=== PATIENT | male | born 1955 | race Caucasian/White ===

== ENCOUNTER 2017-09-19 11:04 | Inpatient (IN) | payer MEDICAID, MEDICARE ==
[2017-09-19 11:04] VITALS: BMI 20.9
--- NOTE | 2017-09-19 11:25 | C.PDOC ---
History Of Present Illness 61 year old male with PMHx of CVA presents to the ED with complaints of "they [ his family] can't take care of me at home." Patient reports he lives at home with his family, , and has visiting nurse. However, patient feels is no longer able to help him due to her being sick. Patient states "she can't help me go to the bathroom so I just go on myself." Patient has no new symptoms and denies fever, chest pain, or other complaints at this time. Time Seen by Provider: 09/19/17 11:21 Chief Complaint (Nursing): Medical Clearance History Per: Patient History/Exam Limitations: no limitations Onset/Duration Of Symptoms: Unknown Pain Scale Rating Of: 0 Reports Recently: Seen In ED Recent travel outside of the [place]: No Additional History Per: EMS, Prior Records Past Medical History Reviewed: Historical Data, Nursing Documentation, Vital Signs Vital Signs: Last Vital Signs Temp 98.5 F 09/19/17 11:15 Pulse 107 H 09/19/17 11:15 Resp 18 09/19/17 11:15 BP 192/115 H 09/19/17 11:15 Pulse Ox 99 09/19/17 13:08 - Medical History PMH: Depression, Diabetes, HTN, Hypercholesterolemia, Seizures Surgical History: Tonsillectomy - [facility] Procedures INJECT/INFUSE ELECTROLYT (05/04/14) INJECT/INFUSE NEC (09/20/14) PSYCHIAT DRUG THERAP NEC (09/06/13) Family History: States: Unknown Family Hx, Diabetes - Social History Hx Tobacco Use: No Hx Alcohol Use: No Hx Substance Use: No - Immunization History Hx Tetanus Toxoid Vaccination: No Hx Influenza Vaccination: Yes Hx Pneumococcal Vaccination: No Review Of Systems Constitutional: Negative for: Fever, Chills Cardiovascular: Negative for: Chest Pain, Palpitations Respiratory: Negative for: Cough, Shortness of Breath Gastrointestinal: Negative for: Nausea, Vomiting, Abdominal Pain Physical Exam - Physical Exam Appears: Non-toxic, No Acute Distress, Unkempt Skin: Warm, Dry, No Rash, Other (dry bodily fluids and feces; Stage I ulcer to buttocks) Head: Atraumatic, Normacephalic, No Tenderness Eye(s): bilateral: Normal Inspection, PERRL, EOMI Oral Mucosa: Moist Neck: Supple Chest: Symmetrical, No Deformity Cardiovascular: Rhythm Regular, No Murmur, Other (Patient is tachycardic ) Respiratory: No Rales, No Rhonchi, No Wheezing, Other (clear to auscultation bilaterally ) Gastrointestinal/Abdominal: Soft, No Tenderness, No Distention, No Guarding, No Rebound Extremity: No Pedal Edema, Capillary Refill (< 2 seconds ), No Swelling Neurological/Psych: Oriented x3, Other (chronic hemiparesis to left uppper and lower extremity ) ED Course And Treatment - Laboratory Results Result Diagrams: 09/19/17 12:14 09/19/17 12:14 ECG: Interpreted By Me, Viewed By Me ECG Rhythm: Sinus Rhythm Rate From EC O2 Sat by Pulse Oximetry: 99 (RA) Pulse Ox Interpretation: Normal - Radiology CXR: Interpreted by Me CXR Interpretation: Yes: No Acute Disease Progress Note: EKG, CXR, blood work, and labs were ordered. Reevaluation Time: 13:26 Reassessment Condition: Unchanged - Physician Consult Information Time Consulting Physician Contacted: 13:26 Physician Contacted: Ilda Garcia Outcome Of Conversation: AWARE OF ER FINDINGS, WILL ADMIT Disposition Counseled Patient/Family Regarding: Studies Performed, Diagnosis - Disposition Disposition: HOSPITALIZED Disposition Time: 13:29 Condition: STABLE Forms: [facility] (Mexican) - POA Present On Arrival: Poor Glycemic Control - Clinical Impression Clinical Impression: Uncontrolled diabetes mellitus, FTT (failure to thrive) in adult - Scribe Statement The provider has reviewed the documentation as recorded by the Scribe Roxanne Cortes All medical record entries made by the Scribe were at my direction and personally dictated by me. I have reviewed the chart and agree that the record accurately reflects my personal performance of the history, physical exam, medical decision making, and the department course for this patient. I have also personally directed, reviewed, and agree with the discharge instructions and disposition. Decision To Admit - Pt Status Changed To: Hospital Disposition Of: Observation - . Bed Request Type: Regular Admitting Physician: Ilda Garcia Patient Diagnosis: Uncontrolled diabetes mellitus, FTT (failure to thrive) in adult
[2017-09-19 12:24] LABS: BASO % 0.7 % (0.0-2.0); EOS # 0.1 K/uL (0.0-0.7); EOS % 2.6 % (0.0-4.0); LYMPH # 1.2 K/uL (1.0-4.3); LYMPH % 31.4 % (20.0-40.0); MEAN CORPUSCULAR HEMOGLOBIN 29.2 pg (27.0-31.0); MEAN CORPUSCULAR HGB CONC 34.4 g/dL (33.0-37.0); MEAN PLATELET VOLUME 7.9 fL (7.2-11.7); MONO # 0.3 K/uL (0.0-0.8); MONO % 8.1 % (0.0-10.0); NRBC % 0.1 % (0.0-2.0); RED CELL DISTRIBUTION WIDTH 14.4 % (11.5-14.5); WHITE BLOOD COUNT 3.9 K/uL (4.8-10.8)
--- NOTE | 2017-09-19 12:33 | RAD ---
PROCEDURE: CHEST RADIOGRAPH, 1 VIEW HISTORY: Medical clearance COMPARISON: None available. FINDINGS: LUNGS: No focal infiltrate or effusion. Small nodular density at the right lung base may represent confluence of shadows with ribs vessels. PLEURA: No pneumothorax or pleural fluid seen. CARDIOVASCULAR: Normal. OSSEOUS STRUCTURES: Degenerative changes in the spine with paravertebral osteophytes. VISUALIZED UPPER ABDOMEN: Normal. OTHER FINDINGS: None. IMPRESSION: No active disease.
[2017-09-19 12:37] LABS: BLOOD UREA NITROGEN 21 mg/dL (9-20); CARBON DIOXIDE 33 mmol/L (22-30); CHLORIDE 102 mmol/L (98-107); GFR AFRICAN-AMERICAN > 60; GLUCOSE,RANDOM 276 mg/dL (75-110); POTASSIUM 3.9 mmol/L (3.6-5.2); SODIUM 142 mmol/L (132-148)
[2017-09-19 13:16] LABS: RBC URINE 1 /hpf (0-3); URINE BILIRUBIN NEGATIVE (NEGATIVE); URINE BLOOD 1+ (NEGATIVE); URINE COLOR Yellow (YELLOW); URINE GLUCOSE (UA) 3+ mg/dL (Normal); URINE KETONE TRACE mg/dL (NEGATIVE); URINE LEUKOCYTE ESTERASE NEG Leu/uL (Negative); URINE PROTEIN 1+ mg/dL (NEGATIVE)
[2017-09-19] MEDS ORDERED: Labetalol 25mg/5ml Syringe IVP STA (13:31)
[2017-09-19] MEDS ORDERED: Oxycodone/Acetaminophen 5/325 mg Tab PO PRN (13:40)
[2017-09-19] MEDS ORDERED: Bisacodyl 5mg EC Tab PO PRN (13:40)
[2017-09-19] MEDS ORDERED: Labetalol 25mg/5ml Syringe ONE (13:54)
[2017-09-19] MEDS ORDERED: Dorzolamide 2% Opht Sol 10ml OU SCH (14:00)
--- NOTE | 2017-09-19 14:03 | CP.PCM.PN ---
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 States he cannot take his meds at appropriate times due to issues with hands/ vision/memory and often urinates on himself because he cannot get to the bathroom without assistance. typically his was able to take care of him, however she has become ill and is no longer able to provide care and the visiting nurse is not able to provide enough time to get all needs addressed. The patient currently denies fevers/chills, GALINDO, CP, SOB, abdominal pain, N/V/D, dysuria/freq/urg or lower extremity pain. 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, HLD Meds: Please refer to MAR Allergies: denies, patient is full code upon discussion Social: lives at home, if goes to [facility] does NOT want [facility] as per patient, unable to accomplish ADL/IADL, needs help ambulating at baseline Objective - Vital Signs/Intake and Output Vital Signs (last 24 hours): Temp Pulse Resp BP Pulse Ox 98.9 F 64 18 161/92 H 99 09/19/17 13:35 09/19/17 13:35 09/19/17 13:35 09/19/17 13:35 09/19/17 13:35 - Medications Medications: Current Medications Acetaminophen (Tylenol 325mg Tab) 650 mg PO Q6 PRN PRN Reason: Fever >100.4 F Aspirin (Aspirin Chewable) 81 mg PO DAILY [facility] Bisacodyl (Dulcolax) 10 mg PO DAILY PRN PRN Reason: Constipation Carvedilol (Coreg) 6.25 mg PO BID [facility] Divalproex Sodium (Depakote Dr) 500 mg PO DAILY [facility] Enoxaparin Sodium (Lovenox) 40 mg SC DAILY [facility] Famotidine (Pepcid) 20 mg PO BID [facility] Home Med (Atorvastatin [Lipitor]) 10 mg PO DIN [facility] Home Med (Brinzolamide [Azopt]) 5 ml OD BID [facility] Home Med (Levemir Flexpen) 30 units SQ HS [facility] Home Med (Travoprost [Travatan Z]) 2.5 ml OU HS [facility] Ibuprofen (Motrin Tab) 400 mg PO Q6 PRN PRN Reason: Pain, Mild (1-3) Insulin Aspart (Novolog) 10 unit SC AC [facility] Losartan Potassium (Cozaar) 100 mg PO DAILY [facility] Ondansetron HCl (Zofran Inj) 4 mg IVP Q6 PRN PRN Reason: Nausea/Vomiting Oxcarbazepine (Trileptal) 150 mg PO BID [facility] Oxycodone/Acetaminophen (Percocet 5/325 Mg Tab) 1 tab PO Q4 PRN PRN Reason: Pain, severe (8-10) Stop: 09/22/17 13:41 Sertraline HCl (Zoloft) 50 mg PO DAILY [facility] Sitagliptin Phosphate (Januvia) 100 mg PO DAILY [facility] - Labs Labs: 09/19/17 12:14 09/19/17 12:14 - Constitutional Appears: Non-toxic - Head Exam Head Exam: ATRAUMATIC - Eye Exam Eye Exam: absent: PERRL (patient has large cataract in right eye, enlarged pupil that is non reactive to light and glossed over, and does not tract similar to eother eye) Pupil Exam: Unequal - ENT Exam ENT Exam: Mucous Membranes Moist - Neck Exam Neck Exam: Full ROM. absent: Lymphadenopathy - Respiratory Exam Respiratory Exam: Clear to Ausculation Bilateral, NORMAL BREATHING PATTERN. absent: Rales, Rhonchi, Wheezes - Cardiovascular Exam Cardiovascular Exam: REGULAR RHYTHM - GI/Abdominal Exam GI & Abdominal Exam: Soft, Normal Bowel Sounds - Extremities Exam Extremities Exam: Full ROM. absent: Calf Tenderness - Back Exam Back Exam: NORMAL INSPECTION. absent: CVA tenderness (L), CVA tenderness (R) - Neurological Exam Neurological Exam: Alert, Awake, Oriented x3 - Psychiatric Exam Psychiatric exam: Normal Affect - Skin Skin Exam: Warm Assessment and Plan - Assessment and Plan (Free Text) Assessment: 61yo M admitted for failure to thrive Failure to Thrive -patient is unable to accomplish all ADL's on own and does not have adequate help at home -patient is partially blind -patient cannot ambulate by self -patient is eating well -will order RPR, B12/Folate, HIV, Hepatitis as they are not in the records; f/u results -patient is full code as per conversation HTN;chronic Carvedilol Losartan PO hydralazine PRN if BP is elevated above 185/95 DM; chronic -hold metformin -RISS low -c/w long acting insulin and januvia from home HLD;chronic -c/w lipitor Previous CVA w/ Defecits Lipitor control HTN Aspirin Proph Pepcid SCD Lovenox Fall Precautions Social work/PT Eval and Treat Brain MRI done last month; patient is at baseline and according to family he is not acting/talking differently and has no complaints at this time Dispo: [facility] will likely need placement into [facility]; patient does not wish to go to [facility] Case discussed with Dr. Garcia
[2017-09-19] MEDS: (Novolog) Insulin Aspart, Recombinant 100 u/ml 10 ml vial SC SCH (17:10)
[2017-09-19] MEDS: Dorzolamide 2% Opht Sol 10ml OU SCH (18:31)
[2017-09-19] MEDS ORDERED: Insulin Detemir 100 units/ml Vial (Levemir) SC SCH (22:00)
[2017-09-19] MEDS: Latanoprost 2.5 ml Opht Soln OU SCH (22:23)
[2017-09-20 06:41] LABS: BASO % 0.5 % (0.0-2.0); EOS # 0.1 K/uL (0.0-0.7); EOS % 1.6 % (0.0-4.0); HEMATOCRIT 34.2 % (35.0-51.0); LYMPH # 1.2 K/uL (1.0-4.3); LYMPH % 26.5 % (20.0-40.0); MEAN CELL VOLUME 84.9 fL (80.0-94.0); MEAN CORPUSCULAR HEMOGLOBIN 28.8 pg (27.0-31.0); MEAN CORPUSCULAR HGB CONC 33.9 g/dL (33.0-37.0); MEAN PLATELET VOLUME 8.2 fL (7.2-11.7); MONO # 0.4 K/uL (0.0-0.8); MONO % 8.9 % (0.0-10.0); NRBC % 0.1 % (0.0-2.0); RED CELL DISTRIBUTION WIDTH 14.3 % (11.5-14.5); WHITE BLOOD COUNT 4.4 K/uL (4.8-10.8)
[2017-09-20 06:56] LABS: ALKALINE PHOSPHATASE 69 U/L (38-126); ALT/SGPT 56 U/L (21-72); AST/SGOT 28 U/L (17-59); BILIRUBIN,TOTAL 0.4 mg/dL (0.2-1.3); BLOOD UREA NITROGEN 19 mg/dL (9-20); CALCIUM 8.9 mg/dl (8.6-10.4); CARBON DIOXIDE 29 mmol/L (22-30); CHLORIDE 103 mmol/L (98-107); GFR AFRICAN-AMERICAN > 60; GLUCOSE,RANDOM 204 mg/dL (75-110); SODIUM 140 mmol/L (132-148); TOTAL PROTEIN 7.6 g/dL (6.3-8.3)
[2017-09-20 07:55] LABS: FOLATE 13.7 ng/mL
--- NOTE | 2017-09-20 07:55 | CP.PCM.PN ---
Subjective - Date & Time of Evaluation Date of Evaluation: 09/20/17 Time of Evaluation: 09:41 - Subjective Subjective: PGY2 Medicine Note for Dr. Garcia; all management as per Dr. Garcia Pt seen and examined at bedside this AM; patient states he has "not had a BM in over a month" and seen in MAR that Dr. Garcia entered orders for laxative but patient still requesting something "stronger" to go to the bathroom; will give mag citrate; patient has no other complaints; denies fevers/chills, GALINDO, CP, SOB , abdominal pain, N/V/D, dysuria/freq/urg, or lower extremity pain/swelling. Patient is newly Hep C Postive; GI consult placed. INR orderdd. HepC viral load ordered and genotyping for tx. Objective - Vital Signs/Intake and Output Vital Signs (last 24 hours): Temp Pulse Resp BP Pulse Ox 98.4 F 91 H 20 159/89 H 98 09/19/17 23:54 09/19/17 23:54 09/19/17 23:54 09/19/17 23:54 09/19/17 23:54 Intake and Output: 09/20/17 09/20/17 06:59 18:59 Intake Total 550 Balance 550 - Medications Medications: Current Medications Acetaminophen (Tylenol 325mg Tab) 650 mg PO Q6 PRN PRN Reason: Fever >100.4 F Aspirin (Aspirin Chewable) 81 mg PO DAILY REPLACED BY [facility] Bisacodyl (Dulcolax) 10 mg PO DAILY PRN PRN Reason: Constipation Carvedilol (Coreg) 12.5 mg PO BID REPLACED BY [facility] Last Admin: 09/19/17 17:51 Dose: 12.5 mg Divalproex Sodium (Depakote Dr) 500 mg PO DAILY REPLACED BY [facility] Dorzolamide HCl (Trusopt) 0 ml OU TID REPLACED BY [facility] Last Admin: 09/19/17 18:31 Dose: 1 drop Enoxaparin Sodium (Lovenox) 40 mg SC DAILY REPLACED BY [facility] Famotidine (Pepcid) 20 mg PO BID REPLACED BY [facility] Last Admin: 09/19/17 17:50 Dose: 20 mg Hydralazine HCl (Apresoline) 25 mg PO Q6H PRN PRN Reason: HTN Last Admin: 09/19/17 17:47 Dose: 25 mg Ibuprofen (Motrin Tab) 400 mg PO Q6 PRN PRN Reason: Pain, Mild (1-3) Insulin Aspart (Novolog) 10 unit SC AC REPLACED [facility] Last Admin: 09/19/17 17:10 Dose: 10 unit Insulin Detemir (Levemir) 30 unit SC HS REPLACED BY [facility] Last Admin: 09/19/17 22:15 Dose: 30 unit Latanoprost (Xalatan Opht) 0 ml OU HS REPLACED BY [facility] Last Admin: 09/19/17 22:23 Dose: 2.5 ml Losartan Potassium (Cozaar) 100 mg PO DAILY REPLACED BY [facility] Last Admin: 09/19/17 14:12 Dose: 100 mg Ondansetron HCl (Zofran Inj) 4 mg IVP Q6 PRN PRN Reason: Nausea/Vomiting Oxcarbazepine (Trileptal) 150 mg PO BID REPLACED BY [facility] Last Admin: 09/19/17 18:31 Dose: 150 mg Oxycodone/Acetaminophen (Percocet 5/325 Mg Tab) 1 tab PO Q4 PRN PRN Reason: Pain, severe (8-10) Stop: 09/22/17 13:41 Pneumococcal Polyvalent Vaccine (Pneumovax 23 Vaccine) 0.5 ml IM .ONCE ONE Stop: 09/21/17 10:01 Rosuvastatin Calcium (Crestor) 5 mg PO DIN REPLACED BY [facility] Sertraline HCl (Zoloft) 50 mg PO DAILY REPLACED BY [facility] Sitagliptin Phosphate (Januvia) 100 mg PO DAILY REPLACED BY [facility] Last Admin: 09/19/17 16:03 Dose: 100 mg - Labs Labs: 09/20/17 06:24 09/20/17 06:24 - Constitutional Appears: Non-toxic - Head Exam Head Exam: ATRAUMATIC - ENT Exam ENT Exam: Mucous Membranes Moist - Neck Exam Neck Exam: Full ROM - Respiratory Exam Respiratory Exam: Clear to Ausculation Bilateral, NORMAL BREATHING PATTERN. absent: Rales, Rhonchi, Wheezes - Cardiovascular Exam Cardiovascular Exam: REGULAR RHYTHM, +S1, +S2 - GI/Abdominal Exam GI & Abdominal Exam: Soft, Normal Bowel Sounds. absent: Tenderness, Mass, Organomegaly, Pulsatile Mass, Rebound - Rectal Exam Rectal Exam: absent: Deferred - Extremities Exam Extremities Exam: Full ROM. absent: Calf Tenderness - Back Exam Back Exam: absent: CVA tenderness (L), CVA tenderness (R) - Neurological Exam Neurological Exam: Alert, Awake, Oriented x3 - Psychiatric Exam Psychiatric exam: Normal Affect - Skin Skin Exam: Warm Assessment and Plan - Assessment and Plan (Free Text) Assessment: 61yo M admitted for failure to thrive Failure to Thrive -patient is unable to accomplish all ADL's on own and does not have adequate help at home -patient is partially blind -patient cannot ambulate by self -patient is eating well -will order RPR, B12/Folate, HIV, Hepatitis as they are not in the records; f/u results -patient is full code as per conversation New Hep C -Hep C positive; will order HCV Viral Load; Genotype; abdominal US -Consult GI; Dr. Cole; appreciate recs -estimated MELD score 6 (no INR today; ordered will f/u) which has a 1.9% chance of 3-month mortality HTN;chronic Carvedilol Losartan PO hydralazine PRN if BP is elevated above 185/95 Anemia;chronic and stable -f/u ferritin TIBC/%sat DM; chronic -hold metformin -RISS low -c/w long acting insulin and januvia from home HLD;chronic -c/w lipitor Previous CVA w/ Defecits Lipitor control HTN Aspirin Proph Pepcid SCD Lovenox Fall Precautions Social work/PT Eval and Treat Brain MRI done last month; patient is at baseline and according to family he is not acting/talking differently and has no complaints at this time Dispo: patient will likely need placement into alf; patient does not wish to go to [facility] f/u with case management for placement; patient will likely need 3 midnights for placement Case discussed with Dr. Garcia
[2017-09-20] MEDS: (Novolog) Insulin Aspart, Recombinant 100 u/ml 10 ml vial SC SCH ×5 (08:30→21:36)
[2017-09-20] MEDS ORDERED: Magnesium Citrate Oral SOL (300 ml) PO ONE ×2 (08:55→10:30)
[2017-09-20] MEDS: Divalproex 500 mg DR Tab PO SCH (11:00)
[2017-09-20] MEDS: Enoxaparin 40 mg Syringe SC SCH (11:00)
[2017-09-20] MEDS: Dorzolamide 2% Opht Sol 10ml OU SCH ×3 (11:00→18:33)
[2017-09-20] MEDS: Multiple Vitamins Tab PO SCH (11:00)
[2017-09-20] MEDS ORDERED: Dextrose 50% SYRINGE Inj (50 ml) IV PRN (14:06)
[2017-09-20] MEDS ORDERED: Glucagon Recombinant 1 mg Inj IM PRN (14:06)
--- NOTE | 2017-09-20 15:47 | US ---
HISTORY: COMPARISON: None available. TECHNIQUE: Sonographic evaluation of the abdomen. FINDINGS: Examination limited by habitus and bowel gas. LIVER: The left hepatic lobe is not well-visualized. Measures 18.4 cm in sagittal dimension. Echogenic liver may be seen in setting of hepatic parenchymal disease or fatty infiltration. No focal hepatic mass identified. The main portal vein appears patent with normal directional flow. No intrahepatic bile duct dilatation. GALLBLADDER: Gallstones. Gallbladder wall thickening measuring up to approximately 4 mm in. Negative sonographic Edmondson's sign as assessed by the commissions manager. COMMON BILE DUCT: Measures 6 mm. PANCREAS: Not well visualized. RIGHT KIDNEY: Measures 10.5 x 5.0 x 5.1 cm. No obstructing calculus or hydronephrosis identified. LEFT KIDNEY: Measures 11.1 x 5.7 x 4.7 cm. No obstructing calculus or hydronephrosis identified. SPLEEN: Measures approximately 11.5 cm. AORTA: Not well-visualized. IVC: Not well-visualized. OTHER FINDINGS: None. IMPRESSION: Examination limited by habitus and bowel gas. Echogenic liver may be seen in setting of hepatic parenchymal disease or fatty infiltration. Gallbladder wall thickening. Cholelithiasis. Negative sonographic Edmondson's sign as assessed by the commissions manager. Correlate clinically.
[2017-09-20] MEDS: Latanoprost 2.5 ml Opht Soln OU SCH (21:36)
[2017-09-20] MEDS: Insulin Detemir 100 units/ml Vial (Levemir) SC SCH (21:37)
--- NOTE | 2017-09-20 21:54 | CARD ---
APPROVED REPORT EKG Measurement Heart [id number] <Conclusion> Normal sinus rhythm Normal ECG
[2017-09-21 06:58] LABS: BASO % 0.5 % (0.0-2.0); EOS # 0.1 K/uL (0.0-0.7); EOS % 1.7 % (0.0-4.0); HEMATOCRIT 32.9 % (35.0-51.0); LYMPH # 1.4 K/uL (1.0-4.3); LYMPH % 28.5 % (20.0-40.0); MEAN CELL VOLUME 84.8 fL (80.0-94.0); MEAN CORPUSCULAR HEMOGLOBIN 29.3 pg (27.0-31.0); MEAN CORPUSCULAR HGB CONC 34.6 g/dL (33.0-37.0); MEAN PLATELET VOLUME 8.3 fL (7.2-11.7); MONO # 0.5 K/uL (0.0-0.8); MONO % 9.6 % (0.0-10.0); NRBC % 0.1 % (0.0-2.0); RED CELL DISTRIBUTION WIDTH 14.4 % (11.5-14.5); WHITE BLOOD COUNT 4.8 K/uL (4.8-10.8)
[2017-09-21 07:02] LABS: IRON 52 ug/dL (49-181)
[2017-09-21 07:05] LABS: ALB/GLOB RATIO 1.5 (1.0-2.1); ALKALINE PHOSPHATASE 62 U/L (38-126); ALT/SGPT 52 U/L (21-72); AST/SGOT 22 U/L (17-59); BILIRUBIN,TOTAL 0.3 mg/dL (0.2-1.3); BLOOD UREA NITROGEN 26 mg/dL (9-20); CALCIUM 8.9 mg/dl (8.6-10.4); CARBON DIOXIDE 32 mmol/L (22-30); CHLORIDE 102 mmol/L (98-107); GFR AFRICAN-AMERICAN > 60; GLUCOSE,RANDOM 205 mg/dL (75-110); POTASSIUM 4.1 mmol/L (3.6-5.2); SODIUM 143 mmol/L (132-148); TOTAL PROTEIN 6.2 g/dL (6.3-8.3)
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
[2017-09-21] MEDS: (Novolog) Insulin Aspart, Recombinant 100 u/ml 10 ml vial SC SCH ×7 (08:30→22:12)
--- NOTE | 2017-09-21 09:42 | CP.PCM.PN ---
Subjective - Date & Time of Evaluation Date of Evaluation: 09/21/17 Time of Evaluation: 09:00 - Subjective Subjective: Medicine Progress Note Patient seen and examined. Patient states that he feels well today with no acute complaints. Patient is alert and oriented and follows commands appropriately. Patient states that he is thirsty and is requesting cold apple juice. He states that he slept well overnight. Denies fever, chest pain, leg pain, shortness of breath. Objective - Vital Signs/Intake and Output Vital Signs (last 24 hours): Temp Pulse Resp BP Pulse Ox 98.1 F 77 20 122/73 96 09/21/17 08:55 09/21/17 08:55 09/21/17 08:55 09/21/17 08:55 09/21/17 08:55 Intake and Output: 09/21/17 09/21/17 06:59 18:59 Intake Total 400 Output Total 2 Balance 398 - Medications Medications: Current Medications Acetaminophen (Tylenol 325mg Tab) 650 mg PO Q6 PRN PRN Reason: Fever >100.4 F Last Admin: 09/20/17 11:29 Dose: 650 mg Amlodipine Besylate (Norvasc) 10 mg PO DAILY [facility] Aspirin (Aspirin Chewable) 81 mg PO DAILY [facility] Last Admin: 09/20/17 11:00 Dose: 81 mg Bisacodyl (Dulcolax) 10 mg PO DAILY PRN PRN Reason: Constipation Carvedilol (Coreg) 25 mg PO BID [facility] Last Admin: 09/20/17 17:57 Dose: 25 mg Dextrose (Dextrose 50% Inj) 0 ml IV STAT PRN; Protocol PRN Reason: Hypoglycemia Protocol Dextrose (Glutose 15) 0 gm PO ONCE PRN; Protocol PRN Reason: Hypoglycemia Protocol Divalproex Sodium (Depakote Dr) 500 mg PO DAILY [facility] Last Admin: 09/20/17 11:00 Dose: 500 mg Dorzolamide HCl (Trusopt) 0 ml OU TID [facility] Last Admin: 09/20/17 18:33 Dose: 1 drop Enoxaparin Sodium (Lovenox) 40 mg SC DAILY [facility] Last Admin: 09/20/17 11:00 Dose: 40 mg Famotidine (Pepcid) 20 mg PO BID [facility] Last Admin: 09/20/17 17:57 Dose: 20 mg Glucagon (Glucagen Diagnostic Kit) 0 mg IM STAT PRN; Protocol PRN Reason: Hypoglycemia Protocol Hydralazine HCl (Apresoline) 50 mg PO Q6H PRN PRN Reason: HTN Dextrose (Dextrose 5% In Water 1000 Ml) 1,000 mls @ 0 mls/hr IV .Q0M PRN; Protocol; Per Protocol PRN Reason: Hypoglycemia Protocol Ibuprofen (Motrin Tab) 400 mg PO Q6 PRN PRN Reason: Pain, Mild (1-3) Insulin Aspart (Novolog) 11 unit SC AC [facility] Last Admin: 09/21/17 08:30 Dose: 11 unit Insulin Aspart (Novolog) 0 unit SC ACHS [facility] PRN Reason: Protocol Last Admin: 09/21/17 08:30 Dose: 1 unit Insulin Detemir (Levemir) 40 unit SC HS [facility] Last Admin: 09/20/17 21:37 Dose: 40 unit Latanoprost (Xalatan Opht) 0 ml OU HS [facility] Last Admin: 09/20/17 21:36 Dose: 2.5 ml Losartan Potassium (Cozaar) 100 mg PO DAILY [facility] Last Admin: 09/20/17 11:00 Dose: 100 mg Metformin HCl (Glucophage Xr) 1,000 mg PO DAILY [facility] Last Admin: 09/20/17 11:00 Dose: 1,000 mg Multivitamins (Hexavitamin) 1 tab PO DAILY [facility] Last Admin: 09/20/17 11:00 Dose: 1 tab Ondansetron HCl (Zofran Inj) 4 mg IVP Q6 PRN PRN Reason: Nausea/Vomiting Oxcarbazepine (Trileptal) 150 mg PO BID [facility] Last Admin: 09/20/17 17:56 Dose: 150 mg Oxycodone/Acetaminophen (Percocet 5/325 Mg Tab) 1 tab PO Q4 PRN PRN Reason: Pain, severe (8-10) Stop: 09/22/17 13:41 Pneumococcal Polyvalent Vaccine (Pneumovax 23 Vaccine) 0.5 ml IM .ONCE ONE Stop: 09/21/17 10:01 Rosuvastatin Calcium (Crestor) 5 mg PO HS [facility] Last Admin: 09/20/17 21:49 Dose: 5 mg Sertraline HCl (Zoloft) 50 mg PO DAILY [facility] Last Admin: 09/20/17 11:00 Dose: 50 mg Sitagliptin Phosphate (Januvia) 100 mg PO DAILY [facility] Last Admin: 09/20/17 11:00 Dose: 100 mg - Labs Labs: 09/21/17 06:40 09/21/17 06:40 PT 11.7 SECONDS (9.7-12.2) 09/20/17 11:19 INR 1.0 09/20/17 11:19 APTT 29 SECONDS (21-34) 09/20/17 11:19 - Constitutional Appears: Non-toxic, No Acute Distress - Head Exam Head Exam: ATRAUMATIC, NORMOCEPHALIC - Eye Exam Pupil Exam: Unequal Additional comments: Right pupil larger than left - ENT Exam ENT Exam: Mucous Membranes Moist, Normal Exam - Respiratory Exam Respiratory Exam: Clear to Ausculation Bilateral, NORMAL BREATHING PATTERN. absent: Rhonchi, Wheezes, Respiratory Distress - Cardiovascular Exam Cardiovascular Exam: REGULAR RHYTHM, +S1, +S2 - GI/Abdominal Exam GI & Abdominal Exam: Soft, Normal Bowel Sounds. absent: Tenderness - Extremities Exam Extremities Exam: Normal Inspection. absent: Pedal Edema - Neurological Exam Neurological Exam: Alert, Awake, Oriented x3 - Psychiatric Exam Psychiatric exam: Normal Mood - Skin Skin Exam: Dry, Normal Color, Warm Assessment and Plan - Assessment and Plan (Free Text) Assessment: Failure to Thrive Patient is unable to accomplish all ADL's on own and does not have adequate help at home. 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 Patient is eating well with healthy appetite. Consult case management for placement. PT/OT eval Brain MRI done last month, patient is at baseline and according to family he is not acting/talking differently and has no complaints at this time. Hepatitis C Hep C positive- will order HCV Viral Load; Genotype Abdominal US- echogenic liver seen in the setting of hepatic disease, gallbladder wall thickening, cholelithiasis. Consult GI Dr. Cole- appreciate recs Estimated MELD score 6 which has a 1.9% chance of 3-month mortality HTN; chronic ASA 81mg PO daily Carvedilol 25mg PO BID Norvasc 10mg PO daily Losartan 100mg PO daily PO hydralazine PRN if BP is elevated above 185/95 Anemia; chronic Hgb stable Iron 52 TIBC 302 % sat 17 Ferritin 115 DM Metformin 1000mg PO BID ISS low Levemir 40u SC HS Novolog 11u SC AC HLD Crestor 5mg PO HS Hx CVA w/Defecits Chronic Left sided weakness Crestor 5mg PO HS ASA 81mg PO daily Blood pressure management Hx Seizure Disorder Trileptal 150mg PO BID Monitor/aspiration precautions Prophylactic measures Code Status- Full Code Pepcid 20mg PO BID SCD Lovenox 40mg SC daily Fall Precautions Social work Dispo: patient will likely need placement into residential; patient does not wish to go to [facility] f/u with case management for placement; patient will likely need 3 midnights for placement. Case discussed with Dr. Garcia
[2017-09-21] MEDS: Divalproex 500 mg DR Tab PO SCH (09:59)
[2017-09-21] MEDS: Multiple Vitamins Tab PO SCH (09:59)
[2017-09-21] MEDS ORDERED: Pneumococcal 23-Valent Vaccine IM ONE (10:00)
[2017-09-21] MEDS: Dorzolamide 2% Opht Sol 10ml OU SCH ×3 (10:01→18:23)
[2017-09-21] MEDS: Enoxaparin 40 mg Syringe SC SCH (10:01)
--- NOTE | 2017-09-21 12:08 | PN ---
DATE: LOCATION: [facility], [facility]. SUBJECTIVE: This is a 61 years old male seen and examined in rounds without significant clinical changes with reported left-sided weakness, but somewhat able to move the left leg and slightly the left hand. 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 The entire chart is reviewed including but not limited to the most recent lab and radiology study results, current and the previous medication list, current and the previous medical events. Case discussed with the staff at length. Today's labs showed hemoglobin of 11.4, hematocrit 32.9 with mildly elevated CO2 content 32, BUN elevated at 26, but normal creatinine with blood glucose level 197 and low total protein of 6.2. Hepatitis profile was reported to be negative as well as HIV antibodies. The patient had abdominal ultrasound with possible fatty infiltrate of the liver with evidence of cholelithiasis. PHYSICAL EXAMINATION: GENERAL: A 61 years old male, appeared to be somewhat more awake. He stated that he feels gradually better than before. Somewhat following commands. VITAL SIGNS: The patient is afebrile with pulse of 72, respiratory rate 20 to 22 with blood pressure of 130/76. HEENT: Showed pale dry oral mucous membrane. Nonicteric sclerae. LUNGS: Few scattered crepitation. Decreased air entry at bases. HEART: Positive S1 and S2. ABDOMEN: Soft. Bowel sounds are present. No mass or organomegaly. No rebound tenderness or guarding. EXTREMITIES: With slight left-sided weakness with no clubbing or cyanosis, but left hand edematous changes. NEUROLOGIC: No new reported neurological deficits, sensory or motor. IMPRESSION: 1. Recently reported failure to thrive, improving slightly, but not adequately so far. 2. Reported history of hepatitis C viral infection. 3. Known history of but not limited to diabetes mellitus, hypertension with hyperlipidemia. 4. History of cerebrovascular accident as well as seizure disorder. 5. Anemia. No evidence of active bleeding. That could be secondary to chronic disease. SUGGESTION: 1. Agree with your plan. 2. Calorie counting. 3. Swallow evaluation if the patient's oral intake is less than before. Further recommendation to follow. Marcela Spencer MD
[2017-09-21] MEDS: Latanoprost 2.5 ml Opht Soln OU SCH (21:20)
[2017-09-21] MEDS: Insulin Detemir 100 units/ml Vial (Levemir) SC SCH (21:20)
--- NOTE | 2017-09-22 07:48 | CP.PCM.PN ---
Subjective - Date & Time of Evaluation Date of Evaluation: 09/22/17 Time of Evaluation: 11:26 - Subjective Subjective: Medicine Progress Note Patient seen and examined. Patient states that he feels well today with no acute complaints. Patient worked with physical therapy yesterday. He currently denies fever, chest pain, shortness of breath, palpitations, cough, and headache. Objective - Vital Signs/Intake and Output Vital Signs (last 24 hours): Temp Pulse Resp BP Pulse Ox 97.9 F 76 20 116/77 96 09/21/17 23:50 09/21/17 23:50 09/21/17 23:50 09/21/17 23:50 09/21/17 23:50 Intake and Output: 09/22/17 09/22/17 06:59 18:59 Intake Total 420 Output Total 250 Balance 170 - Medications Medications: Current Medications Acetaminophen (Tylenol 325mg Tab) 650 mg PO Q6 PRN PRN Reason: Fever >100.4 F Last Admin: 09/20/17 11:29 Dose: 650 mg Amlodipine Besylate (Norvasc) 10 mg PO DAILY [facility] Last Admin: 09/21/17 10:00 Dose: 10 mg Aspirin (Aspirin Chewable) 81 mg PO DAILY [facility] Last Admin: 09/21/17 09:59 Dose: 81 mg Bisacodyl (Dulcolax) 10 mg PO DAILY PRN PRN Reason: Constipation Carvedilol (Coreg) 25 mg PO BID [facility] Last Admin: 09/21/17 17:19 Dose: 25 mg Dextrose (Dextrose 50% Inj) 0 ml IV STAT PRN; Protocol PRN Reason: Hypoglycemia Protocol Dextrose (Glutose 15) 0 gm PO ONCE PRN; Protocol PRN Reason: Hypoglycemia Protocol Divalproex Sodium (Depakote Dr) 500 mg PO DAILY [facility] Last Admin: 09/21/17 09:59 Dose: 500 mg Dorzolamide HCl (Trusopt) 0 ml OU TID [facility] Last Admin: 09/21/17 18:23 Dose: 1 drop Enoxaparin Sodium (Lovenox) 40 mg SC DAILY [facility] Last Admin: 09/21/17 10:01 Dose: 40 mg Famotidine (Pepcid) 20 mg PO BID [facility] Last Admin: 09/21/17 17:20 Dose: 20 mg Glucagon (Glucagen Diagnostic Kit) 0 mg IM STAT PRN; Protocol PRN Reason: Hypoglycemia Protocol Hydralazine HCl (Apresoline) 50 mg PO Q6H PRN PRN Reason: HTN Dextrose (Dextrose 5% In Water 1000 Ml) 1,000 mls @ 0 mls/hr IV .Q0M PRN; Protocol; Per Protocol PRN Reason: Hypoglycemia Protocol Ibuprofen (Motrin Tab) 400 mg PO Q6 PRN PRN Reason: Pain, Mild (1-3) Insulin Aspart (Novolog) 11 unit SC AC [facility] Last Admin: 09/21/17 17:24 Dose: 11 unit Insulin Aspart (Novolog) 0 unit SC ACHS [facility] PRN Reason: Protocol Last Admin: 09/21/17 22:12 Dose: Not Given Insulin Detemir (Levemir) 40 unit SC HS [facility] Last Admin: 09/21/17 21:20 Dose: 40 unit Latanoprost (Xalatan Opht) 0 ml OU HS [facility] Last Admin: 09/21/17 21:20 Dose: 2.5 ml Losartan Potassium (Cozaar) 100 mg PO DAILY [facility] Last Admin: 09/21/17 09:59 Dose: 100 mg Metformin HCl (Glucophage Xr) 1,000 mg PO DAILY [facility] Last Admin: 09/21/17 09:58 Dose: 1,000 mg Multivitamins (Hexavitamin) 1 tab PO DAILY [facility] Last Admin: 09/21/17 09:59 Dose: 1 tab Ondansetron HCl (Zofran Inj) 4 mg IVP Q6 PRN PRN Reason: Nausea/Vomiting Oxcarbazepine (Trileptal) 150 mg PO BID [facility] Last Admin: 09/21/17 17:20 Dose: 150 mg Oxycodone/Acetaminophen (Percocet 5/325 Mg Tab) 1 tab PO Q4 PRN PRN Reason: Pain, severe (8-10) Stop: 09/22/17 13:41 Last Admin: 09/21/17 10:14 Dose: 1 tab Rosuvastatin Calcium (Crestor) 5 mg PO HS [facility] Last Admin: 09/21/17 21:20 Dose: 5 mg Sertraline HCl (Zoloft) 50 mg PO DAILY [facility] Last Admin: 09/21/17 09:59 Dose: 50 mg Sitagliptin Phosphate (Januvia) 100 mg PO DAILY [facility] Last Admin: 09/21/17 09:59 Dose: 100 mg - Labs Labs: 09/21/17 06:40 09/21/17 06:40 PT 11.7 SECONDS (9.7-12.2) 09/20/17 11:19 INR 1.0 09/20/17 11:19 APTT 29 SECONDS (21-34) 09/20/17 11:19 - Constitutional Appears: Non-toxic, No Acute Distress - Head Exam Head Exam: ATRAUMATIC, NORMOCEPHALIC - Eye Exam Pupil Exam: Unequal Additional comments: Right pupil larger than left - ENT Exam ENT Exam: Mucous Membranes Moist, Normal Exam - Respiratory Exam Respiratory Exam: Clear to Ausculation Bilateral, NORMAL BREATHING PATTERN. absent: Rhonchi, Wheezes, Respiratory Distress - Cardiovascular Exam Cardiovascular Exam: REGULAR RHYTHM, +S1, +S2 - GI/Abdominal Exam GI & Abdominal Exam: Soft, Normal Bowel Sounds. absent: Tenderness - Extremities Exam Extremities Exam: Normal Inspection. absent: Pedal Edema - Neurological Exam Neurological Exam: Alert, Awake, Oriented x3 - Psychiatric Exam Psychiatric exam: Normal Mood - Skin Skin Exam: Dry, Normal Color, Warm Assessment and Plan - Assessment and Plan (Free Text) Assessment: Failure to Thrive Patient is unable to accomplish all ADL's on own and does not have adequate help at home. 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 Patient is eating well with healthy appetite. Consult case management for placement. PT/OT eval Brain MRI done last month, patient is at baseline and according to family he is not acting/talking differently and has no complaints at this time. Hepatitis C Hep C positive- will order HCV Viral Load; Genotype Abdominal US- echogenic liver seen in the setting of hepatic disease, gallbladder wall thickening, cholelithiasis. Consult GI Dr. Cole- appreciate recs Estimated MELD score 6 which has a 1.9% chance of 3-month mortality HTN; chronic ASA 81mg PO daily Carvedilol 25mg PO BID Norvasc 10mg PO daily Losartan 100mg PO daily PO hydralazine PRN if BP is elevated above 185/95 Anemia; chronic Hgb stable Iron 52 TIBC 302 % sat 17 Ferritin 115 DM Metformin 1000mg PO BID ISS low Levemir 40u SC HS Novolog 11u SC AC HLD Crestor 5mg PO HS Hx CVA w/Defecits Chronic Left sided weakness Crestor 5mg PO HS ASA 81mg PO daily Blood pressure management Hx Seizure Disorder Trileptal 150mg PO BID Monitor/aspiration precautions Prophylactic measures Code Status- Full Code Pepcid 20mg PO BID SCD Lovenox 40mg SC daily Fall Precautions Social work Dispo: patient will likely need placement into retirement placement; patient does not wish to go to [facility] f/ with case management for placement; patient will likely need 3 midnights for placement. Case discussed with Dr. Garcia
[2017-09-22] MEDS: (Novolog) Insulin Aspart, Recombinant 100 u/ml 10 ml vial SC SCH ×7 (08:16→23:29)
[2017-09-22 08:44] LABS: BASO % 0.6 % (0.0-2.0); EOS # 0.2 K/uL (0.0-0.7); EOS % 2.9 % (0.0-4.0); HEMATOCRIT 31.2 % (35.0-51.0); LYMPH # 1.7 K/uL (1.0-4.3); LYMPH % 29.7 % (20.0-40.0); MEAN CELL VOLUME 85.6 fL (80.0-94.0); MEAN CORPUSCULAR HEMOGLOBIN 29.9 pg (27.0-31.0); MEAN CORPUSCULAR HGB CONC 34.9 g/dL (33.0-37.0); MEAN PLATELET VOLUME 8.8 fL (7.2-11.7); MONO # 0.6 K/uL (0.0-0.8); MONO % 9.8 % (0.0-10.0); NRBC % 0.2 % (0.0-2.0); RED CELL DISTRIBUTION WIDTH 14.1 % (11.5-14.5); WHITE BLOOD COUNT 5.8 K/uL (4.8-10.8)
[2017-09-22 09:25] LABS: ALKALINE PHOSPHATASE 57 U/L (38-126); ALT/SGPT 47 U/L (21-72); AST/SGOT 20 U/L (17-59); BILIRUBIN,TOTAL 0.3 mg/dL (0.2-1.3); BLOOD UREA NITROGEN 32 mg/dL (9-20); CALCIUM 8.4 mg/dl (8.6-10.4); CARBON DIOXIDE 32 mmol/L (22-30); CHLORIDE 102 mmol/L (98-107); GFR AFRICAN-AMERICAN > 60; GLUCOSE,RANDOM 150 mg/dL (75-110); SODIUM 139 mmol/L (132-148); TOTAL PROTEIN 6.9 g/dL (6.3-8.3)
[2017-09-22] MEDS: Divalproex 500 mg DR Tab PO SCH (10:44)
[2017-09-22] MEDS: Multiple Vitamins Tab PO SCH (10:44)
[2017-09-22] MEDS: Enoxaparin 40 mg Syringe SC SCH (10:45)
[2017-09-22] MEDS: Dorzolamide 2% Opht Sol 10ml OU SCH ×3 (10:46→17:36)
--- NOTE | 2017-09-22 13:23 | PN ---
DATE: LOCATION: [facility], [facility]. SUBJECTIVE: This is a 61 years old male, seen and examined early in rounds, indicating he is improved clinically without any reported complaint, had been on physical therapy without reported active bleeding, nausea or vomiting with slight increase of oral intake, but still not adequate. The entire chart is reviewed including but not limited to the most recent lab and radiology study results, current and the previous medication list, current and the previous medical events and today's labs showed increased BUN at 32, but normal creatinine with blood glucose level of 148, low calcium 8.4 with low hemoglobin 10.9, low hematocrit 31.2, but normal platelet count. PHYSICAL EXAMINATION: GENERAL: A 61 years old male. VITAL SIGNS: Afebrile with pulse of 70, respiratory rate 20 to 22, blood pressure 120/74. HEENT: Showed pale dry oral mucous membrane. Nonicteric sclerae. LUNGS: Few scattered crepitation. Decreased air entry at bases. HEART: Positive S1 and S2. ABDOMEN: Soft. Bowel sounds are present with mild generalized tenderness. No mass or organomegaly. No rebound tenderness or guarding. EXTREMITIES: With slight left-sided weakness. No clubbing or cyanosis. NEUROLOGIC: No other reported new neurological deficits, sensory or motor. IMPRESSION: 1. Failure to thrive, gradually improving. 2. Malnutrition. 3. Hypoalbuminemia. 4. Reported history of hepatitis C viral infection. 5. Known history of but not limited to hypertension, hyperlipidemia, diabetes mellitus. 6. History of seizure disorder with cerebrovascular accident. 7. Anemia, most likely secondary to chronic disease. However, the possibility of gastrointestinal blood loss, upper versus lower, should be kept in mind. SUGGESTION: 1. Continue current management. 2. Swallow evaluation. 3. Cancer markers. 4. Further recommendation to follow and the patient may need endoscopic evaluation of the GI tract when he is more stable clinically. Marcela Spencer MD
[2017-09-22 19:46] LABS: CARCINOEMBRYONIC ANTIGEN 3.9 ng/mL (0-3.0)
[2017-09-22 19:50] LABS: CA 19-9 7.4 U/mL (0-37)
[2017-09-22] MEDS: Insulin Detemir 100 units/ml Vial (Levemir) SC SCH (21:34)
[2017-09-22] MEDS: Latanoprost 2.5 ml Opht Soln OU SCH (23:31)
[2017-09-23] MEDS: (Novolog) Insulin Aspart, Recombinant 100 u/ml 10 ml vial SC SCH ×7 (07:34→21:15)
[2017-09-23 07:56] LABS: BASO % 0.6 % (0.0-2.0); EOS # 0.2 K/uL (0.0-0.7); EOS % 2.9 % (0.0-4.0); HEMATOCRIT 32.2 % (35.0-51.0); LYMPH # 1.6 K/uL (1.0-4.3); MEAN CELL VOLUME 85.6 fL (80.0-94.0); MEAN CORPUSCULAR HEMOGLOBIN 29.4 pg (27.0-31.0); MEAN CORPUSCULAR HGB CONC 34.3 g/dL (33.0-37.0); MEAN PLATELET VOLUME 8.7 fL (7.2-11.7); MONO # 0.5 K/uL (0.0-0.8); MONO % 8.5 % (0.0-10.0); NRBC % 0.2 % (0.0-2.0); RED CELL DISTRIBUTION WIDTH 14.5 % (11.5-14.5); WHITE BLOOD COUNT 6.2 K/uL (4.8-10.8)
[2017-09-23 08:28] LABS: ALB/GLOB RATIO 1.5 (1.0-2.1); ALKALINE PHOSPHATASE 56 U/L (38-126); ALT/SGPT 33 U/L (21-72); AST/SGOT 23 U/L (17-59); BILIRUBIN,TOTAL 0.3 mg/dL (0.2-1.3); BLOOD UREA NITROGEN 30 mg/dL (9-20); CALCIUM 8.7 mg/dl (8.6-10.4); CARBON DIOXIDE 27 mmol/L (22-30); CHLORIDE 101 mmol/L (98-107); GFR AFRICAN-AMERICAN > 60; GLUCOSE,RANDOM 135 mg/dL (75-110); POTASSIUM 4.5 mmol/L (3.6-5.2); SODIUM 137 mmol/L (132-148); TOTAL PROTEIN 5.9 g/dL (6.3-8.3)
--- NOTE | 2017-09-23 09:06 | CP.PCM.PN ---
Subjective - Date & Time of Evaluation Date of Evaluation: 09/23/17 Time of Evaluation: 09:05 - Subjective Subjective: Progress Note for Dr. Garcia's Service Patient seen and examined. He states that he is feeling well today, denies any acute complaints. He is continuing to work with physical therapy yesterday. He is asking about discharge and states that he feels well enough to leave the hospital. He denies fever, chills, chest pain, shortness of breath, palpitations , cough, changes in bowel/bladder habits. Objective - Vital Signs/Intake and Output Vital Signs (last 24 hours): Temp Pulse Resp BP Pulse Ox 98 F 73 16 106/67 100 09/22/17 23:51 09/22/17 23:51 09/22/17 23:51 09/22/17 23:51 09/22/17 23:51 Intake and Output: 09/23/17 09/23/17 06:59 18:59 Intake Total 400 Balance 400 - Medications Medications: Current Medications Acetaminophen (Tylenol 325mg Tab) 650 mg PO Q6 PRN PRN Reason: Fever >100.4 F Last Admin: 09/22/17 10:53 Dose: 650 mg Amlodipine Besylate (Norvasc) 10 mg PO DAILY [facility] Last Admin: 09/22/17 10:44 Dose: 10 mg Aspirin (Aspirin Chewable) 81 mg PO DAILY [facility] Last Admin: 09/22/17 10:44 Dose: 81 mg Bisacodyl (Dulcolax) 10 mg PO DAILY PRN PRN Reason: Constipation Carvedilol (Coreg) 25 mg PO BID [facility] Last Admin: 09/22/17 17:36 Dose: 25 mg Dextrose (Dextrose 50% Inj) 0 ml IV STAT PRN; Protocol PRN Reason: Hypoglycemia Protocol Dextrose (Glutose 15) 0 gm PO ONCE PRN; Protocol PRN Reason: Hypoglycemia Protocol Divalproex Sodium (Depakote Dr) 500 mg PO DAILY [facility] Last Admin: 09/22/17 10:44 Dose: 500 mg Dorzolamide HCl (Trusopt) 0 ml OU TID [facility] Last Admin: 09/22/17 17:36 Dose: 1 drop Enoxaparin Sodium (Lovenox) 40 mg SC DAILY [facility] Last Admin: 09/22/17 10:45 Dose: 40 mg Famotidine (Pepcid) 20 mg PO BID [facility] Last Admin: 09/22/17 17:30 Dose: 20 mg Glucagon (Glucagen Diagnostic Kit) 0 mg IM STAT PRN; Protocol PRN Reason: Hypoglycemia Protocol Hydralazine HCl (Apresoline) 50 mg PO Q6H PRN PRN Reason: HTN Dextrose (Dextrose 5% In Water 1000 Ml) 1,000 mls @ 0 mls/hr IV .Q0M PRN; Protocol; Per Protocol PRN Reason: Hypoglycemia Protocol Ibuprofen (Motrin Tab) 400 mg PO Q6 PRN PRN Reason: Pain, Mild (1-3) Insulin Aspart (Novolog) 11 unit SC AC [facility] Last Admin: 09/23/17 07:42 Dose: 11 unit Insulin Aspart (Novolog) 0 unit SC ACHS [facility] PRN Reason: Protocol Last Admin: 09/23/17 07:34 Dose: Not Given Insulin Detemir (Levemir) 40 unit SC HS [facility] Last Admin: 09/22/17 21:34 Dose: 40 unit Latanoprost (Xalatan Opht) 0 ml OU HS [facility] Last Admin: 09/22/17 23:31 Dose: 2.5 ml Losartan Potassium (Cozaar) 100 mg PO DAILY [facility] Last Admin: 09/22/17 10:44 Dose: 100 mg Metformin HCl (Glucophage Xr) 1,000 mg PO DAILY [facility] Last Admin: 09/22/17 10:44 Dose: 1,000 mg Multivitamins (Hexavitamin) 1 tab PO DAILY [facility] Last Admin: 09/22/17 10:44 Dose: 1 tab Ondansetron HCl (Zofran Inj) 4 mg IVP Q6 PRN PRN Reason: Nausea/Vomiting Oxcarbazepine (Trileptal) 150 mg PO BID [facility] Last Admin: 09/22/17 17:36 Dose: 150 mg Rosuvastatin Calcium (Crestor) 5 mg PO HS [facility] Last Admin: 09/22/17 21:34 Dose: 5 mg Sertraline HCl (Zoloft) 50 mg PO DAILY [facility] Last Admin: 09/22/17 10:44 Dose: 50 mg Sitagliptin Phosphate (Januvia) 100 mg PO DAILY [facility] Last Admin: 09/22/17 10:45 Dose: 100 mg - Labs Labs: 09/23/17 07:33 09/23/17 07:33 PT 11.7 SECONDS (9.7-12.2) 09/20/17 11:19 INR 1.0 09/20/17 11:19 APTT 29 SECONDS (21-34) 09/20/17 11:19 - Constitutional Appears: Non-toxic - Head Exam Head Exam: ATRAUMATIC, NORMAL INSPECTION - Eye Exam Pupil Exam: Unequal (R>L) - ENT Exam ENT Exam: Mucous Membranes Dry - Respiratory Exam Respiratory Exam: Clear to Ausculation Bilateral, NORMAL BREATHING PATTERN. absent: Accessory Muscle Use, Rhonchi, Wheezes, Respiratory Distress - Cardiovascular Exam Cardiovascular Exam: REGULAR RHYTHM, +S1, +S2 - GI/Abdominal Exam GI & Abdominal Exam: Soft, Normal Bowel Sounds. absent: Distended, Guarding, Tenderness - Extremities Exam Extremities Exam: absent: Calf Tenderness, Pedal Edema - Neurological Exam Neurological Exam: Alert, Awake, Oriented x3 - Skin Skin Exam: Dry, Intact, Normal Color Assessment and Plan - Assessment and Plan (Free Text) Plan: Failure to Thrive Patient is unable to accomplish all ADL's on own and does not have adequate help at home. 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 Patient is eating well with healthy appetite. Consult case management for placement. PT/OT eval Brain MRI done last month, patient is at baseline and according to family he is not acting/talking differently and has no complaints at this time. Hepatitis C Hep C positive- will need outpatient follow up for treatment Abdominal US- echogenic liver seen in the setting of hepatic disease, gallbladder wall thickening, cholelithiasis. Consult GI Dr. Cole- appreciate recs Estimated MELD score 6 which has a 1.9% chance of 3-month mortality Elevated CEA 3.9 on 09/22 Pt denied ever having a colonoscopy. He denies any changes in bladder habits, stool caliber and hematochezia He will need follow up with GI for evaluation/screening outpatient HTN; chronic ASA 81mg PO daily Carvedilol 25mg PO BID Norvasc 10mg PO daily Losartan 100mg PO daily PO hydralazine PRN if BP is elevated above 185/95 Anemia; chronic Hgb stable Iron 52 TIBC 302 % sat 17 Ferritin 115 DM Metformin 1000mg PO BID ISS low Levemir 40u SC HS Novolog 11u SC AC HLD Crestor 5mg PO HS Hx CVA w/Defecits Chronic Left sided weakness Crestor 5mg PO HS ASA 81mg PO daily Blood pressure management Hx Seizure Disorder Trileptal 150mg PO BID Monitor/aspiration precautions Prophylactic measures Code Status- Full Code Pepcid 20mg PO BID SCD Lovenox 40mg SC daily Fall Precautions Social work Dispo: patient will likely need placement into [facility] [employer] placement; patient does not wish to go to [facility] f/u with case management for placement Case discussed with Dr. Garcia
[2017-09-23] MEDS: Dorzolamide 2% Opht Sol 10ml OU SCH ×3 (10:29→17:13)
[2017-09-23] MEDS: Divalproex 500 mg DR Tab PO SCH (10:30)
[2017-09-23] MEDS: Multiple Vitamins Tab PO SCH (10:30)
[2017-09-23] MEDS: Enoxaparin 40 mg Syringe SC SCH (10:32)
--- NOTE | 2017-09-23 10:59 | PN ---
DATE: LOCATION: [facility], bed B. SUBJECTIVE: This is a 61 years old male, seen and examined early in rounds without significant clinical changes, tolerating oral intake well according to the statement, indicating that he is improving clinically with somewhat increase of his oral intake, is still under the physical therapy treatment. No reported chest pain, palpitation, significant shortness of breath or vomiting today. The entire chart is reviewed including but not limited to the most recent lab and radiology study results, current and the previous medication list, current and the previous medical events. Case discussed with the staff at length. Today's labs showed low hemoglobin of 11.1, hematocrit 32.2 with BUN of 30, but normal creatinine with blood glucose level of 128 and low total protein 5.9. His CEA level of 3.9, elevated for which the patient may need colonoscopy. It has to be mentioned that the patient mentioned that he wants to go home and further workup could be done as outpatient. PHYSICAL EXAMINATION: GENERAL: A 61 years old male. Awake, alert. VITAL SIGNS: Afebrile with pulse of 70, respiratory rate 18 to 20, blood pressure 110/60. HEENT: Showed pale dry oral mucous membrane. Nonicteric sclerae. LUNGS: Few scattered crepitation. Decreased air entry at bases. HEART: Positive S1 and S2. ABDOMEN: Soft. Bowel sounds are present. No mass or organomegaly. No rebound tenderness or guarding, but midepigastric and midabdominal tenderness. RECTAL: Examination the patient refused. EXTREMITIES: Without lower extremity edematous changes. No clubbing or cyanosis. NEUROLOGIC: No new reported neurological deficits, sensory or motor. No focal deficits. Peripheral pulses are present bilaterally. IMPRESSION: 1. Malnutrition, improving clinically with more oral intake. 2. Recent history of hypoalbuminemia. 3. Reported history of hepatitis C viral infection. The patient is to have treatment as outpatient. 4. Known history of but not limited to diabetes mellitus, hyperlipidemias, hypertension. 5. 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 6. Anemia. The possibility of gastrointestinal blood loss was raised as the patient has guaiac positive stool, versus occult gastrointestinal malignancy due to increased CEA level. SUGGESTION: 1. Agree with your plan. 2. The patient is to have endoscopic evaluation of the gastrointestinal tract due to above including colonoscopy due to increased CEA level and his anemia. 3. Advanced oral intake. 4. Further recommendation to follow. Marcela Spencer MD
[2017-09-23 17:03] VITALS: RESP 20
[2017-09-23 19:25] LABS: HEPATITIS C VIRAL RNA QUAL Not detected
[2017-09-23] MEDS: Latanoprost 2.5 ml Opht Soln OU SCH (21:13)
[2017-09-23] MEDS: Insulin Detemir 100 units/ml Vial (Levemir) SC SCH (21:14)
[2017-09-24 06:54] LABS: BASO % 0.6 % (0.0-2.0); EOS # 0.1 K/uL (0.0-0.7); EOS % 2.7 % (0.0-4.0); HEMATOCRIT 31.3 % (35.0-51.0); LYMPH # 1.3 K/uL (1.0-4.3); LYMPH % 25.6 % (20.0-40.0); MEAN CELL VOLUME 84.1 fL (80.0-94.0); MEAN CORPUSCULAR HEMOGLOBIN 29.9 pg (27.0-31.0); MEAN CORPUSCULAR HGB CONC 35.5 g/dL (33.0-37.0); MEAN PLATELET VOLUME 8.4 fL (7.2-11.7); MONO # 0.4 K/uL (0.0-0.8); MONO % 8.4 % (0.0-10.0); NRBC % 0.1 % (0.0-2.0); RED CELL DISTRIBUTION WIDTH 14.2 % (11.5-14.5); WHITE BLOOD COUNT 5.1 K/uL (4.8-10.8)
[2017-09-24 07:14] LABS: ALKALINE PHOSPHATASE 56 U/L (38-126); ALT/SGPT 48 U/L (21-72); AST/SGOT 29 U/L (17-59); BILIRUBIN,TOTAL 0.3 mg/dL (0.2-1.3); BLOOD UREA NITROGEN 29 mg/dL (9-20); CALCIUM 8.8 mg/dl (8.6-10.4); CARBON DIOXIDE 28 mmol/L (22-30); CHLORIDE 101 mmol/L (98-107); GFR AFRICAN-AMERICAN > 60; GLUCOSE,RANDOM 218 mg/dL (75-110); POTASSIUM 4.5 mmol/L (3.6-5.2); SODIUM 136 mmol/L (132-148); TOTAL PROTEIN 6.9 g/dL (6.3-8.3)
[2017-09-24] MEDS: (Novolog) Insulin Aspart, Recombinant 100 u/ml 10 ml vial SC SCH ×5 (08:09→11:32)
--- NOTE | 2017-09-24 08:48 | PN ---
DATE: LOCATION: [address] [place] [place] [address] B. SUBJECTIVE: This 61 years old male seen and examined in rounds without significant clinical changes or reported active bleeding with somewhat more oral intake. The entire chart is reviewed including but not limited to the most recent lab and radiology study results, current and the previous medication list, current and the previous medical events. Today's labs showed hemoglobin of 11.1, hematocrit 31.3 with normal white blood cells and increased blood glucose level 218 with increased BUN to 29, but normal creatinine. PHYSICAL EXAMINATION: GENERAL: A 61 years old male. Afebrile, awake, alert. VITAL SIGNS: Blood pressure of 120/76, respiratory rate 20 to 22, heart rate of 82. HEENT: Showed pale dry oral mucous membrane. Nonicteric sclerae. LUNGS: Few scattered crepitation. Decreased air entry at bases. HEART: Positive S1 and S2. ABDOMEN: Soft. Bowel sounds are present with slight generalized tenderness. No mass or organomegaly. No rebound tenderness or guarding. EXTREMITIES: Without significant clubbing, cyanosis or edema. IMPRESSION: 1. Malnutrition, gradually improving. 2. Dehydration. 3. Reported history of hepatitis C viral infection, to be treated as outpatient. 4. Known history of hyperlipidemia, diabetes mellitus with hypertension. 5. Reported history of cerebrovascular accident with seizure disorder and slight left-sided weakness. 6. Anemia. The possibility of gastrointestinal blood loss versus anemia secondary to chronic disease was raised as well as occult gastrointestinal malignancy to increased CEA. SUGGESTION: 1. Continue current management. 2. The patient will need endoscopic evaluation of the GI tract again when he is more stable clinically. Further recommendation to follow. Marcela Spencer MD
[2017-09-24] MEDS: Multiple Vitamins Tab PO SCH (09:59)
[2017-09-24] MEDS: Divalproex 500 mg DR Tab PO SCH (09:59)
[2017-09-24] MEDS: Dorzolamide 2% Opht Sol 10ml OU SCH ×2 (10:02→13:37)
[2017-09-24] MEDS: Enoxaparin 40 mg Syringe SC SCH (10:02)
[2017-09-24 16:43] VITALS: BP 130/79; PULSE 82; TEMP 98.6; O2SAT 96
--- NOTE | 2017-09-28 06:52 | DS ---
HISTORY OF PRESENT ILLNESS: The patient admitted to the hospital with chief complaint of frequent fall, weakness, fatigue, and failure to thrive. Came to the ER. Placed on bedrest, supportive care. When ready for Rehab, the patient was transferred to assisted. DIAGNOSES: Deconditioning, old cerebrovascular accident. Ilda Garcia MD
== END 2017-09-24 16:30 | DRG 641 ==
LOC: C.ER 11:04 → OBSVTOIN 13:33 → C.9E 13:33 → C.3T 16:32
PROVIDERS: ADMIT Internal Medicine Pulmonary Disease; ATTEND Internal Medicine Pulmonary Disease
DX: R62.7 Adult failure to thrive (principal); E46 Unspecified protein-calorie malnutrition; E11.65 Type 2 diabetes mellitus with hyperglycemia; B19.20 Unspecified viral hepatitis C without hepatic coma; D63.8 Anemia in other chronic diseases classified elsewhere; E78.5 Hyperlipidemia, unspecified; E86.0 Dehydration; G40.909 Epilepsy, unspecified, not intractable, without status epilepticus; I10 Essential (primary) hypertension; Z79.4 Long term (current) use of insulin; H54.61 Unqualified visual loss, right eye, normal vision left eye; Z86.73 Personal history of transient ischemic attack (TIA), and cerebral infarction without residual deficits

== ENCOUNTER 2017-11-21 18:27 | Inpatient (IN) | payer MEDICAID, MEDICARE ==
[2017-11-21 19:03] VITALS: BMI 26.6
[2017-11-21] MEDS ORDERED: Sodium Chloride 0.9% 500 ML IV ONE (19:31)
[2017-11-21] MEDS ORDERED: Sodium Chloride 0.9% 1,000 ML IV ONE (19:31)
--- NOTE | 2017-11-21 19:34 | C.PDOC ---
History Of Present Illness 61 year old male presents to the ER with a complaint of diarrhea for the past 2 days. Patient has a Hx of CVA in June 2017. Denies any pain, nausea, or vomiting. Time Seen by Provider: 11/21/17 19:30 Chief Complaint (Nursing): GI Problem History Per: Patient History/Exam Limitations: no limitations Onset/Duration Of Symptoms: Days Current Symptoms Are (Timing): Still Present Associated Symptoms: Diarrhea. denies: Fever, Chills, Nausea, Vomiting Exacerbating Factors: None Alleviating Factors: None Recent travel outside of the [place]: No Past Medical History Reviewed: Historical Data, Nursing Documentation, Vital Signs Vital Signs: Last Vital Signs Temp 99.7 F H 11/21/17 19:03 Pulse 77 11/21/17 19:03 Resp 20 11/21/17 19:03 BP 152/90 H 11/21/17 19:03 Pulse Ox 96 11/21/17 19:36 - Medical History PMH: Arthritis (BACK), Depression, Diabetes, HTN, Hypercholesterolemia, Seizures Surgical History: Tonsillectomy - Fluency Procedures INJECT/INFUSE ELECTROLYT (05/04/14) INJECT/INFUSE NEC (09/20/14) PSYCHIAT DRUG THERAP NEC (09/06/13) Family History: States: Unknown Family Hx, Diabetes - Social History Hx Tobacco Use: No Hx Alcohol Use: No Hx Substance Use: No - Immunization History Hx Tetanus Toxoid Vaccination: No Hx Influenza Vaccination: Yes Hx Pneumococcal Vaccination: No Review Of Systems Constitutional: Negative for: Fever, Chills Cardiovascular: Negative for: Chest Pain Respiratory: Negative for: Cough, Shortness of Breath Gastrointestinal: Positive for: Diarrhea. Negative for: Nausea, Vomiting, Abdominal Pain Neurological: Positive for: Weakness (Left sided from old CVA) Physical Exam - Physical Exam Appears: Non-toxic, No Acute Distress, Other (Alert, Talking) Skin: Normal Color, Warm, Dry Head: Atraumatic, Normacephalic Eye(s): bilateral: Normal Inspection Oral Mucosa: Moist Neck: Normal, Supple Chest: Symmetrical, No Tenderness Cardiovascular: Rhythm Regular Respiratory: Normal Breath Sounds, No Rales, No Rhonchi, No Wheezing Gastrointestinal/Abdominal: Soft, No Tenderness Neurological/Psych: Other (Left sided weakness from old CVA) ED Course And Treatment - Laboratory Results Result Diagrams: 11/21/17 19:39 11/21/17 19:39 O2 Sat by Pulse Oximetry: 96 (Room air) Pulse Ox Interpretation: Normal Progress Note: Blood work and urinalysis ordered. IV fluids administered. Disposition Discussed With : Ilda Garcia Doctor Will See Patient In The: Hospital Counseled Patient/Family Regarding: Diagnosis - Disposition Disposition: HOSPITALIZED Disposition Time: 21:42 Condition: STABLE Forms: [facility] (Dutch) - POA Present On Arrival: None - Clinical Impression Clinical Impression: Enteritis, Diarrhea, Diabetes mellitus, CVA, old, hemiparesis - Scribe Statement The provider has reviewed the documentation as recorded by the Scribe Mitchell Terrell All medical record entries made by the Scribe were at my direction and personally dictated by me. I have reviewed the chart and agree that the record accurately reflects my personal performance of the history, physical exam, medical decision making, and the department course for this patient. I have also personally directed, reviewed, and agree with the discharge instructions and disposition.
[2017-11-21] MEDS ORDERED: Sodium Chloride 0.9% 1,000 ML ONE (19:43)
[2017-11-21 19:47] LABS: BASO % 0.8 % (0.0-2.0); EOS # 0.3 K/uL (0.0-0.7); EOS % 5.2 % (0.0-4.0); HEMOGLOBIN 11.7 g/dL (12.0-18.0); LYMPH # 1.7 K/uL (1.0-4.3); LYMPH % 34.6 % (20.0-40.0); MEAN CORPUSCULAR HEMOGLOBIN 30.4 pg (27.0-31.0); MEAN CORPUSCULAR HGB CONC 34.8 g/dL (33.0-37.0); MEAN PLATELET VOLUME 7.7 fL (7.2-11.7); MONO # 0.3 K/uL (0.0-0.8); NEUT # 2.6 K/uL (1.8-7.0); NEUT % 52.4 % (50.0-75.0); NRBC % 0.1 % (0.0-2.0); RBC 3.83 Mil/uL (4.40-5.90); RED CELL DISTRIBUTION WIDTH 14.6 % (11.5-14.5)
[2017-11-21 19:48] LABS: MEAN CELL VOLUME 87.5 fL (80.0-94.0)
[2017-11-21 19:59] LABS: ALB/GLOB RATIO 1.3 (1.0-2.1); ALBUMIN 4.1 g/dL (3.5-5.0); ALT/SGPT 27 U/L (21-72); AST/SGOT 19 U/L (17-59); BLOOD UREA NITROGEN 17 mg/dL (9-20); CALCIUM 9.6 mg/dl (8.6-10.4); GFR AFRICAN-AMERICAN > 60; GFR NON-AFRICAN AMERICAN > 60; LIPASE 61 U/L (23-300)
[2017-11-21 21:39] LABS: SQUAMOUS EPITHIAL 2 /hpf (0-5); URINE BACTERIA RARE (<OCC); URINE BILIRUBIN NEGATIVE (NEGATIVE); URINE BLOOD NEGATIVE (NEGATIVE); URINE CLARITY Turbid (Clear); URINE COLOR Yellow (YELLOW); URINE GLUCOSE (UA) NORMAL (Normal); URINE LEUKOCYTE ESTERASE NEG Leu/uL (Negative); URINE NITRATE NEGATIVE (NEGATIVE); URINE PROTEIN 1+ mg/dL (NEGATIVE)
[2017-11-21] MEDS ORDERED: INSULIN GLARGINE HUM REC ANLOG 30 UNIT SC SCH (22:00)
[2017-11-21] MEDS ORDERED: LEVEMIR 30 UNIT SQ SCH (22:00)
[2017-11-21] MEDS: Sodium Chloride 0.45% 1,000 ML IV SCH (22:23)
[2017-11-21] MEDS: (Novolin R) Insulin Human Regular 100 units/ml vial SC SCH (23:36)
[2017-11-21] MEDS: Latanoprost 2.5 ml Opht Soln OU SCH (23:38)
[2017-11-22] MEDS: (Novolin R) Insulin Human Regular 100 units/ml vial SC SCH ×4 (07:55→22:28)
[2017-11-22] MEDS ORDERED: PrednisoLONE 1% Opht Susp(5 ml) OU SCH (10:00)
[2017-11-22] MEDS ORDERED: BISACODYL 5 MG PO SCH (10:00)
[2017-11-22] MEDS: Divalproex 500 mg DR Tab PO SCH ×2 (10:40→18:23)
[2017-11-22] MEDS: Multiple Vitamins Tab PO SCH (10:40)
[2017-11-22] MEDS: Enoxaparin 40 mg Syringe SC SCH (10:40)
[2017-11-22] MEDS: Sodium Chloride 0.45% 1,000 ML IV SCH ×2 (11:16→23:19)
--- NOTE | 2017-11-22 11:38 | CP.PCM.PN ---
Subjective - Date & Time of Evaluation Date of Evaluation: 11/22/17 Time of Evaluation: 10:45 - Subjective Subjective: PGY 2 Medicine Note- Dr. Garcia's service Patient seen and examined in no apparent acute distress. Patient states that he was having watery, non-bloody diarrhea over the course of two days. He states that his last bowel movement was the evening prior. He states that he consumed chicken nuggets from [employer], cold shrimp and potato chips. He lives with his and daughter. He states that his daughter consumed a similar diet without adverse side effects. Patient denies subjective fevers or chills, nausea, vomiting, abdominal pain, chest pain, hematochezia or headaches at this time. As per prior hospital records: PMHx: HTN, HLD, DM2, CVA 2017, meningioma PSHx: Craniotomy (2009) Family Hx: COPD Social Hx: denies alcohol use, tobacco use or illicit drug use Medications: Patient not aware PMD: Dr. Garcia Objective - Vital Signs/Intake and Output Vital Signs (last 24 hours): Temp Pulse Resp BP Pulse Ox 97.8 F 68 20 154/92 H 98 11/22/17 07:52 11/22/17 07:52 11/22/17 07:52 11/22/17 07:52 11/22/17 07:52 - Medications Medications: Current Medications Amlodipine Besylate (Norvasc) 10 mg PO DAILY [facility] Last Admin: 11/22/17 10:40 Dose: 10 mg Aspirin (Aspirin Chewable) 81 mg PO DAILY [facility] Last Admin: 11/22/17 10:40 Dose: 81 mg Divalproex Sodium (Depakote Dr) 500 mg PO BID [facility] Last Admin: 11/22/17 10:40 Dose: 500 mg Docusate Sodium (Colace) 100 mg PO HS [facility] Last Admin: 11/21/17 23:35 Dose: Not Given Dorzolamide HCl (Trusopt) 0 ml OU TID [facility] Enoxaparin Sodium (Lovenox) 40 mg SC DAILY [facility] Last Admin: 11/22/17 10:40 Dose: 40 mg Home Med (Bisacodyl [Correctol]) 5 mg PO DAILY [facility] Home Med (Levemir Flexpen) 30 units SQ HS [facility] Sodium Chloride (Sodium Chloride 0.45%) 1,000 mls @ 80 mls/hr IV .[id number] [facility] Last Admin: 11/22/17 11:16 Dose: 80 mls/hr Insulin Glargine (Lantus) 30 unit SC HS [facility] Insulin Human Regular (Novolin R) 0 unit SC ACHS [facility] PRN Reason: Protocol Last Admin: 11/22/17 07:55 Dose: Not Given Latanoprost (Xalatan Opht) 0 ml OU HS [facility] Last Admin: 11/21/17 23:38 Dose: Not Given Losartan Potassium (Cozaar) 100 mg PO DAILY [facility] Last Admin: 11/22/17 10:40 Dose: 100 mg Metformin HCl (Glucophage Xr) 1,000 mg PO DAILY [facility] Last Admin: 11/22/17 10:40 Dose: 1,000 mg Multivitamins (Hexavitamin) 1 tab PO DAILY [facility] Last Admin: 11/22/17 10:40 Dose: 1 tab Oxcarbazepine (Trileptal) 150 mg PO DAILY [facility] Last Admin: 11/22/17 10:40 Dose: 150 mg Pantoprazole Sodium (Protonix Inj) 40 mg IVP DAILY [facility] Last Admin: 11/22/17 10:40 Dose: 40 mg Prednisolone Acetate (Pred Forte 1% Opht Susp) 0 ml OU DAILY [facility] Rosuvastatin Calcium (Crestor) 20 mg PO HS [facility] Sertraline HCl (Zoloft) 50 mg PO DAILY [facility] Last Admin: 11/22/17 10:40 Dose: 50 mg Sitagliptin Phosphate (Januvia) 100 mg PO DAILY [facility] Last Admin: 11/22/17 10:40 Dose: 100 mg - Labs Labs: 11/21/17 19:39 11/21/17 19:39 - Constitutional Appears: Non-toxic, No Acute Distress - Head Exam Head Exam: ATRAUMATIC, NORMAL INSPECTION, NORMOCEPHALIC - Eye Exam Eye Exam: EOMI, Normal appearance, PERRL Pupil Exam: NORMAL ACCOMODATION - ENT Exam ENT Exam: Mucous Membranes Moist - Neck Exam Neck Exam: Full ROM - Respiratory Exam Respiratory Exam: NORMAL BREATHING PATTERN - Cardiovascular Exam Cardiovascular Exam: +S1, +S2 - GI/Abdominal Exam GI & Abdominal Exam: Soft, Normal Bowel Sounds - Rectal Exam Additional comments: did not perform at this time as patient did not have a private bed available where exam could be performed. - Extremities Exam Extremities Exam: Full ROM - Back Exam Back Exam: Full ROM - Neurological Exam Neurological Exam: Alert, Awake, Oriented x3 - Psychiatric Exam Psychiatric exam: Normal Affect, Normal Mood - Skin Skin Exam: Dry, Normal Color, Warm Assessment and Plan - Assessment and Plan (Free Text) Assessment: Diarrhea Liquid Diet F/U stool studies Patient with recent admission for similar course CT imaging results with PO contrast: Limited evaluation of solid organs; sludge or calculi in gallbladder History of CAD Crestor 20 mg PO HS, ASA HTN Norvasc, ASA, Cozaar 100 mg PO daily Hyperlipidemia Crestor 20 mg PO HS Hx of CVA Chronic Left sided weakness Crestor 20mg PO HS ASA 81mg PO daily Blood pressure management Diabetes ISS Metformin 1000mg PO daily Lantus 30 units SC HS Januvia 100 mg PO daily Accuchecks Prophylactic Measure Lovenox PPI 40 mg IV daily Discussed with attending. All management and planning per Dr. Garcia
[2017-11-22] MEDS: Dorzolamide 2% Opht Sol 10ml OU SCH ×3 (12:00→18:24)
[2017-11-22] MEDS ORDERED: (Novolin R) Insulin Human Regular 100 units/ml vial ONE (12:34)
[2017-11-22] MEDS: Acetaminophen 650mg/20.3ml solution UD PO PRN (20:49)
[2017-11-22] MEDS ORDERED: LEVEMIR 30 UNIT SQ SCH (22:00)
[2017-11-22] MEDS: Latanoprost 2.5 ml Opht Soln OU SCH (22:23)
[2017-11-22] MEDS: (Lantus) Insulin Glargine, Recombinant SC SCH (22:34)
[2017-11-23 00:34] VITALS: RESP 20
[2017-11-23] MEDS: Sodium Chloride 0.45% 1,000 ML IV SCH ×3 (05:06→21:32)
[2017-11-23] MEDS: (Novolin R) Insulin Human Regular 100 units/ml vial SC SCH ×4 (07:37→21:20)
[2017-11-23 07:49] LABS: BASO % 0.8 % (0.0-2.0); EOS # 0.2 K/uL (0.0-0.7); EOS % 5.2 % (0.0-4.0); HEMOGLOBIN 10.9 g/dL (12.0-18.0); LYMPH # 1.8 K/uL (1.0-4.3); LYMPH % 45.1 % (20.0-40.0); MEAN CELL VOLUME 86.5 fL (80.0-94.0); MEAN CORPUSCULAR HGB CONC 35.8 g/dL (33.0-37.0); MEAN PLATELET VOLUME 8.1 fL (7.2-11.7); MONO # 0.4 K/uL (0.0-0.8); NEUT # 1.6 K/uL (1.8-7.0); NEUT % 39.9 % (50.0-75.0); NRBC % 0.1 % (0.0-2.0); RBC 3.5 Mil/uL (4.40-5.90); RED CELL DISTRIBUTION WIDTH 14.6 % (11.5-14.5)
[2017-11-23 08:26] LABS: ALB/GLOB RATIO 1.3 (1.0-2.1); ALBUMIN 3.4 g/dL (3.5-5.0); ALT/SGPT 21 U/L (21-72); AST/SGOT 14 U/L (17-59); BLOOD UREA NITROGEN 5 mg/dL (9-20); CALCIUM 9.1 mg/dl (8.6-10.4); GFR AFRICAN-AMERICAN > 60; GFR NON-AFRICAN AMERICAN > 60; MAGNESIUM 1.3 mg/dL (1.6-2.3)
[2017-11-23] MEDS: Magnesium Sulfate 1 gm in D5W 1 GM/100 ML BAG IVPB SCH ×3 (09:32→11:22)
[2017-11-23] MEDS ORDERED: Bisacodyl 5mg EC Tab PO SCH (10:00)
[2017-11-23] MEDS: Divalproex 500 mg DR Tab PO SCH ×2 (10:45→18:09)
[2017-11-23] MEDS: Multiple Vitamins Tab PO SCH (10:45)
[2017-11-23] MEDS: PrednisoLONE 1% Opht Susp(5 ml) OU SCH (10:50)
[2017-11-23] MEDS: Dorzolamide 2% Opht Sol 10ml OU SCH ×3 (10:50→18:09)
[2017-11-23] MEDS: Enoxaparin 40 mg Syringe SC SCH (10:55)
--- NOTE | 2017-11-23 14:42 | CP.PCM.PN ---
Subjective - Date & Time of Evaluation Date of Evaluation: 11/23/17 Time of Evaluation: 07:00 - Subjective Subjective: PGY 2 Medicine Note- Dr. Garcia's service Patient seen and examined in no apparent acute distress. Patient states that he was having watery, non-bloody diarrhea over the course of two days. Last BM was this morning which was sent to the lab to sample. Patient denied all other complaints such as subjective fevers or chills, nausea, vomiting, abdominal pain , chest pain, hematochezia or headaches. Patient with with Intellectual disability and is unable to care for himself at home. Patient will need placement post discharge. Objective - Vital Signs/Intake and Output Vital Signs (last 24 hours): Temp Pulse Resp BP Pulse Ox 97.6 F 74 20 140/89 99 11/23/17 08:00 11/23/17 08:00 11/23/17 08:00 11/23/17 08:00 11/23/17 09:19 Intake and Output: 11/23/17 11/23/17 06:59 18:59 Intake Total 1780 Output Total 1600 Balance 180 - Medications Medications: Current Medications Acetaminophen (Tylenol 650mg/20.3ml Solution Ud) 650 mg PO Q4 PRN PRN Reason: Pain, moderate (4-7) Last Admin: 11/22/17 20:49 Dose: 650 mg Amlodipine Besylate (Norvasc) 10 mg PO DAILY [facility] Last Admin: 11/23/17 10:45 Dose: 10 mg Aspirin (Aspirin Chewable) 81 mg PO DAILY [facility] Last Admin: 11/23/17 10:45 Dose: 81 mg Divalproex Sodium (Depakote Dr) 500 mg PO BID [facility] Last Admin: 11/23/17 10:45 Dose: 500 mg Dorzolamide HCl (Trusopt) 0 ml OU TID [facility] Last Admin: 11/23/17 14:03 Dose: 1 drop Enoxaparin Sodium (Lovenox) 40 mg SC DAILY [facility] Last Admin: 11/23/17 10:55 Dose: 40 mg Sodium Chloride (Sodium Chloride 0.45%) 1,000 mls @ 80 mls/hr IV .[id number] [facility] Last Admin: 11/23/17 13:22 Dose: Not Given Insulin Glargine (Lantus) 30 unit SC [facility] Last Admin: 11/22/17 22:34 Dose: 30 units Insulin Human Regular (Novolin R) 0 unit SC ACHS [facility] PRN Reason: Protocol Last Admin: 11/23/17 11:46 Dose: 2 unit Latanoprost (Xalatan Opht) 0 ml OU HS [facility] Last Admin: 11/22/17 22:23 Dose: 1 ml Losartan Potassium (Cozaar) 100 mg PO DAILY [facility] Last Admin: 11/23/17 10:45 Dose: 100 mg Metformin HCl (Glucophage Xr) 1,000 mg PO DAILY [facility] Last Admin: 11/23/17 10:45 Dose: 1,000 mg Multivitamins (Hexavitamin) 1 tab PO DAILY [facility] Last Admin: 11/23/17 10:45 Dose: 1 tab Oxcarbazepine (Trileptal) 150 mg PO DAILY [facility] Last Admin: 11/23/17 10:45 Dose: 150 mg Pantoprazole Sodium (Protonix Inj) 40 mg IVP DAILY [facility] Last Admin: 11/23/17 10:45 Dose: 40 mg Prednisolone Acetate (Pred Forte 1% Opht Susp) 0 ml OU DAILY [facility] Last Admin: 11/23/17 10:50 Dose: 1 drop Rosuvastatin Calcium (Crestor) 20 mg PO HS [facility] Last Admin: 11/22/17 22:36 Dose: 20 mg Sertraline HCl (Zoloft) 50 mg PO DAILY [facility] Last Admin: 11/23/17 10:45 Dose: 50 mg Sitagliptin Phosphate (Januvia) 100 mg PO DAILY [facility] Last Admin: 11/23/17 10:52 Dose: Not Given - Labs Labs: 11/23/17 07:15 11/23/17 07:15 - Constitutional Appears: Non-toxic, No Acute Distress, Chronically Ill - Head Exam Head Exam: ATRAUMATIC, NORMAL INSPECTION - Eye Exam Eye Exam: EOMI Pupil Exam: NORMAL ACCOMODATION - ENT Exam ENT Exam: Mucous Membranes Moist - Respiratory Exam Respiratory Exam: Clear to Ausculation Bilateral, NORMAL BREATHING PATTERN. absent: Respiratory Distress - Cardiovascular Exam Cardiovascular Exam: REGULAR RHYTHM, +S1, +S2 - GI/Abdominal Exam GI & Abdominal Exam: Soft, Normal Bowel Sounds. absent: Distended, Firm, Guarding, Tenderness - Extremities Exam Extremities Exam: Normal Inspection - Back Exam Back Exam: NORMAL INSPECTION - Neurological Exam Neurological Exam: Alert, Awake, Oriented x3. absent: Normal Gait - Psychiatric Exam Psychiatric exam: Normal Affect, Normal Mood - Skin Skin Exam: Dry, Intact, Normal Color, Warm Assessment and Plan - Assessment and Plan (Free Text) Assessment: Diarrhea Liquid Diet F/U stool studies -Stool leukocytes negative - C.diff antigen negative f/u stool occult blood Patient with recent admission for similar course CT imaging results with PO contrast: Limited evaluation of solid organs; sludge or calculi in gallbladder History of CAD Crestor 20 mg PO HS, ASA HTN Norvasc, ASA, Cozaar 100 mg PO daily Hyperlipidemia Crestor 20 mg PO HS Hx of CVA Chronic Left sided weakness Crestor 20mg PO HS ASA 81mg PO daily Blood pressure management Diabetes ISS Metformin 1000mg PO daily Lantus 30 units SC HS Januvia 100 mg PO daily Accuchecks Intellectual disability Patient is an unsafe discharge and is unable to peform ADLS. He will need placement upon dischagre. Per primary the patient's caretakers ( and daughter as with ID) PT/OT eval Prophylactic Measures Lovenox PPI 40 mg IV daily Liquid Diet Discussed with attending. All management and planning per Dr. Garcia
[2017-11-23] MEDS: Acetaminophen 650mg/20.3ml solution UD PO PRN (16:28)
[2017-11-23] MEDS: Latanoprost 2.5 ml Opht Soln OU SCH (21:23)
[2017-11-23] MEDS: (Lantus) Insulin Glargine, Recombinant SC SCH (21:23)
[2017-11-24] MEDS: (Novolin R) Insulin Human Regular 100 units/ml vial SC SCH ×3 (07:37→17:24)
[2017-11-24 08:14] LABS: BASO % 0.7 % (0.0-2.0); EOS # 0.2 K/uL (0.0-0.7); EOS % 4.5 % (0.0-4.0); HEMOGLOBIN 10.7 g/dL (12.0-18.0); LYMPH # 1.7 K/uL (1.0-4.3); LYMPH % 36.4 % (20.0-40.0); MEAN CELL VOLUME 87.1 fL (80.0-94.0); MEAN CORPUSCULAR HEMOGLOBIN 30.7 pg (27.0-31.0); MEAN CORPUSCULAR HGB CONC 35.2 g/dL (33.0-37.0); MEAN PLATELET VOLUME 8.1 fL (7.2-11.7); MONO # 0.4 K/uL (0.0-0.8); MONO % 9.6 % (0.0-10.0); NEUT # 2.3 K/uL (1.8-7.0); NEUT % 48.8 % (50.0-75.0); NRBC % 0.1 % (0.0-2.0); RBC 3.48 Mil/uL (4.40-5.90); RED CELL DISTRIBUTION WIDTH 14.7 % (11.5-14.5); WHITE BLOOD COUNT 4.6 K/uL (4.8-10.8)
[2017-11-24] MEDS: Divalproex 500 mg DR Tab PO SCH ×2 (09:06→17:27)
[2017-11-24] MEDS: Multiple Vitamins Tab PO SCH (09:07)
[2017-11-24] MEDS: PrednisoLONE 1% Opht Susp(5 ml) OU SCH (09:08)
[2017-11-24] MEDS: Dorzolamide 2% Opht Sol 10ml OU SCH ×3 (09:08→17:27)
[2017-11-24] MEDS: Enoxaparin 40 mg Syringe SC SCH (09:09)
[2017-11-24] MEDS: Sodium Chloride 0.45% 1,000 ML IV SCH ×3 (09:16→13:41)
--- NOTE | 2017-11-24 10:46 | CP.PCM.PN ---
Subjective - Date & Time of Evaluation Date of Evaluation: 11/24/17 Time of Evaluation: 07:00 - Subjective Subjective: PGY 2 Medicine Note- Dr. Garcia's service Patient seen and examined in no apparent acute distress. He states that his diarrhea has resolved and he was requesting a full diet.Patient denied all other complaints such as subjective fevers or chills, nausea, vomiting, abdominal pain, chest pain, hematochezia or headaches. Patient states he would like to go home and that his daughter and take care of him at home. Objective - Vital Signs/Intake and Output Vital Signs (last 24 hours): Temp Pulse Resp BP Pulse Ox 98.5 F 80 20 144/86 96 11/24/17 08:00 11/24/17 08:00 11/24/17 08:00 11/24/17 08:00 11/24/17 08:00 Intake and Output: 11/24/17 11/24/17 06:59 18:59 Intake Total 1680 Output Total 450 Balance 1230 - Medications Medications: Current Medications Acetaminophen (Tylenol 650mg/20.3ml Solution Ud) 650 mg PO Q4 PRN PRN Reason: Pain, moderate (4-7) Last Admin: 11/23/17 16:28 Dose: 650 mg Amlodipine Besylate (Norvasc) 10 mg PO DAILY [facility] Last Admin: 11/24/17 09:07 Dose: 10 mg Aspirin (Aspirin Chewable) 81 mg PO DAILY [facility] Last Admin: 11/24/17 09:05 Dose: 81 mg Divalproex Sodium (Depakote Dr) 500 mg PO BID [facility] Last Admin: 11/24/17 09:06 Dose: 500 mg Dorzolamide HCl (Trusopt) 0 ml OU TID [facility] Last Admin: 11/24/17 09:08 Dose: 1 drop Enoxaparin Sodium (Lovenox) 40 mg SC DAILY [facility] Last Admin: 11/24/17 09:09 Dose: 40 mg Sodium Chloride (Sodium Chloride 0.45%) 1,000 mls @ 80 mls/hr IV .[id number] [facility] Last Admin: 11/24/17 09:16 Dose: 80 mls/hr Insulin Glargine (Lantus) 30 unit SC HS [facility] Last Admin: 11/23/17 21:23 Dose: 30 units Insulin Human Regular (Novolin R) 0 unit SC [facility] PRN Reason: Protocol Last Admin: 11/24/17 07:37 Dose: Not Given Latanoprost (Xalatan Opht) 0 ml OU HS [facility] Last Admin: 11/23/17 21:23 Dose: 2.5 ml Losartan Potassium (Cozaar) 100 mg PO DAILY [facility] Last Admin: 11/24/17 09:05 Dose: 100 mg Metformin HCl (Glucophage Xr) 1,000 mg PO DAILY [facility] Last Admin: 11/24/17 09:06 Dose: Not Given Multivitamins (Hexavitamin) 1 tab PO DAILY [facility] Last Admin: 11/24/17 09:07 Dose: 1 tab Oxcarbazepine (Trileptal) 150 mg PO DAILY [facility] Last Admin: 11/24/17 09:06 Dose: 150 mg Pantoprazole Sodium (Protonix Inj) 40 mg IVP DAILY [facility] Last Admin: 11/24/17 09:08 Dose: 40 mg Prednisolone Acetate (Pred Forte 1% Opht Susp) 0 ml OU DAILY [facility] Last Admin: 11/24/17 09:08 Dose: 1 drop Rosuvastatin Calcium (Crestor) 20 mg PO HS [facility] Last Admin: 11/23/17 21:23 Dose: 20 mg Sertraline HCl (Zoloft) 50 mg PO DAILY [facility] Last Admin: 11/24/17 09:07 Dose: 50 mg Sitagliptin Phosphate (Januvia) 100 mg PO DAILY [facility] Last Admin: 11/24/17 09:07 Dose: Not Given - Labs Labs: 11/24/17 07:15 11/23/17 07:15 - Constitutional Appears: Non-toxic, No Acute Distress, Chronically Ill - Head Exam Head Exam: ATRAUMATIC, NORMAL INSPECTION - Eye Exam Eye Exam: EOMI - ENT Exam ENT Exam: Mucous Membranes Moist - Respiratory Exam Respiratory Exam: Clear to Ausculation Bilateral, NORMAL BREATHING PATTERN. absent: Respiratory Distress - Cardiovascular Exam Cardiovascular Exam: REGULAR RHYTHM, +S1, +S2 - GI/Abdominal Exam GI & Abdominal Exam: Soft, Normal Bowel Sounds. absent: Distended, Firm, Guarding, Tenderness - Extremities Exam Extremities Exam: Normal Inspection, Pedal Edema. absent: Calf Tenderness - Back Exam Back Exam: NORMAL INSPECTION. absent: CVA tenderness (L), CVA tenderness (R) - Neurological Exam Neurological Exam: Alert, Awake, Oriented x3. absent: Normal Gait Neuro motor strength exam: Left Upper Extremity: 3 (arm with minor swelling, per pt chronic), Right Upper Extremity: 4, Left Lower Extremity: 3, Right Lower Extremity: 4 - Psychiatric Exam Psychiatric exam: Normal Affect, Normal Mood - Skin Skin Exam: Normal Color, Warm Assessment and Plan - Assessment and Plan (Free Text) Assessment: Diarrhea Regular diet - lactose free F/U stool studies -Stool leukocytes negative - C.diff antigen negative Patient with recent admission for similar course CT imaging results with PO contrast: Limited evaluation of solid organs; sludge or calculi in gallbladder History of CAD Crestor 20 mg PO HS, ASA HTN Norvasc, ASA, Cozaar 100 mg PO daily Hyperlipidemia Crestor 20 mg PO HS Hx of CVA Chronic Left sided weakness Crestor 20mg PO HS ASA 81mg PO daily Blood pressure management Diabetes ISS Metformin 1000mg PO daily Lantus 30 units SC HS Januvia 100 mg PO daily Accuchecks Intellectual disability Patient is an unsafe discharge and is unable to perform ADLS. Patient would like to go home with wide and daughter as caretakers. Patient has used up his rehab days per insurance. Will submit for home PT/OT for gait instability, hx CVA, and diabetic management, pending authorization PT/OT eval Prophylactic Measures Lovenox PPI 40 mg IV daily Liquid Diet Discussed with attending. All management and planning per Dr. Garcia If home PT approved:Patient is stable for discharge home. Patient is to follow up with Dr. Garcia within one week of discharge for post hospital care. Patient will be set up for home services and physical therapy/occupational therapy at home. Patient is to resume all of his home medications. No changes were made during his hospital stay. All instructions explained to the patient and he agrees.
[2017-11-24 12:05] LABS: ALB/GLOB RATIO 1.3 (1.0-2.1); ALBUMIN 3.8 g/dL (3.5-5.0); ALT/SGPT 30 U/L (21-72); AST/SGOT 22 U/L (17-59); BLOOD UREA NITROGEN 2 mg/dL (9-20); CALCIUM 9.3 mg/dl (8.6-10.4); GFR AFRICAN-AMERICAN > 60; GFR NON-AFRICAN AMERICAN > 60; MAGNESIUM 1.7 mg/dL (1.6-2.3)
[2017-11-24 15:55] VITALS: BP 119/75; PULSE 77; TEMP 98.3; O2SAT 98
[2017-11-24] MEDS ORDERED: Influenza Vaccine 60 mcg/0.5 mL SYR (4YR UP) IM ONE (16:30)
== END 2017-11-24 21:00 | disposition home or self-care (01) | DRG 392 ==
LOC: C.ER 18:27 → C.9E 21:44 → C.3T 11-22 13:13 → OBSVTOIN 11-23 14:55
PROVIDERS: ADMIT Internal Medicine Pulmonary Disease; ATTEND Internal Medicine Pulmonary Disease
DX: K52.9 Noninfective gastroenteritis and colitis, unspecified (principal); I69.354 Hemiplegia and hemiparesis following cerebral infarction affecting left non-dominant side; E11.9 Type 2 diabetes mellitus without complications; E78.5 Hyperlipidemia, unspecified; I10 Essential (primary) hypertension; J44.9 Chronic obstructive pulmonary disease, unspecified; Z79.4 Long term (current) use of insulin; Z86.011 Personal history of benign neoplasm of the brain

== ENCOUNTER 2018-01-21 11:53 | Inpatient (IN) | payer MEDICARE ==
[2018-01-21 11:53] VITALS: BMI 26.6
--- NOTE | 2018-01-21 12:32 | C.PDOC ---
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 Patient notes episode of dizziness this morning, described as spinning, associated with nausea. Denies fever, headache, vision change, chest pain, dyspnea, abdominal pain, new numbness, or weakness. Family at bedside states patient is unable to care for self at home any longer since CVA and has not been able to follow up with PMD either due to inability to walk. They state they are agreeable with transfer to Custodial care. Time Seen by Provider: 01/21/18 11:56 Chief Complaint (Nursing): Dizziness/Lightheaded Past Medical History Vital Signs: Last Vital Signs Temp 99.1 F 01/21/18 12:04 Pulse 115 H 01/21/18 12:04 Resp 16 01/21/18 12:04 BP 159/91 H 01/21/18 12:04 Pulse Ox 97 01/21/18 14:01 - Medical History PMH: Arthritis (BACK), Depression, Diabetes, HTN, Hypercholesterolemia, Seizures Denies: Chronic Kidney Disease Surgical History: Tonsillectomy - [facility] Procedures INJECT/INFUSE ELECTROLYT (05/04/14) INJECT/INFUSE NEC (09/20/14) PSYCHIAT DRUG THERAP NEC (09/06/13) Family History: States: Unknown Family Hx, Diabetes - Social History Hx Tobacco Use: No Hx Alcohol Use: No Hx Substance Use: No - Immunization History Hx Tetanus Toxoid Vaccination: No Hx Influenza Vaccination: Yes Hx Pneumococcal Vaccination: No Review Of Systems Except As Marked, All Systems Reviewed And Found Negative. Constitutional: Negative for: Fever Cardiovascular: Negative for: Chest Pain Physical Exam - Physical Exam Additional Physical Exam Comments: Gen: NAD Head: Surgical changes Eyes: L eye reactive to light ENT: MMM Neck: No midline tenderness Chest: No tenderness CV: Borderline tachycardic Lungs: CTA b/l Abd: Soft, NT Back: No midline tenderness +scoliosis Extremities: L arm contracture Skin: No rash Neuro: L sided weakness ED Course And Treatment - Laboratory Results Result Diagrams: 01/21/18 12:43 01/21/18 12:43 O2 Sat by Pulse Oximetry: 97 Medical Decision Making Medical Decision Making: Check labs, CT Head, EKG, urine, CXR for symptom of dizziness. Dr. 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 CT Head IMPRESSION: 1. Again identified is prominent encephalomalacia some of which appear cystic in appearance in the right frontal lobe most likely related to surgery. Progressive and/or worsening extensive adjacent white matter changes and or edema. Correlation with MRI may be helpful if clinically indicated. 2. Mild cerebral and cerebellar atrophy. Chronic microvascular ischemic changes. 3. Right frontal temporal craniotomy. Persistent high attenuation material just below the craniotomy flap which may be a chronic finding. 4. Intracranial arterial calcifications. 5. Persistent focal area of increased attenuation seen within the posterior soft tissues in the neck. 6. Postsurgical and/or atrophic changes of the right orbital globe. Clinical correlation. Disposition Discussed With : Ilda Garcia Doctor Will See Patient In The: Hospital - Disposition Disposition: HOSPITALIZED Disposition Time: 13:58 Condition: FAIR Forms: [facility] (Irish) - Clinical Impression Clinical Impression: Dizziness, Impaired ambulation
[2018-01-21 12:49] LABS: BASO % 0.3 % (0.0-2.0); LYMPH # 0.5 K/uL (1.0-4.3); LYMPH % 4.4 % (20.0-40.0); MEAN CELL VOLUME 88.5 fL (80.0-94.0); MEAN CORPUSCULAR HEMOGLOBIN 30.4 pg (27.0-31.0); MEAN CORPUSCULAR HGB CONC 34.4 g/dL (33.0-37.0); MEAN PLATELET VOLUME 8.1 fL (7.2-11.7); MONO # 1.2 K/uL (0.0-0.8); MONO % 10.8 % (0.0-10.0); NEUT # 9.2 K/uL (1.8-7.0); NEUT % 84.5 % (50.0-75.0); PLATELET COUNT 200 K/uL (130-400); RBC 3.62 Mil/uL (4.40-5.90); RED CELL DISTRIBUTION WIDTH 14.5 % (11.5-14.5); WHITE BLOOD COUNT 10.9 K/uL (4.8-10.8)
[2018-01-21 13:01] LABS: ALB/GLOB RATIO 1.1 (1.0-2.1); ALBUMIN 3.9 g/dL (3.5-5.0); ALT/SGPT 20 U/L (21-72); AST/SGOT 18 U/L (17-59); BLOOD UREA NITROGEN 14 mg/dL (9-20); CALCIUM 9.6 mg/dl (8.6-10.4); GFR AFRICAN-AMERICAN > 60; GFR NON-AFRICAN AMERICAN > 60
[2018-01-21 13:03] LABS: INR 1.5
[2018-01-21 13:04] LABS: PROTHROMBIN TIME 16.5 SECONDS (9.7-12.2)
[2018-01-21 13:05] LABS: BANDS 7 % (0-2); LYMPHOCYTE 4 % (20-40); MONOCYTE 7 % (0-10); NEUTROPHIL 82 % (50-75); TOTAL CELLS COUNTED 100
[2018-01-21 13:06] LABS: ANISOCYTOSIS SLIGHT; PLATELET ESTIMATE NORMAL (NORMAL)
[2018-01-21 13:41] LABS: URINE BILIRUBIN NEGATIVE (NEGATIVE); URINE BLOOD 1+ (NEGATIVE); URINE CLARITY Clear (Clear); URINE COLOR Yellow (YELLOW); URINE GLUCOSE (UA) 3+ mg/dL (Normal); URINE LEUKOCYTE ESTERASE NEG Leu/uL (Negative); URINE PROTEIN 2+ mg/dL (NEGATIVE); URINE UROBILINOGEN NORMAL mg/dL (0.2-1.0)
--- NOTE | 2018-01-21 13:53 | CT ---
PROCEDURE: CT HEAD WITHOUT CONTRAST. HISTORY: dizziness COMPARISON: CT dated 10/20/2014 TECHNIQUE: Axial computed tomography images were obtained through the head/brain without intravenous contrast. Radiation dose: Total exam DLP = 919 mGy-cm. This CT exam was performed using one or more of the following dose reduction techniques: Automated exposure control, adjustment of the mA and/or kV according to patient size, and/or use of iterative reconstruction technique. FINDINGS: HEMORRHAGE: No intracranial hemorrhage. BRAIN: Again identified is prominent encephalomalacia some of which appear cystic in appearance in the right frontal lobe most likely related to surgery. Progressive and/or worsening extensive adjacent white matter changes and or edema. Mild cerebral and cerebellar atrophy. Chronic microvascular ischemic changes. VENTRICLES: Ex vacuo dilatation of the anterior limb of the right frontal horn of the lateral ventricle with asymmetric prominence in relationship to the left. CALVARIUM: Right frontal temporal craniotomy. Persistent high attenuation material just below the craniotomy flap which may be a chronic finding. PARANASAL SINUSES: Unremarkable as visualized. No significant inflammatory changes. MASTOID AIR CELLS: Unremarkable as visualized. No inflammatory changes. OTHER FINDINGS: Intracranial arterial calcifications. Persistent focal area of increased attenuation seen within the posterior soft tissues in the neck. Postsurgical and/or atrophic changes of the right orbital globe. Clinical correlation. IMPRESSION: 1. Again identified is prominent encephalomalacia some of which appear cystic in appearance in the right frontal lobe most likely related to surgery. Progressive and/or worsening extensive adjacent white matter changes and or edema. Correlation with MRI may be helpful if clinically indicated. 2. Mild cerebral and cerebellar atrophy. Chronic microvascular ischemic changes. 3. Right frontal temporal craniotomy. Persistent high attenuation material just below the craniotomy flap which may be a chronic finding. 4. Intracranial arterial calcifications. 5. Persistent focal area of increased attenuation seen within the posterior soft tissues in the neck. 6. Postsurgical and/or atrophic changes of the right orbital globe. Clinical correlation.
[2018-01-21] MEDS ORDERED: Vancomycin 1 gm/NS 200 ml 1 GM/200 ML BAG IVPB STA (14:29)
[2018-01-21] MEDS ORDERED: Cefepime IV 1 gm in Dextrose 1 GM/50 ML BAG IVPB STA (14:29)
[2018-01-21 15:08] LABS: VENOUS BLOOD GAS BASE EXCESS -0.4 mmol/L (0.0-2.0); VENOUS BLOOD GAS PCO2 42 mmHg (40-60); VENOUS BLOOD GAS PO2 24 mm/Hg (30-55); VENOUS BLOOD PH 7.38 (7.32-7.43)
[2018-01-21] MEDS ORDERED: Sodium Chloride 0.9% 1,000 ML IV STA (15:09)
--- NOTE | 2018-01-21 15:35 | RAD ---
Chest x-ray single frontal view History: Dizziness. Comparison: 09/19/2017 Findings: Mild venous congestion. Consolidative changes in the right infrahilar region. Biapical pleural thickening with upper lobe granulomatous changes. Scattered nodular densities in the upper lung mcneal. Tortuous ectatic aorta. Top normal heart size. Degenerative changes in the spine with paravertebral osteophytes. Impression: Mild venous congestion. Consolidative changes in the right infrahilar region. Biapical pleural thickening with upper lobe granulomatous changes. Scattered nodular densities in the upper lung mcneal.
[2018-01-21] MEDS: (Novolog) Insulin Aspart, Recombinant 100 u/ml 10 ml vial SC SCH ×2 (17:30→21:30)
[2018-01-21] MEDS: Divalproex 500 mg DR Tab PO SCH (18:36)
[2018-01-21] MEDS: Dorzolamide 2% Opht Sol 10ml OU SCH (18:36)
[2018-01-21] MEDS: Latanoprost 2.5 ml Opht Soln OU SCH (21:42)
[2018-01-21] MEDS ORDERED: Insulin Detemir 100 units/ml Vial (Levemir) SC SCH (22:00)
[2018-01-22 07:58] LABS: BASO % 0.1 % (0.0-2.0); EOS % 0.1 % (0.0-4.0); HEMOGLOBIN 9.4 g/dL (12.0-18.0); LYMPH # 0.9 K/uL (1.0-4.3); LYMPH % 7.9 % (20.0-40.0); MEAN CELL VOLUME 87.8 fL (80.0-94.0); MEAN CORPUSCULAR HEMOGLOBIN 30.8 pg (27.0-31.0); MEAN PLATELET VOLUME 8.3 fL (7.2-11.7); MONO # 1.1 K/uL (0.0-0.8); MONO % 9.7 % (0.0-10.0); NEUT % 82.2 % (50.0-75.0); PLATELET COUNT 155 K/uL (130-400); RBC 3.07 Mil/uL (4.40-5.90); RED CELL DISTRIBUTION WIDTH 13.8 % (11.5-14.5); WHITE BLOOD COUNT 10.9 K/uL (4.8-10.8)
[2018-01-22 08:13] LABS: ALBUMIN 3.1 g/dL (3.5-5.0); ALT/SGPT 24 U/L (21-72); AST/SGOT 23 U/L (17-59); BLOOD UREA NITROGEN 22 mg/dL (9-20); CALCIUM 8.4 mg/dl (8.6-10.4); GFR AFRICAN-AMERICAN > 60; GFR NON-AFRICAN AMERICAN > 60
[2018-01-22] MEDS: (Novolog) Insulin Aspart, Recombinant 100 u/ml 10 ml vial SC SCH ×4 (08:30→21:51)
[2018-01-22 09:19] LABS: BANDS 9 % (0-2); LYMPHOCYTE 5 % (20-40); MONOCYTE 9 % (0-10); NEUTROPHIL 77 % (50-75); PLATELET ESTIMATE NORMAL (NORMAL); TOTAL CELLS COUNTED 100
[2018-01-22 09:20] LABS: ANISOCYTOSIS SLIGHT; HYPOCHROMIC SLIGHT; LARGE PLATELETS PRESENT; PLATELET CLUMPS PRESENT; POLYCHROMIC SLIGHT; TOXIC GRANULATION PRESENT
--- NOTE | 2018-01-22 10:37 | CP.PCM.CON ---
History of Present Illness - History of Present Illness History of Present Illness: Reason for consultation: lung infiltrate and cough 62-year-old malewith history of brain tumor status post resection, CVA with left -sided weakness was brought in for dizziness. Patient also complaining of dry cough. patient febrile AND HYPOXIC WITH SATURATION IN THE MID 90 and tmax 101. Chest x-ray done consistent with a right infrahilar infiltrate. 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 - RENAL Hx Chronic Kidney Disease: No - ENDOCRINE/METABOLIC Hx Diabetes Mellitus Type 2: Yes - HEMATOLOGICAL/ONCOLOGICAL Hx Blood Disorders: No - INTEGUMENTARY Hx Dermatological Problems: No - MUSCULOSKELETAL/RHEUMATOLOGICAL Hx Falls: No - GASTROINTESTINAL Hx Gastrointestinal Disorders: No Other/Comment: Incontinet of stool - GENITOURINARY/GYNECOLOGICAL Hx Genitourinary Disorders: No Hx Incontinence: Yes Other/Comment: Incontinent of urine. - PSYCHIATRIC Hx Depression: Yes Hx Substance Use: No - SURGICAL HISTORY Hx Tonsillectomy: Yes - ANESTHESIA Hx Anesthesia: Yes Hx Anesthesia Reactions: Yes (vomiting) Hx Malignant Hyperthermia: No Meds Allergies/Adverse Reactions: Allergies Allergy/AdvReac Type Severity Reaction Status Date / Time No Known Allergies Allergy Verified 11/21/17 19:02 - Medications Medications: Current Medications Acetaminophen (Tylenol 325mg Tab) 650 mg PO Q6 PRN PRN Reason: Fever >100.4 F Last Admin: 01/21/18 22:04 Dose: 650 mg Amlodipine Besylate (Norvasc) 10 mg PO DAILY [facility] Aspirin (Aspirin Chewable) 81 mg PO DAILY [facility] Bisacodyl (Dulcolax) 5 mg PO DAILY [facility] Divalproex Sodium (Depakote Dr) 500 mg PO BID [facility] Last Admin: 01/21/18 18:36 Dose: 500 mg Docusate Sodium (Colace) 100 mg PO HS [facility] Last Admin: 01/21/18 21:42 Dose: 100 mg Dorzolamide HCl (Trusopt) 0 ml OU TID [facility] Last Admin: 01/21/18 18:36 Dose: 1 drop Enoxaparin Sodium (Lovenox) 40 mg SC DAILY [facility] Cefepime HCl 1 gm/ Dextrose 50 mls @ 100 mls/hr IVPB Q12H [facility] PRN Reason: Protocol Sodium Chloride (Sodium Chloride 0.45%) 1,000 mls @ 125 mls/hr IV .Q8H [facility] Insulin Aspart (Novolog) 0 unit SC ACHS [facility] PRN Reason: Protocol Last Admin: 01/22/18 08:30 Dose: 3 unit Insulin Detemir (Levemir) 35 unit SC HS [facility] Latanoprost (Xalatan Opht) 0 ml OU HS [facility] Last Admin: 01/21/18 21:42 Dose: 2.5 ml Losartan Potassium (Cozaar) 100 mg PO DAILY [facility] Metformin HCl (Glucophage Xr) 1,000 mg PO DAILY [facility] Multivitamins (Hexavitamin) 1 tab PO DAILY [facility] Oxcarbazepine (Trileptal) 150 mg PO DAILY [facility] Rosuvastatin Calcium (Crestor) 20 mg PO [facility] Last Admin: 01/21/18 21:41 Dose: 20 mg Sertraline HCl (Zoloft) 50 mg PO DAILY [facility] Sitagliptin Phosphate (Januvia) 100 mg PO DAILY [facility] Physical Exam - Head Exam Head Exam: ATRAUMATIC, NORMOCEPHALIC - ENT Exam ENT Exam: Mucous Membranes Dry - Neck Exam Neck exam: Positive for: Normal Inspection - Respiratory Exam Respiratory Exam: Clear to Auscultation Bilateral - Cardiovascular Exam Cardiovascular Exam: REGULAR RHYTHM - GI/Abdominal Exam GI & Abdominal Exam: Normal Bowel Sounds, Soft - Neurological Exam Neurological exam: Alert Results - Vital Signs Recent Vital Signs: Last Vital Signs Temp 99.5 F 01/22/18 08:28 Pulse 104 H 01/22/18 08:28 Resp 20 01/22/18 08:28 BP 146/82 01/22/18 08:28 Pulse Ox 94 L 01/22/18 08:28 - Labs Result Diagrams: 01/22/18 07:40 01/22/18 07:40 Labs: Laboratory Results - last 24 hr 04/07/18 04/07/18 04/07/18 12:24 12:43 12:43 WBC 10.9 H D RBC 3.62 L Hgb 11.0 L Hct 32.0 L MCV 88.5 MCH 30.4 MCHC 34.4 RDW 14.5 Plt Count 200 MPV 8.1 Neut % (Auto) 84.5 H Lymph % (Auto) 4.4 L Deuel % (Auto) 10.8 H Eos % (Auto) 0.0 Baso % (Auto) 0.3 Neut # (Auto) 9.2 H Lymph # (Auto) 0.5 L Deuel # (Auto) 1.2 H Eos # (Auto) 0.0 Baso # (Auto) 0.0 Neutrophils % (Manual) 82 H Band Neutrophils % 7 H Lymphocytes % (Manual) 4 L Monocytes % (Manual) 7 Toxic Granulation Platelet Estimate Normal Plt Clumps, EDTA Large Platelets Polychromasia Hypochromasia (manual) Anisocytosis (manual) Slight PT 16.5 H INR 1.5 APTT 30 pO2 VBG pH VBG pCO2 VBG HCO3 VBG Total CO2 VBG O2 Sat (Calc) VBG Base Excess VBG Potassium Glucose Lactate Crit Value Called To Crit Value Called By Crit Value Read Back Blood Gas Notified Time Sodium Potassium Chloride Carbon Dioxide Anion Gap BUN Creatinine Est GFR ( Amer) Est GFR (Non-Af Amer) POC Glucose (mg/dL) 338 H Random Glucose Calcium Total Bilirubin AST ALT Alkaline Phosphatase Troponin I Total Protein Albumin Globulin Albumin/Globulin Ratio Venous Blood Potassium Urine Color Urine Clarity Urine pH Ur Specific Hawkins Urine Protein Urine Glucose (UA) Urine Ketones Urine Blood Urine Nitrate Urine Bilirubin Urine Urobilinogen Ur Leukocyte Esterase Urine WBC (Auto) Urine RBC (Auto) 01/21/18 01/21/18 01/21/18 12:43 13:26 15:02 WBC RBC Hgb Hct MCV MCH MCHC RDW Plt Count MPV Neut % (Auto) Lymph % (Auto) Deuel % (Auto) Eos % (Auto) Baso % (Auto) Neut # (Auto) Lymph # (Auto) Deuel # (Auto) Eos # (Auto) Baso # (Auto) Neutrophils % (Manual) Band Neutrophils % Lymphocytes % (Manual) Monocytes % (Manual) Toxic Granulation Platelet Estimate Plt Clumps, EDTA Large Platelets Polychromasia Hypochromasia (manual) Anisocytosis (manual) PT INR APTT pO2 24 L VBG pH 7.38 VBG pCO2 42 VBG HCO3 23.1 VBG Total CO2 26.1 VBG O2 Sat (Calc) 51.1 VBG Base Excess -0.4 L VBG Potassium 4.0 Glucose 431 H* Lactate 5.9 H* Crit Value Called To Dr [email or web address] Crit Value Called By Maria Luisa paredes ballistics professor Crit Value Read Back Y Blood Gas Notified Time 1508 Sodium 143 139.0 Potassium 4.1 Chloride 100 101.0 Carbon Dioxide 26 Anion Gap 21 H BUN 14 Creatinine 0.7 L Est GFR ( Amer) > 60 Est GFR (Non-Af Amer) > 60 POC Glucose (mg/dL) Random Glucose 380 H Calcium 9.6 Total Bilirubin 0.8 AST 18 ALT 20 L D Alkaline Phosphatase 67 Troponin I < 0.0120 Total Protein 7.4 Albumin 3.9 Globulin 3.5 Albumin/Globulin Ratio 1.1 Venous Blood Potassium 4.0 Urine Color Yellow Urine Clarity Clear Urine pH 5.0 Ur Specific Hawkins 1.030 Urine Protein 2+ H Urine Glucose (UA) 3+ H Urine Ketones 1+ H Urine Blood 1+ H Urine Nitrate Negative Urine Bilirubin Negative Urine Urobilinogen Normal Ur Leukocyte Esterase Neg Urine WBC (Auto) 3 Urine RBC (Auto) 12 H 01/21/18 01/21/18 01/22/18 16:16 21:00 06:59 WBC RBC Hgb Hct MCV MCH MCHC RDW Plt Count MPV Neut % (Auto) Lymph % (Auto) Deuel % (Auto) Eos % (Auto) Baso % (Auto) Neut # (Auto) Lymph # (Auto) Deuel # (Auto) Eos # (Auto) Baso # (Auto) Neutrophils % (Manual) Band Neutrophils % Lymphocytes % (Manual) Monocytes % (Manual) Toxic Granulation Platelet Estimate Plt Clumps, EDTA Large Platelets Polychromasia Hypochromasia (manual) Anisocytosis (manual) PT INR APTT pO2 VBG pH VBG pCO2 VBG HCO3 VBG Total CO2 VBG O2 Sat (Calc) VBG Base Excess VBG Potassium Glucose Lactate Crit Value Called To Crit Value Called By Crit Value Read Back Blood Gas Notified Time Sodium Potassium Chloride Carbon Dioxide Anion Gap BUN Creatinine Est GFR ( Amer) Est GFR (Non-Af Amer) POC Glucose (mg/dL) 375 H 267 H 278 H Random Glucose Calcium Total Bilirubin AST ALT Alkaline Phosphatase Troponin I Total Protein Albumin Globulin Albumin/Globulin Ratio Venous Blood Potassium Urine Color Urine Clarity Urine pH Ur Specific Hawkins Urine Protein Urine Glucose (UA) Urine Ketones Urine Blood Urine Nitrate Urine Bilirubin Urine Urobilinogen Ur Leukocyte Esterase Urine WBC (Auto) Urine RBC (Auto) 01/22/18 01/22/18 07:40 07:40 WBC 10.9 H RBC 3.07 L Hgb 9.4 L Hct 27.0 L MCV 87.8 MCH 30.8 MCHC 35.0 RDW 13.8 Plt Count 155 MPV 8.3 Neut % (Auto) 82.2 H Lymph % (Auto) 7.9 L Deuel % (Auto) 9.7 Eos % (Auto) 0.1 Baso % (Auto) 0.1 Neut # (Auto) 9.0 H Lymph # (Auto) 0.9 L Deuel # (Auto) 1.1 H Eos # (Auto) 0.0 Baso # (Auto) 0.0 Neutrophils % (Manual) 77 H Band Neutrophils % 9 H Lymphocytes % (Manual) 5 L Monocytes % (Manual) 9 Toxic Granulation Present Platelet Estimate Normal Plt Clumps, EDTA Present Large Platelets Present Polychromasia Slight Hypochromasia (manual) Slight Anisocytosis (manual) Slight PT INR APTT pO2 VBG pH VBG pCO2 VBG HCO3 VBG Total CO2 VBG O2 Sat (Calc) VBG Base Excess VBG Potassium Glucose Lactate Crit Value Called To Crit Value Called By Crit Value Read Back Blood Gas Notified Time Sodium 134 Potassium 3.7 Chloride 97 L Carbon Dioxide 24 Anion Gap 16 BUN 22 H Creatinine 0.6 L Est GFR ( Amer) > 60 Est GFR (Non-Af Amer) > 60 POC Glucose (mg/dL) Random Glucose 269 H Calcium 8.4 L Total Bilirubin 0.7 AST 23 ALT 24 Alkaline Phosphatase 51 Troponin I Total Protein 6.0 L Albumin 3.1 L D Globulin 3.0 Albumin/Globulin Ratio 1.0 Venous Blood Potassium Urine Color Urine Clarity Urine pH Ur Specific Hawkins Urine Protein Urine Glucose (UA) Urine Ketones Urine Blood Urine Nitrate Urine Bilirubin Urine Urobilinogen Ur Leukocyte Esterase Urine WBC (Auto) Urine RBC (Auto) Assessment & Plan (1) Pneumonia Status: Acute Comment: right infrahilar infiltrate. Continue antibiotics. Check pro calcitonin level. Legionella mycoplasma titre. Start IV fluids. Monitor lactate level (2) Dizziness Status: Acute (3) CVA, old, hemiparesis Status: Acute
[2018-01-22] MEDS: Multiple Vitamins Tab PO SCH (11:00)
[2018-01-22] MEDS: Dorzolamide 2% Opht Sol 10ml OU SCH ×3 (11:00→18:24)
[2018-01-22] MEDS: Enoxaparin 40 mg Syringe SC SCH (11:00)
[2018-01-22] MEDS: Divalproex 500 mg DR Tab PO SCH ×2 (11:00→18:24)
[2018-01-22] MEDS: Bisacodyl 5mg EC Tab PO SCH (11:00)
[2018-01-22] MEDS: Sodium Chloride 0.45% 1,000 ML IV SCH ×2 (11:13→18:41)
[2018-01-22] MEDS ORDERED: (Novolin R) Insulin Human Regular 100 units/ml vial SC SCH (11:30)
--- NOTE | 2018-01-22 15:29 | CP.PCM.CON ---
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 Patient notes episode of dizziness this morning, described as spinning, associated with nausea. Denies fever, headache, vision change, chest pain, dyspnea, abdominal pain, new numbness, or weakness. Family at bedside states patient is unable to care for self at home any longer since CVA admitted for pneumonia r/o sepsis Dr Enriquez on board IV rx ordered - Medical History PMH: Arthritis (BACK), Depression, Diabetes, HTN, Hypercholesterolemia, Seizures Denies: Chronic Kidney Disease Surgical History: Tonsillectomy - [facility] Procedures INJECT/INFUSE ELECTROLYT (05/04/14) INJECT/INFUSE NEC (09/20/14) PSYCHIAT DRUG THERAP NEC (09/06/13) Review of Systems - Review of Systems All systems: reviewed and no additional remarkable complaints except - Constitutional Constitutional: As Per HPI - EENT Eyes: absent: As Per HPI, Blind Spots, Blurred Vision, Change in Vision, Decreased Night Vision, Diplopia, Discharge, Dry Eye, Exophthalmos, Floaters, Irritation, Itchy Eyes, Loss of Peripheral Vision, Pain, Photophobia, Requires Corrective Lenses, Sees Flashes, Spots in Vision, Tunnel Vision, Other Visual Disturbances, Loss of Vision, Other Ears: absent: As Per HPI, Decreased Hearing, Ear Discharge, Ear Pain, Tinnitus, Abnormal Hearing, Disequilibrium, Dizziness, Other Nose/Mouth/Throat: absent: As Per HPI, Epistaxis, Nasal Congestion, Nasal Discharge, Nasal Obstruction, Nasal Trauma, Nose Pain, Post Nasal Drip, Sinus Pain, Sinus Pressure, Bleeding Gums, Change in Voice, Dental Pain, Dry Mouth, Dysphagia, Halitosis, Hoarsness, Lip Swelling, Mouth Lesions, Mouth Pain, Odynophagia, Sore Throat, Throat Swelling, Tongue Swelling, Facial Pain, Neck Pain, Neck Mass, Other - Cardiovascular Cardiovascular: As Per HPI - Respiratory Respiratory: As Per HPI, Cough, Dyspnea - Gastrointestinal Gastrointestinal: Diarrhea - Genitourinary Genitourinary: absent: As Per HPI, Change in Urinary Stream, Difficulty Urinating, Dysuria, Flank Pain, Hematuria, Pyuria, Nocturia, Urinary Incontinence, Urinary Frequency, Urinary Hesitance, Urinary Urgency, Voiding Freq/Small Amts, Freq UTI, Hx Renal/Bladder Calculi, Hx /Renal Surgery, Bladder Distension, Other - Musculoskeletal Musculoskeletal: absent: As Per HPI, Abnormal Gait, Arthralgias, Atrophy, Back Pain, Deformity, Joint Swelling, Limited Range of Motion, Loss of Height, Muscle Cramps, Muscle Weakness, Myalgias, Neck Pain, Numbness, Radiating Pain into Limb, Stiffness, Tingling, Other - Integumentary Integumentary: absent: As Per HPI, Acne, Alopecia, Bleeding Lesions, Change in Hair, Change in Nails, Change in Pigmentation, Changing Lesions, Dry Skin, Erythema, Furuncle, Hirsutism, Lesions, New Lesions, Non-Healing Lesions, Photosensitivity, Pruritus, Rash, Skin Pain, Skin Ulcer, Sores, Striae, Swelling , Unusual Bruising, Wounds, Jaundice, Other - Neurological Neurological: absent: As Per HPI, Abnormal Gait, Abnormal Hearing, Abnormal Movements, Abnormal Speech, Behavioral Changes, Burning Sensations, Confusion, Convulsions, Disequilibrium, Dizziness, Numbness, Focal Weakness, Frequent Falls , Headaches, Lack of Coordination, Loss of Vision, Memory Loss, Paresthesias, Radicular Pain, Restless Legs, Sensory Deficit, Syncope, Tingling, Tremor, Vertigo, Weakness, Other Visual Disturbances, Other - Psychiatric Psychiatric: absent: As Per HPI, Abnormal Sleep Pattern, Anhedonia, Anxiety, Auditory Hallucinations, Behavioral Changes, Change in Appetite, Change in Libido, Confusion, Depression, Difficulty Concentrating, Hallucinations, Homicidal Ideation, Hopelessness, Irritability, Memory Loss, Mood Swings, Panic Attacks, Paranoia, Suicidal Ideation, Visual Hallucinations, Tactile Hallucinations, Other - Endocrine Endocrine: absent: As Per HPI, Change in Body Appearance, Change in Libido, Cold Intolorance, Deepening of Voice, Excessive Sweating, Fatigue, Flushing, Heat Intolorance, Increase in Ring/Shoe/Hat Size, Palpitations, Polydipsia, Polyphagia, Polyuria, Other - Hematologic/Lymphatic Hematologic: absent: As Per HPI, Easy Bleeding, Easy Bruising, Lymphadenopathy, Other Past Patient History - Infectious Disease Hx of Infectious Diseases: None - Tetanus Immunizations Tetanus Immunization: Unknown - Past Medical History & Family History Past Medical History?: Yes - Past Social History Smoking Status: Never Smoked - CARDIAC Hx Hypercholesterolemia: Yes Hx Hypertension: Yes - PULMONARY Hx Respiratory Disorders: No - NEUROLOGICAL Hx Seizures: Yes - HEENT Hx HEENT Problems: Yes Hx Blind: Yes (right eye) Other/Comment: 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 - RENAL Hx Chronic Kidney Disease: No - ENDOCRINE/METABOLIC Hx Diabetes Mellitus Type 2: Yes - HEMATOLOGICAL/ONCOLOGICAL Hx Blood Disorders: No - INTEGUMENTARY Hx Dermatological Problems: No - MUSCULOSKELETAL/RHEUMATOLOGICAL Hx Falls: No - GASTROINTESTINAL Hx Gastrointestinal Disorders: No Other/Comment: Incontinet of stool - GENITOURINARY/GYNECOLOGICAL Hx Genitourinary Disorders: No Hx Incontinence: Yes Other/Comment: Incontinent of urine. - PSYCHIATRIC Hx Depression: Yes Hx Substance Use: No - SURGICAL HISTORY Hx Tonsillectomy: Yes - ANESTHESIA Hx Anesthesia: Yes Hx Anesthesia Reactions: Yes (vomiting) Hx Malignant Hyperthermia: No Meds Allergies/Adverse Reactions: Allergies Allergy/AdvReac Type Severity Reaction Status Date / Time No Known Allergies Allergy Verified 11/21/17 19:02 - Medications Medications: Current Medications Acetaminophen (Tylenol 325mg Tab) 650 mg PO Q6 PRN PRN Reason: Fever >100.4 F Last Admin: 01/21/18 22:04 Dose: 650 mg Amlodipine Besylate (Norvasc) 10 mg PO DAILY [facility] Last Admin: 01/22/18 11:00 Dose: 10 mg Aspirin (Aspirin Chewable) 81 mg PO DAILY [facility] Last Admin: 01/22/18 11:00 Dose: 81 mg Bisacodyl (Dulcolax) 5 mg PO DAILY [facility] Last Admin: 01/22/18 11:00 Dose: 5 mg Divalproex Sodium (Depakote Dr) 500 mg PO BID [facility] Last Admin: 01/22/18 11:00 Dose: 500 mg Docusate Sodium (Colace) 100 mg PO HS [facility] Last Admin: 01/21/18 21:42 Dose: 100 mg Dorzolamide HCl (Trusopt) 0 ml OU TID [facility] Last Admin: 01/22/18 11:00 Dose: 1 drop Enoxaparin Sodium (Lovenox) 40 mg SC DAILY [facility] Last Admin: 01/22/18 11:00 Dose: 40 mg Sodium Chloride (Sodium Chloride 0.45%) 1,000 mls @ 125 mls/hr IV .Q8H [facility] Last Admin: 01/22/18 11:13 Dose: 125 mls/hr Cefepime HCl 1 gm/ Dextrose 50 mls @ 100 mls/hr IVPB Q12H [facility] PRN Reason: Protocol Insulin Aspart (Novolog) 0 unit SC [facility] PRN Reason: Protocol Last Admin: 01/22/18 12:17 Dose: 3 unit Insulin Detemir (Levemir) 35 unit SC [facility] Latanoprost (Xalatan Opht) 0 ml OU HS [facility] Last Admin: 01/21/18 21:42 Dose: 2.5 ml Losartan Potassium (Cozaar) 100 mg PO DAILY [facility] Last Admin: 01/22/18 11:00 Dose: 100 mg Metformin HCl (Glucophage Xr) 1,000 mg PO DAILY [facility] Last Admin: 01/22/18 11:00 Dose: 1,000 mg Multivitamins (Hexavitamin) 1 tab PO DAILY [facility] Last Admin: 01/22/18 11:00 Dose: 1 tab Oxcarbazepine (Trileptal) 150 mg PO DAILY [facility] Last Admin: 01/22/18 11:00 Dose: 150 mg Rosuvastatin Calcium (Crestor) 20 mg PO HS [facility] Last Admin: 01/21/18 21:41 Dose: 20 mg Sertraline HCl (Zoloft) 50 mg PO DAILY [facility] Last Admin: 01/22/18 11:00 Dose: 50 mg Sitagliptin Phosphate (Januvia) 100 mg PO DAILY [facility] Last Admin: 01/22/18 11:00 Dose: 100 mg Physical Exam - Constitutional Appears: Non-toxic, Chronically Ill - Head Exam Head Exam: ATRAUMATIC. absent: NORMAL INSPECTION, NORMOCEPHALIC Additional comments: RIGHT FRONTOPARIETAL DEFECT - Eye Exam Eye Exam: EOMI. absent: Scleral icterus Pupil Exam: NORMAL ACCOMODATION - ENT Exam ENT Exam: Mucous Membranes Dry - Neck Exam Neck exam: Negative for: Lymphadenopathy - Respiratory Exam Respiratory Exam: Decreased Breath Sounds, Rhonchi - Cardiovascular Exam Cardiovascular Exam: REGULAR RHYTHM, +S1, +S2 - GI/Abdominal Exam GI & Abdominal Exam: Diminished Bowel Sounds, Soft. absent: Tenderness - Rectal Exam Rectal Exam: Deferred - Exam Exam: NORMAL INSPECTION - Extremities Exam Extremities exam: Positive for: pedal pulses present. Negative for: calf tenderness, pedal edema, tenderness - Back Exam Back exam: absent: CVA tenderness (L), CVA tenderness (R), paraspinal tenderness - Neurological Exam Neurological exam: Alert, CN II-XII Intact, Oriented x3 Additional comments: left sided weAK - Psychiatric Exam Psychiatric exam: Anxious - Skin Skin Exam: Dry Results - Vital Signs Recent Vital Signs: Last Vital Signs Temp 99.5 F 01/22/18 08:28 Pulse 104 H 01/22/18 08:28 Resp 20 01/22/18 08:28 BP 146/82 01/22/18 08:28 Pulse Ox 94 L 01/22/18 08:28 - Labs Result Diagrams: 01/22/18 07:40 01/22/18 07:40 Labs: Laboratory Results - last 24 hr 01/21/18 01/21/18 01/22/18 16:16 21:00 06:59 WBC RBC Hgb Hct MCV MCH MCHC RDW Plt Count MPV Neut % (Auto) Lymph % (Auto) Baldwin % (Auto) Eos % (Auto) Baso % (Auto) Neut # (Auto) Lymph # (Auto) Baldwin # (Auto) Eos # (Auto) Baso # (Auto) Neutrophils % (Manual) Band Neutrophils % Lymphocytes % (Manual) Monocytes % (Manual) Toxic Granulation Platelet Estimate Plt Clumps, EDTA Large Platelets Polychromasia Hypochromasia (manual) Anisocytosis (manual) Sodium Potassium Chloride Carbon Dioxide Anion Gap BUN Creatinine Est GFR ( Amer) Est GFR (Non-Af Amer) POC Glucose (mg/dL) 375 H 267 H 278 H Random Glucose Lactic Acid Calcium Total Bilirubin AST ALT Alkaline Phosphatase Total Protein Albumin Globulin Albumin/Globulin Ratio 01/22/18 01/22/18 01/22/18 07:40 07:40 11:30 WBC 10.9 H RBC 3.07 L Hgb 9.4 L Hct 27.0 L MCV 87.8 MCH 30.8 MCHC 35.0 RDW 13.8 Plt Count 155 MPV 8.3 Neut % (Auto) 82.2 H Lymph % (Auto) 7.9 L Baldwin % (Auto) 9.7 Eos % (Auto) 0.1 Baso % (Auto) 0.1 Neut # (Auto) 9.0 H Lymph # (Auto) 0.9 L Baldwin # (Auto) 1.1 H Eos # (Auto) 0.0 Baso # (Auto) 0.0 Neutrophils % (Manual) 77 H Band Neutrophils % 9 H Lymphocytes % (Manual) 5 L Monocytes % (Manual) 9 Toxic Granulation Present Platelet Estimate Normal Plt Clumps, EDTA Present Large Platelets Present Polychromasia Slight Hypochromasia (manual) Slight Anisocytosis (manual) Slight Sodium 134 Potassium 3.7 Chloride 97 L Carbon Dioxide 24 Anion Gap 16 BUN 22 H Creatinine 0.6 L Est GFR ( Amer) > 60 Est GFR (Non-Af Amer) > 60 POC Glucose (mg/dL) Random Glucose 269 H Lactic Acid 2.2 H Calcium 8.4 L Total Bilirubin 0.7 AST 23 ALT 24 Alkaline Phosphatase 51 Total Protein 6.0 L Albumin 3.1 L D Globulin 3.0 Albumin/Globulin Ratio 1.0 01/22/18 11:50 WBC RBC Hgb Hct MCV MCH MCHC RDW Plt Count MPV Neut % (Auto) Lymph % (Auto) Baldwin % (Auto) Eos % (Auto) Baso % (Auto) Neut # (Auto) Lymph # (Auto) Baldwin # (Auto) Eos # (Auto) Baso # (Auto) Neutrophils % (Manual) Band Neutrophils % Lymphocytes % (Manual) Monocytes % (Manual) Toxic Granulation Platelet Estimate Plt Clumps, EDTA Large Platelets Polychromasia Hypochromasia (manual) Anisocytosis (manual) Sodium Potassium Chloride Carbon Dioxide Anion Gap BUN Creatinine Est GFR ( Amer) Est GFR (Non-Af Amer) POC Glucose (mg/dL) 298 H Random Glucose Lactic Acid Calcium Total Bilirubin AST ALT Alkaline Phosphatase Total Protein Albumin Globulin Albumin/Globulin Ratio Assessment & Plan (1) Dizziness Status: Acute (2) Impaired ambulation Status: Acute (3) Pneumonia Status: Acute (4) CVA, old, hemiparesis Status: Acute (5) Dehydration Status: Acute (6) Diabetes mellitus Status: Acute - Assessment and Plan (Free Text) Assessment: AWAIT CULTURES CONT IV RX PER DR ENRIQUEZ
[2018-01-22 17:05] LABS: MYCOPLASMA PNEUMONIAE IGM NEGATIVE (NEGATIVE)
[2018-01-22] MEDS: Latanoprost 2.5 ml Opht Soln OU SCH (21:36)
[2018-01-22] MEDS: Insulin Detemir 100 units/ml Vial (Levemir) SC SCH (21:51)
[2018-01-23] MEDS: Sodium Chloride 0.45% 1,000 ML IV SCH ×3 (02:47→11:48)
--- NOTE | 2018-01-23 05:26 | HP ---
HISTORY OF PRESENT ILLNESS: I know him for a few months now. I started doing house calls on him since he could not get out of this hospital bed at home and he is now brought to [facility]. He had nausea, dizziness, and spinning of his head; not feeling well. He has a past medical history of left-sided deficit from the brain tumor, status post resection, inability to walk since a CVA in 2017. He is feeling very dizzy, left-sided weakness which is chronic, the dizziness is new. He is pleasant. PAST MEDICAL HISTORY: On medical history, he has got arthritis, depression, diabetes, hypertension, high cholesterol, seizures. He had a tonsillectomy in the past. He has had electrolyte abnormalities, psychiatric therapy in the past. FAMILY HISTORY: He has diabetes in the family. SOCIAL HISTORY: He does not smoke or drink or do drugs. He is very busy. REVIEW OF SYSTEMS: His vision is okay. He feels nauseous. No cough, and the chest has some congestion. Abdomen is soft. Abdomen has no pain. He has left-sided weakness with contractures secondary to CVA. PHYSICAL EXAMINATION: VITAL SIGNS: He has 99.1 temperature, 115 pulse, 16 respiratory rate, 159/91 blood pressure, 97% O2 saturation on room air. GENERAL: He is in no acute distress. Now in the hospital bed. HEENT: His head has surgical changes. Throat is moist. HEART: Regular rate. LUNGS: Decreased breath sounds. Mild congestion but clear. ABDOMEN: Soft. EXTREMITIES: He has left sided contractures. No edema. No scoliosis. No rashes appreciated. [employer]: He is alert, mildly confused. LABORATORY DATA: He has 10.9 white count, 11 hemoglobin, 32 hematocrit, and 200 platelets. 1.5 INR. His lactate is 5. 9, very high. He has 134 sodium, potassium 3.7, BUN 22, creatinine 0.6. Blood sugar is 375, also 265, also 278 and 269 blood sugars. His GFR is greater than 60. His calcium is 8.4, total bilirubin is 0.7, AST is 23, ALT is 24, alk phos is 51. His urine is for the most okay. He had a chest x-ray which showed mild venous congestion, consolidative changes in the right infrahilar region. Bilateral pleural thickening with upper lobe granulomatous changes, scattered nodules in his upper lungs. He had a CAT of the head, which is showing again encephalomalacia, cystic, right frontal lobe, related to surgery, mild cerebral and cerebellar atrophy. He had a temporal craniotomy with surgical changes in the right lobe of the globe. He is having an infection with an elevated lactate, changes in his lungs, dizziness. We will have a consult with Neurology, Infectious Disease, and Pulmonary. He is already on metformin, Januvia, and Levemir, and I put him on insulin coverage. I am going to increase his Levemir at nighttime to 35. Continue with the IV antibiotics. He is here for dizziness, elevated lactate, lung changes, probable infection with blood cultures. Gilmar Valentino DO MTDD
[2018-01-23 07:26] LABS: BASO % 0.3 % (0.0-2.0); EOS # 0.1 K/uL (0.0-0.7); EOS % 0.9 % (0.0-4.0); HEMOGLOBIN 9.3 g/dL (12.0-18.0); LYMPH # 1.1 K/uL (1.0-4.3); LYMPH % 12.8 % (20.0-40.0); MEAN CELL VOLUME 87.4 fL (80.0-94.0); MEAN CORPUSCULAR HEMOGLOBIN 31.2 pg (27.0-31.0); MEAN CORPUSCULAR HGB CONC 35.7 g/dL (33.0-37.0); MEAN PLATELET VOLUME 8.5 fL (7.2-11.7); MONO # 0.7 K/uL (0.0-0.8); MONO % 8.2 % (0.0-10.0); NEUT # 6.9 K/uL (1.8-7.0); NEUT % 77.8 % (50.0-75.0); RBC 2.98 Mil/uL (4.40-5.90); RED CELL DISTRIBUTION WIDTH 13.9 % (11.5-14.5); WHITE BLOOD COUNT 8.9 K/uL (4.8-10.8)
[2018-01-23 07:59] LABS: ALB/GLOB RATIO 0.9 (1.0-2.1); ALBUMIN 2.7 g/dL (3.5-5.0); ALT/SGPT 25 U/L (21-72); AST/SGOT 24 U/L (17-59); BLOOD UREA NITROGEN 25 mg/dL (9-20); CALCIUM 7.9 mg/dl (8.6-10.4); GFR AFRICAN-AMERICAN > 60; GFR NON-AFRICAN AMERICAN > 60
[2018-01-23] MEDS: (Novolog) Insulin Aspart, Recombinant 100 u/ml 10 ml vial SC SCH ×4 (08:39→21:41)
[2018-01-23] MEDS: Multiple Vitamins Tab PO SCH (09:37)
[2018-01-23] MEDS: Enoxaparin 40 mg Syringe SC SCH (09:38)
[2018-01-23] MEDS: Divalproex 500 mg DR Tab PO SCH ×2 (09:39→17:26)
[2018-01-23] MEDS: Dorzolamide 2% Opht Sol 10ml OU SCH ×3 (09:39→17:25)
[2018-01-23] MEDS: Bisacodyl 5mg EC Tab PO SCH (11:05)
--- NOTE | 2018-01-23 11:43 | CP.PCM.PN ---
Subjective - Date & Time of Evaluation Date of Evaluation: 01/23/18 Time of Evaluation: 08:00 - Subjective Subjective: pt is seizure free cefepime d/c'd by neuro cultures pending IV rx renewed Objective - Vital Signs/Intake and Output Vital Signs (last 24 hours): Temp Pulse Resp BP Pulse Ox 99.2 F 87 20 147/82 97 01/23/18 09:21 01/23/18 09:21 01/23/18 09:21 01/23/18 09:21 01/23/18 09:30 Intake and Output: 01/23/18 01/23/18 06:59 18:59 Intake Total 1200 290 Balance 1200 290 - Medications Medications: Current Medications Acetaminophen (Tylenol 325mg Tab) 650 mg PO Q6 PRN PRN Reason: Fever >100.4 F Last Admin: 01/21/18 22:04 Dose: 650 mg Amlodipine Besylate (Norvasc) 10 mg PO DAILY [facility] Last Admin: 01/23/18 09:38 Dose: 10 mg Aspirin (Aspirin Chewable) 81 mg PO DAILY [facility] Last Admin: 01/23/18 09:37 Dose: 81 mg Bisacodyl (Dulcolax) 5 mg PO DAILY [facility] Last Admin: 01/23/18 11:05 Dose: Not Given Divalproex Sodium (Depakote Dr) 500 mg PO BID [facility] Last Admin: 01/23/18 09:39 Dose: 500 mg Docusate Sodium (Colace) 100 mg PO [facility] Last Admin: 01/22/18 21:36 Dose: 100 mg Dorzolamide HCl (Trusopt) 0 ml OU TID [facility] Last Admin: 01/23/18 09:39 Dose: 1 drop Enoxaparin Sodium (Lovenox) 40 mg SC DAILY [facility] Last Admin: 01/23/18 09:38 Dose: 40 mg Sodium Chloride (Sodium Chloride 0.45%) 1,000 mls @ 125 mls/hr IV .Q8H [facility] Last Admin: 01/23/18 05:56 Dose: 125 mls/hr Insulin Aspart (Novolog) 0 unit SC [facility] PRN Reason: Protocol Last Admin: 01/23/18 08:39 Dose: 3 unit Insulin Detemir (Levemir) 35 unit SC [facility] Last Admin: 01/22/18 21:51 Dose: 35 unit Latanoprost (Xalatan Opht) 0 ml OU HS [facility] Last Admin: 01/22/18 21:36 Dose: 2.5 ml Losartan Potassium (Cozaar) 100 mg PO DAILY [facility] Last Admin: 01/23/18 09:38 Dose: 100 mg Metformin HCl (Glucophage Xr) 1,000 mg PO DAILY [facility] Last Admin: 01/23/18 09:38 Dose: 1,000 mg Multivitamins (Hexavitamin) 1 tab PO DAILY [facility] Last Admin: 01/23/18 09:37 Dose: 1 tab Oxcarbazepine (Trileptal) 150 mg PO DAILY [facility] Last Admin: 01/23/18 09:39 Dose: 150 mg Rosuvastatin Calcium (Crestor) 20 mg PO HS [facility] Last Admin: 01/22/18 21:36 Dose: 20 mg Sertraline HCl (Zoloft) 50 mg PO DAILY [facility] Last Admin: 01/23/18 09:37 Dose: 50 mg Sitagliptin Phosphate (Januvia) 100 mg PO DAILY [facility] Last Admin: 01/23/18 09:51 Dose: 100 mg - Labs Labs: 01/23/18 07:04 01/23/18 07:04 PT 16.5 SECONDS (9.7-12.2) H 01/21/18 12:43 INR 1.5 01/21/18 12:43 APTT 30 SECONDS (21-34) 01/21/18 12:43 - Constitutional Appears: Non-toxic, Cachectic, Chronically Ill - Head Exam Head Exam: NORMOCEPHALIC - Eye Exam Eye Exam: PERRL - ENT Exam ENT Exam: Mucous Membranes Dry - Neck Exam Neck Exam: absent: Lymphadenopathy - Respiratory Exam Respiratory Exam: Decreased Breath Sounds - Cardiovascular Exam Cardiovascular Exam: REGULAR RHYTHM - GI/Abdominal Exam GI & Abdominal Exam: Distended - Rectal Exam Rectal Exam: Deferred - Exam Exam: NORMAL INSPECTION Assessment and Plan (1) Dizziness Status: Acute (2) Impaired ambulation Status: Acute (3) Pneumonia Status: Acute (4) CVA, old, hemiparesis Status: Acute (5) Dehydration Status: Acute (6) Diabetes mellitus Status: Acute
[2018-01-23] MEDS: Sodium Chloride 0.9% 1,000 ML IV SCH ×2 (12:11→19:45)
[2018-01-23] MEDS: cefTRIAXone 2 GM in Sodium Chloride 0.9% 100 ML IVPB SCH (12:13)
--- NOTE | 2018-01-23 12:53 | CON ---
DATE: 01/21/2018 REASON FOR CONSULTATION: Dizziness. HISTORY OF PRESENT ILLNESS: The patient is a 62-year-old male who was brought to the emergency room with complaints of dizziness. This happened two days ago. It was associated with some nausea. Dizziness was described as spinning sensation. He did not have any loss of hearing or ringing in the ears. The patient said that today's dizziness is a lot better. Denies any new weakness in arms or legs. The patient has history of brain tumor resection with residual left-sided weakness and seizures. The patient said his last seizure was several months ago. Denies any other new complaints. The patient is also being treated in the hospital for pneumonia. PAST MEDICAL HISTORY: Includes arthritis, depression, diabetes mellitus, hypertension, hypercholesterolemia, seizures. PAST SURGICAL HISTORY: Includes right frontal craniotomy for brain tumor removal. MEDICATIONS AT HOME: Included aspirin, losartan, multivitamin, insulin, docusate, Depakote 500 mg b.i.d., atorvastatin, bisacodyl, metformin, amlodipine, sertraline, Januvia, oxcarbazepine. ALLERGIES: NO KNOWN DRUG ALLERGIES. SOCIAL HISTORY: Denies smoking, use of alcohol, or illicit drugs. FAMILY HISTORY: Reviewed and noncontributory to the case. PHYSICAL EXAMINATION: GENERAL: The patient is a middle aged male. Looks older for his age. Lying in the bed, in no acute distress. VITAL SIGNS: Blood pressure is 147/82, heart rate is 87 per minute, breathing at the rate of 16 per minute, temperature is 99.2 degree Fahrenheit. HEENT: Head shows craniotomy scar on the right frontoparietal region. NECK: Supple. There are no carotid bruit. LUNGS: Clear. CVS: S1, S2 audible. No murmur. ABDOMEN: Soft and nontender with bowel sounds present. NEUROLOGY EXAMINATION: Mental Status: The patient is awake and alert; oriented to year, place, and person. He follows simple commands. Naming and repetition is normal. Cranial nerve examination: Pupils are 3 mm bilaterally, reactive to light. Visual mcneal are full. Extraocular movements are intact. There is no facial asymmetry. Tongue is midline. Motor examination: Tone is increased on the left side. Power on the right is 4/5, on the left side is 3/5. There is hyperreflexia noted on the left side. Plantars upgoing on the left and downgoing on the right side. Gait is deferred. The patient does not walk. Mostly, he uses wheelchair at home. LABORATORY DATA: Reviewed shows WBC of 8.9, hemoglobin of 9.3, hematocrit of 26.1, and platelets of 151,000. Sodium is 130,000, potassium is 3.9, chloride of 95, carbon dioxide 122, BUN of 25, creatinine 0.7, and glucose of 298. His chest x-ray shows consolidative changes in the right infrahilar region, biapical pleural thickening of the lobe, granulomatous changes. CT head findings, which include prominent encephalomalacia, some of which appear cystic in appearance in the right frontal lobe, most likely related to surgery, progressive and worsening extensive edges and white matter changes. Mild cerebral and cerebellar atrophy. Chronic microvascular ischemic changes. Right frontotemporal craniotomy. IMPRESSION: 1. Dizziness, which seems to be secondary to labyrinthine dysfunction and seems to be better now. 2. History of seizure disorder with history of right brain tumor resection with residual left-sided weakness. 3. Pneumonia. RECOMMENDATION: 1. The patient will have an electroencephalogram. 2. If the patient has dizziness symptoms again, then may be started on meclizine 12.5 mg every 8 hours. 3. The patient to be continued on oxcarbazepine as well as Depakote for his underlying seizures. 4. The patient is currently on cefepime for his seizures. It is to be discontinued because of potential for cefepime to cause seizures with his underlying seizure disorder. The patient to be started on another antibiotics. I have communicated this to the nursing staff who will be following the Infectious Disease doctor and communicating the same. 5. The patient to have seizure precautions. 6. Continue supportive care and other treatment. Thank you for the opportunity to participate in the care of this patient. Curt Mitchell MD
--- NOTE | 2018-01-23 18:28 | CP.PCM.PN ---
Subjective - Date & Time of Evaluation Date of Evaluation: 01/23/18 Time of Evaluation: 11:30 - Subjective Subjective: Patient seen and examined at bedside. Cough improved, patient's volume status appears improved. Assessment and Plan: 1. Pneumonia - CXR: Right infrahilar infiltrate - saturating 94-98% on 2L NC - 01/23 CBC: WBC 8.9 from 10.9, no bands - 01/21 VB.38/ 42/ 24 / 23.1, Lactate 5.9 - 01/21 Blood culture: preliminary no growth - 01/22 Pro-ca.83, lactic acid 2.2 - Dr. Norris on-board - Cefepime d/avery by neurology Objective - Vital Signs/Intake and Output Vital Signs (last 24 hours): Temp Pulse Resp BP Pulse Ox 99.3 F 93 H 20 120/76 98 01/23/18 15:00 01/23/18 15:00 01/23/18 15:00 01/23/18 15:00 01/23/18 15:00 Intake and Output: 01/23/18 01/23/18 06:59 18:59 Intake Total 1200 1790 Balance 1200 1790 - Medications Medications: Current Medications Acetaminophen (Tylenol 325mg Tab) 650 mg PO Q6 PRN PRN Reason: Fever >100.4 F Last Admin: 01/23/18 16:45 Dose: 650 mg Amlodipine Besylate (Norvasc) 10 mg PO DAILY [facility] Last Admin: 01/23/18 09:38 Dose: 10 mg Aspirin (Aspirin Chewable) 81 mg PO DAILY [facility] Last Admin: 01/23/18 09:37 Dose: 81 mg Bisacodyl (Dulcolax) 5 mg PO DAILY [facility] Last Admin: 01/23/18 11:05 Dose: Not Given Divalproex Sodium (Depakote Dr) 500 mg PO BID [facility] Last Admin: 01/23/18 17:26 Dose: 500 mg Docusate Sodium (Colace) 100 mg PO HS [facility] Last Admin: 01/22/18 21:36 Dose: 100 mg Dorzolamide HCl (Trusopt) 0 ml OU TID [facility] Last Admin: 01/23/18 17:25 Dose: 1 drop Enoxaparin Sodium (Lovenox) 40 mg SC DAILY [facility] Last Admin: 04/09/18 09:38 Dose: 40 mg Ceftriaxone Sodium 2 gm/ (Sodium Chloride) 100 mls @ 100 mls/hr IVPB Q24H [facility] PRN Reason: Protocol Last Admin: 01/23/18 12:13 Dose: 100 mls/hr Sodium Chloride (Sodium Chloride 0.9%) 1,000 mls @ 125 mls/hr IV .Q8H [facility] Last Admin: 01/23/18 12:11 Dose: 125 mls/hr Insulin Aspart (Novolog) 0 unit SC ACHS [facility] PRN Reason: Protocol Last Admin: 01/23/18 17:25 Dose: 3 unit Insulin Detemir (Levemir) 35 unit SC HS [facility] Last Admin: 01/22/18 21:51 Dose: 35 unit Latanoprost (Xalatan Opht) 0 ml OU HS [facility] Last Admin: 01/22/18 21:36 Dose: 2.5 ml Losartan Potassium (Cozaar) 100 mg PO DAILY [facility] Last Admin: 01/23/18 09:38 Dose: 100 mg Metformin HCl (Glucophage Xr) 1,000 mg PO DAILY [facility] Last Admin: 01/23/18 09:38 Dose: 1,000 mg Multivitamins (Hexavitamin) 1 tab PO DAILY [facility] Last Admin: 01/23/18 09:37 Dose: 1 tab Oxcarbazepine (Trileptal) 150 mg PO DAILY [facility] Last Admin: 01/23/18 09:39 Dose: 150 mg Rosuvastatin Calcium (Crestor) 20 mg PO HS [facility] Last Admin: 01/22/18 21:36 Dose: 20 mg Sertraline HCl (Zoloft) 50 mg PO DAILY [facility] Last Admin: 01/23/18 09:37 Dose: 50 mg Sitagliptin Phosphate (Januvia) 100 mg PO DAILY [facility] Last Admin: 01/23/18 09:51 Dose: 100 mg - Labs Labs: 01/23/18 07:04 01/23/18 07:04 PT 16.5 SECONDS (9.7-12.2) H 01/21/18 12:43 INR 1.5 01/21/18 12:43 APTT 30 SECONDS (21-34) 01/21/18 12:43 Assessment and Plan (1) Pneumonia Status: Acute (2) Dizziness Status: Acute (3) CVA, old, hemiparesis Status: Acute
[2018-01-23] MEDS: Latanoprost 2.5 ml Opht Soln OU SCH (21:35)
[2018-01-23] MEDS: Insulin Detemir 100 units/ml Vial (Levemir) SC SCH (21:36)
[2018-01-24] MEDS: Sodium Chloride 0.9% 1,000 ML IV SCH ×3 (04:17→14:39)
--- NOTE | 2018-01-24 05:33 | PN ---
DATE: SUBJECTIVE: I saw him resting comfortably in bed. He is very alert, more alert than yesterday, he knew me right off the bed. He is hungry. He wants to do physical therapy. He is trying to breathe better. He is on aspirin, cefepime, Colace, Cozaar, Crestor, Depakote, Dulcolax, Glucophage, vitamins, Januvia, Levemir, Lovenox, Norvasc, Novolin, IV fluids, Trileptal, Trusopt, Tylenol, Xalatan and Zoloft. PHYSICAL EXAMINATION: VITAL SIGNS: He has a 98.5 temp, 85 pulse, 120/74 blood pressure, 20 respiratory rate, 98% O2 sat on 2 L. HEENT: Head is atraumatic, normocephalic. He is very alert. He knew me right off the bed, says Good morning, Dr. Valentino. HEART: Regular rate. LUNGS: Decreased breath sounds, but clear. No wheezes, rhonchi, or rales. ABDOMEN: Soft, nontender. Positive bowel sounds. EXTREMITIES: No edema. He wants to get out of the bed. He wants to do physical therapy. LABORATORY DATA: He has 10.9 white count yesterday. Awaiting for labs from today, 9.4 hemoglobin yesterday. His lactate was 5.9, I believe it came down, I am not having that result. It came down to 2.2, it is still higher. All his blood sugars are in the 200. I will adjust his insulin. Legionella was negative. Mycoplasma was negative. He is being seen by Dr. Norris and Dr. Enriquez and is being treated for pneumonia. I am told he can be changed to p.o. antibiotics. I will discharge him mostly by tomorrow possibly. He looks so much better today than yesterday. We will try to get him out of the bed to chair. We will check labs tomorrow. I do think he is starting to improve with his pneumonia and elevated lactate. Gilmar Valentino DO
[2018-01-24 07:32] LABS: BASO % 0.4 % (0.0-2.0); EOS # 0.1 K/uL (0.0-0.7); EOS % 2.6 % (0.0-4.0); HEMOGLOBIN 9.1 g/dL (12.0-18.0); LYMPH # 0.8 K/uL (1.0-4.3); LYMPH % 13.3 % (20.0-40.0); MEAN CELL VOLUME 87.2 fL (80.0-94.0); MEAN CORPUSCULAR HEMOGLOBIN 30.9 pg (27.0-31.0); MEAN CORPUSCULAR HGB CONC 35.4 g/dL (33.0-37.0); MEAN PLATELET VOLUME 8.9 fL (7.2-11.7); MONO # 0.6 K/uL (0.0-0.8); NEUT # 4.2 K/uL (1.8-7.0); NEUT % 72.7 % (50.0-75.0); RBC 2.94 Mil/uL (4.40-5.90); RED CELL DISTRIBUTION WIDTH 14.2 % (11.5-14.5); WHITE BLOOD COUNT 5.7 K/uL (4.8-10.8)
[2018-01-24 07:40] LABS: ALB/GLOB RATIO 0.9 (1.0-2.1); ALBUMIN 2.6 g/dL (3.5-5.0); ALT/SGPT 142 U/L (21-72); AST/SGOT 122 U/L (17-59); BLOOD UREA NITROGEN 19 mg/dL (9-20); GFR AFRICAN-AMERICAN > 60; GFR NON-AFRICAN AMERICAN > 60
[2018-01-24] MEDS: (Novolog) Insulin Aspart, Recombinant 100 u/ml 10 ml vial SC SCH ×3 (08:22→17:10)
[2018-01-24] MEDS: Dorzolamide 2% Opht Sol 10ml OU SCH ×3 (09:50→17:08)
[2018-01-24] MEDS: Enoxaparin 40 mg Syringe SC SCH (09:50)
[2018-01-24] MEDS: Bisacodyl 5mg EC Tab PO SCH (09:51)
[2018-01-24] MEDS: Divalproex 500 mg DR Tab PO SCH ×2 (09:51→17:08)
[2018-01-24] MEDS: Multiple Vitamins Tab PO SCH (09:52)
--- NOTE | 2018-01-24 11:33 | CP.PCM.PN ---
Subjective - Date & Time of Evaluation Date of Evaluation: 01/24/18 Time of Evaluation: 08:00 - Subjective Subjective: rx for pneumonia in progress iv rx reordered discussed with dr jasmine Objective - Vital Signs/Intake and Output Vital Signs (last 24 hours): Temp Pulse Resp BP Pulse Ox 99.3 F 89 20 150/95 H 98 01/24/18 08:00 01/24/18 08:00 01/24/18 08:00 01/24/18 08:00 01/24/18 08:00 Intake and Output: 01/24/18 01/24/18 06:59 18:59 Intake Total 2350 Balance 2350 - Medications Medications: Current Medications Acetaminophen (Tylenol 325mg Tab) 650 mg PO Q6 PRN PRN Reason: Fever >100.4 F Last Admin: 01/23/18 16:45 Dose: 650 mg Amlodipine Besylate (Norvasc) 10 mg PO DAILY [facility] Last Admin: 01/24/18 09:51 Dose: 10 mg Aspirin (Aspirin Chewable) 81 mg PO DAILY [facility] Last Admin: 01/24/18 09:51 Dose: 81 mg Bisacodyl (Dulcolax) 5 mg PO DAILY [facility] Last Admin: 01/24/18 09:51 Dose: 5 mg Divalproex Sodium (Depakote Dr) 500 mg PO BID [facility] Last Admin: 01/24/18 09:51 Dose: 500 mg Docusate Sodium (Colace) 100 mg PO HS [facility] Last Admin: 01/23/18 21:36 Dose: 100 mg Dorzolamide HCl (Trusopt) 0 ml OU TID [facility] Last Admin: 01/24/18 09:50 Dose: 1 drop Enoxaparin Sodium (Lovenox) 40 mg SC DAILY [facility] Last Admin: 01/24/18 09:50 Dose: 40 mg Ceftriaxone Sodium 2 gm/ (Sodium Chloride) 100 mls @ 100 mls/hr IVPB Q24H [facility] PRN Reason: Protocol Last Admin: 01/23/18 12:13 Dose: 100 mls/hr Sodium Chloride (Sodium Chloride 0.9%) 1,000 mls @ 125 mls/hr IV .Q8H [facility] Last Admin: 01/24/18 04:17 Dose: 125 mls/hr Insulin Aspart (Novolog) 0 unit SC ACHS [facility] PRN Reason: Protocol Last Admin: 01/24/18 08:22 Dose: 2 unit Insulin Detemir (Levemir) 35 unit SC HS [facility] Last Admin: 01/23/18 21:36 Dose: 35 unit Latanoprost (Xalatan Opht) 0 ml OU HS [facility] Last Admin: 01/23/18 21:35 Dose: 2.5 ml Losartan Potassium (Cozaar) 100 mg PO DAILY [facility] Last Admin: 01/24/18 09:51 Dose: 100 mg Metformin HCl (Glucophage Xr) 1,000 mg PO DAILY [facility] Last Admin: 01/24/18 09:50 Dose: 1,000 mg Multivitamins (Hexavitamin) 1 tab PO DAILY [facility] Last Admin: 01/24/18 09:52 Dose: 1 tab Oxcarbazepine (Trileptal) 150 mg PO DAILY [facility] Last Admin: 01/24/18 09:51 Dose: 150 mg Rosuvastatin Calcium (Crestor) 20 mg PO HS [facility] Last Admin: 01/23/18 21:35 Dose: 20 mg Sertraline HCl (Zoloft) 50 mg PO DAILY [facility] Last Admin: 01/24/18 09:51 Dose: 50 mg Sitagliptin Phosphate (Januvia) 100 mg PO DAILY [facility] Last Admin: 01/24/18 09:51 Dose: 100 mg - Labs Labs: 01/24/18 07:02 01/24/18 07:02 PT 16.5 SECONDS (9.7-12.2) H 01/21/18 12:43 INR 1.5 01/21/18 12:43 APTT 30 SECONDS (21-34) 01/21/18 12:43 - Constitutional Appears: Non-toxic, Chronically Ill - Head Exam Head Exam: NORMOCEPHALIC - Eye Exam Eye Exam: PERRL - ENT Exam ENT Exam: Mucous Membranes Dry - Neck Exam Neck Exam: absent: Lymphadenopathy - Respiratory Exam Respiratory Exam: Decreased Breath Sounds - Cardiovascular Exam Cardiovascular Exam: REGULAR RHYTHM - GI/Abdominal Exam GI & Abdominal Exam: Distended, Soft Assessment and Plan (1) Dizziness Status: Acute (2) Impaired ambulation Status: Acute (3) Pneumonia Status: Acute (4) CVA, old, hemiparesis Status: Acute (5) Dehydration Status: Acute (6) Diabetes mellitus Status: Acute
[2018-01-24] MEDS: cefTRIAXone 2 GM in Sodium Chloride 0.9% 100 ML IVPB SCH (12:44)
[2018-01-24 13:36] LABS: HEPATITIS B SURFACE AG Negative (NEGATIVE)
[2018-01-24 13:41] LABS: HEPATITIS A IGM NEGATIVE (NEGATIVE); HEPATITIS B CORE AB NEGATIVE (NEGATIVE)
[2018-01-24 13:53] LABS: HEPATITIS C ANTIBODY NEGATIVE (NEGATIVE)
--- NOTE | 2018-01-24 14:58 | CP.PCM.CON ---
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 It is noted that patient's family are concerned that patient can no longer care for himself at home. Our service has been consulted for evaluation of abnormal LFTs. Since admission patient has been diagnosed with pneumonia and was started on anitmicrobial therapy with Cefepime which was changed to Ceftriaxone yesterday due to concern of lowering the seizure threshold. In the last 24 hours , patient's AST/ALT have jumped from 24/25 to 122/142. He has no history of underlying liver disease and review of his EMR shows no such elevations in these enzymes previously. He denies any symptoms at the moment such as abdominal pain, nausea, vomiting, fever, chills. PMHx: See HPI PSHx: Right frontal craniotomy, tonsilectomy, unknown right eye procedure FHx: Diabetes Social: Denies tobacco, EtOH or illicit drug use Endo: No prior endoscopic evaluations per patient and EMR 12 system ROS performed and negative except where stated. 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 - RENAL Hx Chronic Kidney Disease: No - ENDOCRINE/METABOLIC Hx Diabetes Mellitus Type 2: Yes - HEMATOLOGICAL/ONCOLOGICAL Hx Blood Disorders: No - INTEGUMENTARY Hx Dermatological Problems: No - MUSCULOSKELETAL/RHEUMATOLOGICAL Hx Falls: No - GASTROINTESTINAL Hx Gastrointestinal Disorders: No Other/Comment: Incontinet of stool - GENITOURINARY/GYNECOLOGICAL Hx Genitourinary Disorders: No Hx Incontinence: Yes Other/Comment: Incontinent of urine. - PSYCHIATRIC Hx Depression: Yes Hx Substance Use: No - SURGICAL HISTORY Hx Tonsillectomy: Yes - ANESTHESIA Hx Anesthesia: Yes Hx Anesthesia Reactions: Yes (vomiting) Hx Malignant Hyperthermia: No Meds Allergies/Adverse Reactions: Allergies Allergy/AdvReac Type Severity Reaction Status Date / Time No Known Allergies Allergy Verified 11/21/17 19:02 - Medications Medications: Current Medications Acetaminophen (Tylenol 325mg Tab) 650 mg PO Q6 PRN PRN Reason: Fever >100.4 F Last Admin: 01/23/18 16:45 Dose: 650 mg Amlodipine Besylate (Norvasc) 10 mg PO DAILY [facility] Last Admin: 01/24/18 09:51 Dose: 10 mg Aspirin (Aspirin Chewable) 81 mg PO DAILY [facility] Last Admin: 01/24/18 09:51 Dose: 81 mg Bisacodyl (Dulcolax) 5 mg PO DAILY [facility] Last Admin: 01/24/18 09:51 Dose: 5 mg Divalproex Sodium (Depakote Dr) 500 mg PO BID [facility] Last Admin: 01/24/18 09:51 Dose: 500 mg Docusate Sodium (Colace) 100 mg PO HS [facility] Last Admin: 01/23/18 21:36 Dose: 100 mg Dorzolamide HCl (Trusopt) 0 ml OU TID [facility] Last Admin: 01/24/18 14:09 Dose: 1 drop Enoxaparin Sodium (Lovenox) 40 mg SC DAILY [facility] Last Admin: 01/24/18 09:50 Dose: 40 mg Ceftriaxone Sodium 2 gm/ (Sodium Chloride) 100 mls @ 100 mls/hr IVPB Q24H [facility] PRN Reason: Protocol Last Admin: 01/24/18 12:44 Dose: 100 mls/hr Sodium Chloride (Sodium Chloride 0.9%) 1,000 mls @ 125 mls/hr IV .Q8H [facility] Last Admin: 01/24/18 14:39 Dose: 125 mls/hr Insulin Aspart (Novolog) 0 unit SC ACHS [facility] PRN Reason: Protocol Last Admin: 01/24/18 12:19 Dose: 3 unit Insulin Detemir (Levemir) 35 unit SC HS [facility] Last Admin: 01/23/18 21:36 Dose: 35 unit Latanoprost (Xalatan Opht) 0 ml OU HS [facility] Last Admin: 01/23/18 21:35 Dose: 2.5 ml Losartan Potassium (Cozaar) 100 mg PO DAILY [facility] Last Admin: 01/24/18 09:51 Dose: 100 mg Metformin HCl (Glucophage Xr) 1,000 mg PO DAILY [facility] Last Admin: 01/24/18 09:50 Dose: 1,000 mg Multivitamins (Hexavitamin) 1 tab PO DAILY [facility] Last Admin: 01/24/18 09:52 Dose: 1 tab Oxcarbazepine (Trileptal) 150 mg PO DAILY [facility] Last Admin: 01/24/18 09:51 Dose: 150 mg Rosuvastatin Calcium (Crestor) 20 mg PO HS [facility] Last Admin: 01/23/18 21:35 Dose: 20 mg Sertraline HCl (Zoloft) 50 mg PO DAILY [facility] Last Admin: 01/24/18 09:51 Dose: 50 mg Sitagliptin Phosphate (Januvia) 100 mg PO DAILY [facility] Last Admin: 01/24/18 09:51 Dose: 100 mg Physical Exam - Constitutional Appears: Non-toxic, No Acute Distress - Eye Exam Eye Exam: EOMI, PERRL Additional comments: decreased vision in right eye - ENT Exam ENT Exam: Mucous Membranes Moist - Respiratory Exam Respiratory Exam: Rales. absent: Clear to Auscultation Bilateral, Rhonchi, Wheezes - Cardiovascular Exam Cardiovascular Exam: RRR, +S1, +S2 - GI/Abdominal Exam GI & Abdominal Exam: Normal Bowel Sounds, Soft. absent: Distended, Firm, Guarding, Organomegaly, Rigid, Tenderness - Extremities Exam Extremities exam: Positive for: normal inspection. Negative for: pedal edema Additional comments: LLE weakness - Neurological Exam Neurological exam: Alert, Oriented x3 - Psychiatric Exam Psychiatric exam: Normal Affect, Normal Mood - Skin Skin Exam: Dry, Warm - Additional Findings Additional findings: deformity of right frontal bone c/w history of craniotomy Results - Vital Signs Recent Vital Signs: Last Vital Signs Temp 99.3 F 01/24/18 08:00 Pulse 89 01/24/18 08:00 Resp 20 01/24/18 08:00 BP 150/95 H 01/24/18 08:00 Pulse Ox 98 01/24/18 08:00 - Labs Result Diagrams: 01/24/18 07:02 01/24/18 07:02 Labs: Laboratory Results - last 24 hr 01/23/18 01/23/18 01/24/18 16:18 21:12 07:02 WBC 5.7 RBC 2.94 L Hgb 9.1 L Hct 25.7 L MCV 87.2 MCH 30.9 MCHC 35.4 RDW 14.2 Plt Count 171 MPV 8.9 Neut % (Auto) 72.7 Lymph % (Auto) 13.3 L [place] % (Auto) 11.0 H Eos % (Auto) 2.6 Baso % (Auto) 0.4 Neut # (Auto) 4.2 Lymph # (Auto) 0.8 L [place] # (Auto) 0.6 Eos # (Auto) 0.1 Baso # (Auto) 0.0 Sodium Potassium Chloride Carbon Dioxide Anion Gap BUN Creatinine Est GFR ( Amer) Est GFR (Non-Af Amer) POC Glucose (mg/dL) 289 H 238 H Random Glucose Calcium Total Bilirubin AST ALT Alkaline Phosphatase Total Protein Albumin Globulin Albumin/Globulin Ratio Hepatitis A IgM Ab Hep Bs Antigen Hep B Core IgM Ab Hepatitis C Antibody 01/24/18 01/24/18 01/24/18 07:02 07:18 11:16 WBC RBC Hgb Hct MCV MCH MCHC RDW Plt Count MPV Neut % (Auto) Lymph % (Auto) [place] % (Auto) Eos % (Auto) Baso % (Auto) Neut # (Auto) Lymph # (Auto) [place] # (Auto) Eos # (Auto) Baso # (Auto) Sodium 134 Potassium 3.8 Chloride 99 Carbon Dioxide 24 Anion Gap 16 BUN 19 Creatinine 0.6 L Est GFR ( Amer) > 60 Est GFR (Non-Af Amer) > 60 POC Glucose (mg/dL) 202 H 291 H Random Glucose 199 H Calcium 8.0 L Total Bilirubin 0.2 AST 122 H D ALT 142 H D Alkaline Phosphatase 100 Total Protein 5.4 L Albumin 2.6 L Globulin 2.8 Albumin/Globulin Ratio 0.9 L Hepatitis A IgM Ab Hep Bs Antigen Hep B Core IgM Ab Hepatitis C Antibody 01/24/18 12:53 WBC RBC Hgb Hct MCV MCH MCHC RDW Plt Count MPV Neut % (Auto) Lymph % (Auto) [place] % (Auto) Eos % (Auto) Baso % (Auto) Neut # (Auto) Lymph # (Auto) [place] # (Auto) Eos # (Auto) Baso # (Auto) Sodium Potassium Chloride Carbon Dioxide Anion Gap BUN Creatinine Est GFR ( Amer) Est GFR (Non-Af Amer) POC Glucose (mg/dL) Random Glucose Calcium Total Bilirubin AST ALT Alkaline Phosphatase Total Protein Albumin Globulin Albumin/Globulin Ratio Hepatitis A IgM Ab Negative Hep Bs Antigen Negative Hep B Core IgM Ab Negative Hepatitis C Antibody Negative Assessment & Plan - Assessment and Plan (Free Text) Assessment: Patient is a 62yo male with PMHx significant for brain tumor s/p resection in 2010, 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, HTN, dyslipidemia, seizure disorder who presented to the ED from home with complaint of worsening dizziness -Pneumonia -Elevated LFTs, hepatocellular pattern with concern for DILI given acute onset during admission -H/O CVA with L hemiparesis -Seizure d/o Plan: -Recommend discontinuation of ceftriaxone if possible with conversion to another antimicrobial agent as this can possibly cause DILI -No other new medications noted in last 24-48H -Monitor LFTs -Hepatitis serologies negative -Check U/S abdomen with duplex - evaluate liver parenchyma and R/O acute thrombus -Avoid hepatotoxins -Diet as tolerated -Would benefit from outpatient screening colonoscopy - Date & Time Date: 01/24/18 Time: 15:00 <Albaro Keith - Last Filed: 01/24/18 15:33> Meds - Medications Medications: Current Medications Acetaminophen (Tylenol 325mg Tab) 650 mg PO Q6 PRN PRN Reason: Fever >100.4 F Last Admin: 01/23/18 16:45 Dose: 650 mg Amlodipine Besylate (Norvasc) 10 mg PO DAILY [facility] Last Admin: 01/24/18 09:51 Dose: 10 mg Aspirin (Aspirin Chewable) 81 mg PO DAILY [facility] Last Admin: 01/24/18 09:51 Dose: 81 mg Bisacodyl (Dulcolax) 5 mg PO DAILY [facility] Last Admin: 01/24/18 09:51 Dose: 5 mg Divalproex Sodium (Depakote Dr) 500 mg PO BID [facility] Last Admin: 01/24/18 09:51 Dose: 500 mg Docusate Sodium (Colace) 100 mg PO HS [facility] Last Admin: 01/23/18 21:36 Dose: 100 mg Dorzolamide HCl (Trusopt) 0 ml OU TID [facility] Last Admin: 01/24/18 14:09 Dose: 1 drop Enoxaparin Sodium (Lovenox) 40 mg SC DAILY [facility] Last Admin: 01/24/18 09:50 Dose: 40 mg Ceftriaxone Sodium 2 gm/ (Sodium Chloride) 100 mls @ 100 mls/hr IVPB Q24H [facility] PRN Reason: Protocol Last Admin: 01/24/18 12:44 Dose: 100 mls/hr Sodium Chloride (Sodium Chloride 0.9%) 1,000 mls @ 125 mls/hr IV .Q8H [facility] Last Admin: 01/24/18 14:39 Dose: 125 mls/hr Insulin Aspart (Novolog) 0 unit SC ACHS [facility] PRN Reason: Protocol Last Admin: 01/24/18 12:19 Dose: 3 unit Insulin Detemir (Levemir) 35 unit SC HS [facility] Last Admin: 01/23/18 21:36 Dose: 35 unit Latanoprost (Xalatan Opht) 0 ml OU HS [facility] Last Admin: 01/23/18 21:35 Dose: 2.5 ml Losartan Potassium (Cozaar) 100 mg PO DAILY [facility] Last Admin: 01/24/18 09:51 Dose: 100 mg Metformin HCl (Glucophage Xr) 1,000 mg PO DAILY [facility] Last Admin: 01/24/18 09:50 Dose: 1,000 mg Multivitamins (Hexavitamin) 1 tab PO DAILY [facility] Last Admin: 01/24/18 09:52 Dose: 1 tab Oxcarbazepine (Trileptal) 150 mg PO DAILY [facility] Last Admin: 01/24/18 09:51 Dose: 150 mg Rosuvastatin Calcium (Crestor) 20 mg PO HS [facility] Last Admin: 01/23/18 21:35 Dose: 20 mg Sertraline HCl (Zoloft) 50 mg PO DAILY [facility] Last Admin: 01/24/18 09:51 Dose: 50 mg Sitagliptin Phosphate (Januvia) 100 mg PO DAILY [facility] Last Admin: 01/24/18 09:51 Dose: 100 mg Results - Vital Signs Recent Vital Signs: Last Vital Signs Temp 99.3 F 01/24/18 08:00 Pulse 89 01/24/18 08:00 Resp 20 01/24/18 08:00 BP 150/95 H 01/24/18 08:00 Pulse Ox 98 01/24/18 08:00 - Labs Result Diagrams: 01/24/18 07:02 01/24/18 07:02 Labs: Laboratory Results - last 24 hr 01/23/18 01/23/18 01/24/18 16:18 21:12 07:02 WBC 5.7 RBC 2.94 L Hgb 9.1 L Hct 25.7 L MCV 87.2 MCH 30.9 MCHC 35.4 RDW 14.2 Plt Count 171 MPV 8.9 Neut % (Auto) 72.7 Lymph % (Auto) 13.3 L [place] % (Auto) 11.0 H Eos % (Auto) 2.6 Baso % (Auto) 0.4 Neut # (Auto) 4.2 Lymph # (Auto) 0.8 L [place] # (Auto) 0.6 Eos # (Auto) 0.1 Baso # (Auto) 0.0 Sodium Potassium Chloride Carbon Dioxide Anion Gap BUN Creatinine Est GFR ( Amer) Est GFR (Non-Af Amer) POC Glucose (mg/dL) 289 H 238 H Random Glucose Calcium Total Bilirubin AST ALT Alkaline Phosphatase Total Protein Albumin Globulin Albumin/Globulin Ratio Hepatitis A IgM Ab Hep Bs Antigen Hep B Core IgM Ab Hepatitis C Antibody 01/24/18 01/24/18 01/24/18 07:02 07:18 11:16 WBC RBC Hgb Hct MCV MCH MCHC RDW Plt Count MPV Neut % (Auto) Lymph % (Auto) [place] % (Auto) Eos % (Auto) Baso % (Auto) Neut # (Auto) Lymph # (Auto) [place] # (Auto) Eos # (Auto) Baso # (Auto) Sodium 134 Potassium 3.8 Chloride 99 Carbon Dioxide 24 Anion Gap 16 BUN 19 Creatinine 0.6 L Est GFR ( Amer) > 60 Est GFR (Non-Af Amer) > 60 POC Glucose (mg/dL) 202 H 291 H Random Glucose 199 H Calcium 8.0 L Total Bilirubin 0.2 AST 122 H D ALT 142 H D Alkaline Phosphatase 100 Total Protein 5.4 L Albumin 2.6 L Globulin 2.8 Albumin/Globulin Ratio 0.9 L Hepatitis A IgM Ab Hep Bs Antigen Hep B Core IgM Ab Hepatitis C Antibody 01/24/18 12:53 WBC RBC Hgb Hct MCV MCH MCHC RDW Plt Count MPV Neut % (Auto) Lymph % (Auto) [place] % (Auto) Eos % (Auto) Baso % (Auto) Neut # (Auto) Lymph # (Auto) [place] # (Auto) Eos # (Auto) Baso # (Auto) Sodium Potassium Chloride Carbon Dioxide Anion Gap BUN Creatinine Est GFR ( Amer) Est GFR (Non-Af Amer) POC Glucose (mg/dL) Random Glucose Calcium Total Bilirubin AST ALT Alkaline Phosphatase Total Protein Albumin Globulin Albumin/Globulin Ratio Hepatitis A IgM Ab Negative Hep Bs Antigen Negative Hep B Core IgM Ab Negative Hepatitis C Antibody Negative Attending/Attestation - Attestation I have personally seen and examined this patient.: Yes I have fully participated in the care of the patient.: Yes I have reviewed all pertinent clinical information: Yes Notes (Text): 01/24/18 15:28 I have seen and examined patient with GI fellow. Agree with above documentation with the following additions. In brief, this is a 62 year old male with history of DM, HTN, hyperlipidemia, seizure disorder, brain tumor s/p resection, CVA with residual L sided weakness who initially presented to hospital with complaint of dizzniess and progressive lethargy. He was found to have pneumonia, currently being treated with antibiotic therapy. GI called for evaluation of sudden onset elevation in LFTs. He denies associated abdominal pain, nausea, vomiting, diarrhea, fever/chills, weight loss, rectal bleeding, jaundice, pruritis, prior history of liver disease, excessive ETOH or tylenol use. No prior endoscopic evaluation. Initial LFTs on hospital admission were normal. DM / HTN Hyperlipidemia Seizure disorder Brain tumor s/p resection CVA Pneumonia Transaminitis - sudden elevation likely related to drug induced liver injury given clinical scenario with ongoing antibiotic therapy - Diet as tolerated - Continue with antibiotic therapy - Continue to monitor LFTs, avoid hepatotoxic therapies. Viral hepatitis panel negative. - Obtain abdominal US with doppler to ensure vascular patency - If continued rise noted, will need to consider change in antibiotic regimen - Will continue to monitor patient clinical course
--- NOTE | 2018-01-24 16:24 | CP.PCM.PN ---
Subjective - Date & Time of Evaluation Date of Evaluation: 01/24/18 Time of Evaluation: 14:00 - Subjective Subjective: Patient seen and examined at bedside. Cough improved Assessment and Plan: 1. Pneumonia - CXR 01/21: Right infrahilar infiltrate - saturating 94-98% on 2L NC - 01/24 CBC: WBC 5.7 - 01/21 VB.38/ 42/ 24 / 23.1, Lactate 5.9, 2.2 - 01/21 Blood culture: preliminary no growth - Dr. Norris on-board - [facility] Objective - Vital Signs/Intake and Output Vital Signs (last 24 hours): Temp Pulse Resp BP Pulse Ox 99.3 F 76 20 150/95 H 98 01/24/18 08:00 01/24/18 15:36 01/24/18 08:00 01/24/18 08:00 01/24/18 15:36 Intake and Output: 01/24/18 01/24/18 06:59 18:59 Intake Total 2350 1240 Balance 2350 1240 - Medications Medications: Current Medications Acetaminophen (Tylenol 325mg Tab) 650 mg PO Q6 PRN PRN Reason: Fever >100.4 F Last Admin: 01/23/18 16:45 Dose: 650 mg Amlodipine Besylate (Norvasc) 10 mg PO DAILY [facility] Last Admin: 01/24/18 09:51 Dose: 10 mg Aspirin (Aspirin Chewable) 81 mg PO DAILY [facility] Last Admin: 01/24/18 09:51 Dose: 81 mg Bisacodyl (Dulcolax) 5 mg PO DAILY [facility] Last Admin: 01/24/18 09:51 Dose: 5 mg Divalproex Sodium (Depakote Dr) 500 mg PO BID [facility] Last Admin: 01/24/18 09:51 Dose: 500 mg Docusate Sodium (Colace) 100 mg PO HS [facility] Last Admin: 01/23/18 21:36 Dose: 100 mg Dorzolamide HCl (Trusopt) 0 ml OU TID [facility] Last Admin: 01/24/18 14:09 Dose: 1 drop Enoxaparin Sodium (Lovenox) 40 mg SC DAILY [facility] Last Admin: 01/24/18 09:50 Dose: 40 mg Ceftriaxone Sodium 2 gm/ (Sodium Chloride) 100 mls @ 100 mls/hr IVPB Q24H [facility] PRN Reason: Protocol Last Admin: 01/24/18 12:44 Dose: 100 mls/hr Sodium Chloride (Sodium Chloride 0.9%) 1,000 mls @ 125 mls/hr IV .Q8H [facility] Last Admin: 01/24/18 14:39 Dose: 125 mls/hr Insulin Aspart (Novolog) 0 unit SC ACHS [facility] PRN Reason: Protocol Last Admin: 01/24/18 12:19 Dose: 3 unit Insulin Detemir (Levemir) 35 unit SC HS [facility] Last Admin: 01/23/18 21:36 Dose: 35 unit Latanoprost (Xalatan Opht) 0 ml OU HS [facility] Last Admin: 01/23/18 21:35 Dose: 2.5 ml Losartan Potassium (Cozaar) 100 mg PO DAILY [facility] Last Admin: 01/24/18 09:51 Dose: 100 mg Metformin HCl (Glucophage Xr) 1,000 mg PO DAILY [facility] Last Admin: 01/24/18 09:50 Dose: 1,000 mg Multivitamins (Hexavitamin) 1 tab PO DAILY [facility] Last Admin: 01/24/18 09:52 Dose: 1 tab Oxcarbazepine (Trileptal) 150 mg PO DAILY [facility] Last Admin: 01/24/18 09:51 Dose: 150 mg Rosuvastatin Calcium (Crestor) 20 mg PO HS [facility] Last Admin: 01/23/18 21:35 Dose: 20 mg Sertraline HCl (Zoloft) 50 mg PO DAILY [facility] Last Admin: 01/24/18 09:51 Dose: 50 mg Sitagliptin Phosphate (Januvia) 100 mg PO DAILY [facility] Last Admin: 01/24/18 09:51 Dose: 100 mg - Labs Labs: 01/24/18 07:02 01/24/18 07:02 PT 16.5 SECONDS (9.7-12.2) H 01/21/18 12:43 INR 1.5 01/21/18 12:43 APTT 30 SECONDS (21-34) 01/21/18 12:43 Assessment and Plan (1) Pneumonia Status: Acute (2) Dizziness Status: Acute (3) CVA, old, hemiparesis Status: Acute
--- NOTE | 2018-01-24 22:07 | US ---
EXAM: US abdomen complete EXAM DATE/TIME: Exam ordered 01/24/2018 3:22 PM CLINICAL HISTORY: 62 years old, male; Abnormal findings; Abnormal lab test; Other: Elevated lfts; Additional info: Elevated lfts; Eval liver parenchyma, R/O thrombus TECHNIQUE: Real-time ultrasound of the abdomen complete with color Doppler and image documentation. COMPARISON: No relevant prior studies available. FINDINGS: Liver:.The liver measures 20 cm in craniocaudal span. No mass.There is normal blood flow direction in the main portal vein. Normal blood flow direction is seen in the hepatic veins. Normal phasic flow is demonstrated on pulsed Doppler examination of the hepatic veins. Spleen:The spleen measures 11.8 cm in craniocaudal span. No mass Pancreas: Not well-seen due to bowel gas Gallbladder: There is gallbladder wall thickening. There is pericholecystic fluid. Gallstones are seen in the gallbladder. Negative Edmondson's sign. Common bile duct:The common bile duct measures 4 mm. Kidneys:The left kidney measures 12.6 x 6.8 x 6.6 cm cm.. The right kidney measures 12.8 x 5.6 x 5.4 cm. No hydronephrosis. No stones. Free fluid: A trace amount of free fluid is noted along the anterior aspect of the liver. Aorta: The mid and distal abdominal aorta are not seen due to bowel gas. Proximally the aorta shows no evidence of aneurysm. Inferior vena cava : Unremarkable Other: There is a moderate size right pleural effusion. . IMPRESSION: 1. Hepatomegaly. 2. Gallstones with gallbladder wall thickening and a negative sonographic Edmondson sign. Gallbladder wall thickening is a nonspecific finding and can be seen with a variety of metabolic and local inflammatory abnormalities. 3. Small amount of abdominal ascites. 4. Moderate size right pleural effusion
[2018-01-25] MEDS: Sodium Chloride 0.9% 1,000 ML IV SCH (03:45)
--- NOTE | 2018-01-25 06:17 | DS ---
HISTORY OF PRESENT ILLNESS: He is resting comfortably in the bed. He is sleeping well. He is in no acute distress. No shortness of breath. No chest pain. He is more alert. MEDICATIONS: He is on aspirin, Colace, Cozaar, Crestor, Depakote, Dulcolax, Glucophage, multivitamins, Januvia, Levemir, Lovenox, Norvasc, Novolin, Rocephin 2 gm, IV fluids, Trileptal, Trusopt, Tylenol, Dilantin, and Zoloft. PHYSICAL EXAMINATION: VITAL SIGNS: He has 99.1 temp, 89 pulse, 129/74 blood pressure, 20 respiratory rate, 98% O2 saturation on room air. HEENT: Head is atraumatic and normocephalic. HEART: Regular rate. LUNGS: Decreased breath sounds. ABDOMEN: Soft, obese, and nontender. EXTREMITIES: Without weakness. LABORATORY DATA: He has labs, he has 8.9 white count yesterday, 9.3 hemoglobin, 26.1 hematocrit with 151 platelets. He has 130 sodium, potassium is 3.9, BUN is 25, creatinine 0.7, GFR is greater than 60. His last blood sugar was 238, calcium is 7.9, total bilirubin is 0.38, AST is 24, ALT is 25, alkaline phosphatase is 54, and total protein is 5.6. He has micro done. No growth in the urine. ASSESSMENT AND PLAN: I am hoping we can discharge him today. We will see if the pneumonia tablets to get him out, I think he has improved. He is comfortable. Family wants him home. He wants to go home. I will discuss this with Dr. Norris and the other doctors who felt possible discharge to home put him on p.o. antibiotics, and hopefully will discharge Mr. Jamie Mayfield for pneumonia and elevated lactate which is coming down. Gilmar Valentino DO MTDAlfreda
--- NOTE | 2018-01-25 07:27 | CP.PCM.PN ---
<Sukumar Valencia - Last Filed: 01/25/18 12:21> Subjective - Date & Time of Evaluation Date of Evaluation: 01/25/18 Time of Evaluation: 06:50 - Subjective Subjective: PGY5 GI Fellow Progress Note Patient seen and examined bedside this morning. The patient denies any complaints this morning. Specifically, no abdominal pain, nausea, vomiting, diarrhea, constipation. No events overnight. 12 system ROS performed and negative except where stated. Objective - Vital Signs/Intake and Output Vital Signs (last 24 hours): Temp Pulse Resp BP Pulse Ox 97.7 F 66 18 139/84 98 01/24/18 23:52 01/24/18 23:52 01/24/18 23:52 01/24/18 23:52 01/24/18 23:52 Intake and Output: 01/25/18 01/25/18 06:59 18:59 Intake Total 1120 Balance 1120 - Medications Medications: Current Medications Acetaminophen (Tylenol 325mg Tab) 650 mg PO Q6 PRN PRN Reason: Fever >100.4 F Last Admin: 01/23/18 16:45 Dose: 650 mg Amlodipine Besylate (Norvasc) 10 mg PO DAILY [facility] Last Admin: 01/24/18 09:51 Dose: 10 mg Aspirin (Aspirin Chewable) 81 mg PO DAILY [facility] Last Admin: 01/24/18 09:51 Dose: 81 mg Bisacodyl (Dulcolax) 5 mg PO DAILY [facility] Last Admin: 01/24/18 09:51 Dose: 5 mg Divalproex Sodium (Depakote Dr) 500 mg PO BID [facility] Last Admin: 01/24/18 17:08 Dose: 500 mg Docusate Sodium (Colace) 100 mg PO HS [facility] Last Admin: 01/23/18 21:36 Dose: 100 mg Dorzolamide HCl (Trusopt) 0 ml OU TID [facility] Last Admin: 01/24/18 17:08 Dose: 1 drop Enoxaparin Sodium (Lovenox) 40 mg SC DAILY [facility] Last Admin: 01/24/18 09:50 Dose: 40 mg Ceftriaxone Sodium 2 gm/ (Sodium Chloride) 100 mls @ 100 mls/hr IVPB Q24H [facility] PRN Reason: Protocol Last Admin: 01/24/18 12:44 Dose: 100 mls/hr Sodium Chloride (Sodium Chloride 0.9%) 1,000 mls @ 125 mls/hr IV .Q8H [facility] Last Admin: 01/25/18 03:45 Dose: Not Given Insulin Aspart (Novolog) 0 unit SC ACHS [facility] PRN Reason: Protocol Last Admin: 01/24/18 17:10 Dose: 2 unit Insulin Detemir (Levemir) 35 unit SC HS [facility] Last Admin: 01/23/18 21:36 Dose: 35 unit Latanoprost (Xalatan Opht) 0 ml OU HS [facility] Last Admin: 01/23/18 21:35 Dose: 2.5 ml Losartan Potassium (Cozaar) 100 mg PO DAILY [facility] Last Admin: 01/24/18 09:51 Dose: 100 mg Metformin HCl (Glucophage Xr) 1,000 mg PO DAILY [facility] Last Admin: 01/24/18 09:50 Dose: 1,000 mg Multivitamins (Hexavitamin) 1 tab PO DAILY [facility] Last Admin: 01/24/18 09:52 Dose: 1 tab Oxcarbazepine (Trileptal) 150 mg PO DAILY [facility] Last Admin: 01/24/18 09:51 Dose: 150 mg Rosuvastatin Calcium (Crestor) 20 mg PO HS [facility] Last Admin: 01/23/18 21:35 Dose: 20 mg Sertraline HCl (Zoloft) 50 mg PO DAILY [facility] Last Admin: 01/24/18 09:51 Dose: 50 mg Sitagliptin Phosphate (Januvia) 100 mg PO DAILY [facility] Last Admin: 01/24/18 09:51 Dose: 100 mg - Labs Labs: 01/24/18 07:02 01/24/18 07:02 PT 16.5 SECONDS (9.7-12.2) H 01/21/18 12:43 INR 1.5 01/21/18 12:43 APTT 30 SECONDS (21-34) 01/21/18 12:43 - Constitutional Appears: Non-toxic, No Acute Distress - Head Exam Additional comments: right frontal deformity s/p craniotomy in 2009 - Eye Exam Eye Exam: EOMI, PERRL Additional comments: dec vision in right eye - ENT Exam ENT Exam: Mucous Membranes Moist - Respiratory Exam Respiratory Exam: Rales. absent: Rhonchi, Wheezes - Cardiovascular Exam Cardiovascular Exam: RRR, +S1, +S2 - GI/Abdominal Exam GI & Abdominal Exam: Soft, Normal Bowel Sounds. absent: Distended, Firm, Guarding, Rigid, Tenderness, Organomegaly - Extremities Exam Extremities Exam: Normal Inspection. 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, HTN, dyslipidemia, seizure disorder who presented to the ED from home with complaint of worsening dizziness -Pneumonia -Elevated LFTs, hepatocellular pattern with concern for DILI given acute onset during admission -H/O CVA with L hemiparesis -Seizure d/o Plan: -LFTs downtrending - can monitor as outpatient -U/S reviewed - hepatomegaly with small amount of ascites noted; not cirrhotic in appearance and patient does not show stigmata of chronic liver disease -R/O autoimmune component - check [place], AMA, ASMA, IgG level -Encourage discontinuation of ceftriaxone and conversion to another antimicrobial agent -Hepatitis serologies negative -Avoid hepatotoxins -Diet as tolerated -Would benefit from outpatient screening colonoscopy -OK for D/C from GI standpoint <Albaro Keith Y - Last Filed: 01/25/18 14:34> Objective - Vital Signs/Intake and Output Vital Signs (last 24 hours): Temp Pulse Resp BP Pulse Ox 98.7 F 79 20 151/83 H 98 01/25/18 06:00 01/25/18 06:00 01/25/18 06:00 01/25/18 06:00 01/25/18 06:00 Intake and Output: 01/25/18 01/25/18 06:59 18:59 Intake Total 1120 Output Total 400 Balance 1120 -400 - Medications Medications: Current Medications Acetaminophen (Tylenol 325mg Tab) 650 mg PO Q6 PRN PRN Reason: Fever >100.4 F Last Admin: 01/23/18 16:45 Dose: 650 mg Amlodipine Besylate (Norvasc) 10 mg PO DAILY [facility] Last Admin: 01/25/18 10:56 Dose: 10 mg Aspirin (Aspirin Chewable) 81 mg PO DAILY [facility] Last Admin: 01/25/18 10:56 Dose: 81 mg Bisacodyl (Dulcolax) 5 mg PO DAILY [facility] Last Admin: 01/25/18 10:57 Dose: 5 mg Divalproex Sodium (Depakote Dr) 500 mg PO BID [facility] Last Admin: 01/25/18 10:59 Dose: 500 mg Docusate Sodium (Colace) 100 mg PO HS [facility] Last Admin: 01/23/18 21:36 Dose: 100 mg Dorzolamide HCl (Trusopt) 0 ml OU TID [facility] Last Admin: 01/25/18 11:00 Dose: 1 drop Enoxaparin Sodium (Lovenox) 40 mg SC DAILY [facility] Last Admin: 01/25/18 10:57 Dose: 40 mg Ceftriaxone Sodium 2 gm/ (Sodium Chloride) 100 mls @ 100 mls/hr IVPB Q24H [facility] PRN Reason: Protocol Last Admin: 01/25/18 12:31 Dose: 100 mls/hr Insulin Aspart (Novolog) 0 unit SC ACHS [facility] PRN Reason: Protocol Last Admin: 01/25/18 12:29 Dose: 2 unit Insulin Detemir (Levemir) 35 unit SC HS [facility] Last Admin: 01/23/18 21:36 Dose: 35 unit Latanoprost (Xalatan Opht) 0 ml OU HS [facility] Last Admin: 01/23/18 21:35 Dose: 2.5 ml Losartan Potassium (Cozaar) 100 mg PO DAILY [facility] Last Admin: 01/25/18 10:56 Dose: 100 mg Metformin HCl (Glucophage Xr) 1,000 mg PO DAILY [facility] Last Admin: 01/25/18 10:59 Dose: 1,000 mg Multivitamins (Hexavitamin) 1 tab PO DAILY [facility] Last Admin: 01/25/18 10:56 Dose: 1 tab Oxcarbazepine (Trileptal) 150 mg PO DAILY [facility] Last Admin: 01/25/18 11:00 Dose: 150 mg Rosuvastatin Calcium (Crestor) 20 mg PO HS [facility] Last Admin: 01/23/18 21:35 Dose: 20 mg Sertraline HCl (Zoloft) 50 mg PO DAILY [facility] Last Admin: 01/25/18 10:56 Dose: 50 mg Sitagliptin Phosphate (Januvia) 100 mg PO DAILY [facility] Last Admin: 01/25/18 10:59 Dose: 100 mg - Labs Labs: 01/25/18 07:57 01/25/18 07:57 PT 16.5 SECONDS (9.7-12.2) H 01/21/18 12:43 INR 1.5 01/21/18 12:43 APTT 30 SECONDS (21-34) 01/21/18 12:43 Attending/Attestation - Attestation I have personally seen and examined this patient.: Yes I have fully participated in the care of the patient.: Yes I have reviewed all pertinent clinical information, including history, physical exam and plan: Yes Notes (Text): 01/25/18 14:31 I have seen and examined patient with GI fellow. No acute events overnight, he is seen resting in bed comfortably. He denies abdominal pain, nausea, vomiting , fever/chills. Tolerating PO diet without difficulty. CVA with residual L sided weakness Pneumonia Brain tumor s/p resection HTN Seizure disorder Transaminitis - likely antibiotic induced given clinical scenario - Diet as tolerated - LFTs trending down, continue to monitor and avoid hepatotoxic therapies - Abdominal US reviewed by me showing patent vasculature, hepatomegaly, normal caliber CBD, +cholelithiasis - Obtain autoimmune panel testing - No further planned GI interventions, suggest additional outpatient follow up including age appropriate screening colonoscopy and LFT monitoring. Will sign off case, please reconsult as necessary, thank you.
[2018-01-25] MEDS: (Novolog) Insulin Aspart, Recombinant 100 u/ml 10 ml vial SC SCH ×3 (08:13→16:45)
[2018-01-25 08:19] LABS: HEMOGLOBIN 9.4 g/dL (12.0-18.0); MEAN CELL VOLUME 87.6 fL (80.0-94.0); MEAN CORPUSCULAR HEMOGLOBIN 30.6 pg (27.0-31.0); MEAN CORPUSCULAR HGB CONC 34.9 g/dL (33.0-37.0); MEAN PLATELET VOLUME 8.8 fL (7.2-11.7); RBC 3.08 Mil/uL (4.40-5.90); RED CELL DISTRIBUTION WIDTH 14.1 % (11.5-14.5); WHITE BLOOD COUNT 5.9 K/uL (4.8-10.8)
[2018-01-25 08:25] LABS: ALB/GLOB RATIO 0.9 (1.0-2.1); ALBUMIN 2.6 g/dL (3.5-5.0); ALT/SGPT 92 U/L (21-72); AST/SGOT 48 U/L (17-59); BLOOD UREA NITROGEN 19 mg/dL (9-20); CALCIUM 8.2 mg/dl (8.6-10.4); GFR AFRICAN-AMERICAN > 60; GFR NON-AFRICAN AMERICAN > 60
[2018-01-25 08:26] VITALS: RESP 20
--- NOTE | 2018-01-25 09:42 | EEG ---
DATE: EG REPORT INTRODUCTION: This is a digitally recorded EEG monitoring using standard EEG montages. BACKGROUND RHYTHM: The EEG shows a background activity of 8 Hz alpha activity in parietooccipital region. The EEG activity is bilaterally symmetrical and synchronous. There is attenuation of the background activity on eye opening. Small amount of myogenic artifact noticed in the EEG recording. ABNORMAL POTENTIALS: No spike, sharp waves, or focal slowing was seen. PHOTIC STIMULATION AND HYPERVENTILATION: Photic stimulation did not reveal any abnormality. Hyperventilation was not performed. IMPRESSION: Normal electroencephalogram. No epileptiform activity seen in this electroencephalogram recording. Curt Mitchell MD
[2018-01-25] MEDS: Multiple Vitamins Tab PO SCH (10:56)
[2018-01-25] MEDS: Enoxaparin 40 mg Syringe SC SCH (10:57)
[2018-01-25] MEDS: Bisacodyl 5mg EC Tab PO SCH (10:57)
[2018-01-25] MEDS: Divalproex 500 mg DR Tab PO SCH (10:59)
[2018-01-25] MEDS: Dorzolamide 2% Opht Sol 10ml OU SCH ×2 (11:00→14:49)
[2018-01-25] MEDS: cefTRIAXone 2 GM in Sodium Chloride 0.9% 100 ML IVPB SCH (12:31)
--- NOTE | 2018-01-25 15:55 | CP.PCM.PN ---
Subjective - Date & Time of Evaluation Date of Evaluation: 01/25/18 Time of Evaluation: 10:00 - Subjective Subjective: Patient seen and examined at bedside. Cough improved, no complaints at this time. Patient's family and Dr. Valentino felt the patient's pneumonia had resolved sufficiently and that he was ready for discharge yesterday. Abnormal LFTs led to GI consult and workup. Patient is now set to be discharged today. Assessment and Plan: 1. Pneumonia - CXR 01/21: Right infrahilar infiltrate - saturating 94-98% on 2L NC - 01/25 CBC: WBC 5.9 - Lactate 2.2 - 01/21 Blood culture: preliminary no growth - Dr. Norris on-board - Rocephin may be causing abnormal LFT's, GI recommends switching to another antibiotic Objective - Vital Signs/Intake and Output Vital Signs (last 24 hours): Temp Pulse Resp BP Pulse Ox 98.7 F 79 20 151/83 H 98 01/25/18 06:00 01/25/18 15:30 01/25/18 06:00 01/25/18 06:00 01/25/18 15:30 Intake and Output: 01/25/18 01/25/18 06:59 18:59 Intake Total 1120 975 Output Total 400 Balance 1120 575 - Medications Medications: Current Medications Acetaminophen (Tylenol 325mg Tab) 650 mg PO Q6 PRN PRN Reason: Fever >100.4 F Last Admin: 01/23/18 16:45 Dose: 650 mg Amlodipine Besylate (Norvasc) 10 mg PO DAILY [facility] Last Admin: 01/25/18 10:56 Dose: 10 mg Aspirin (Aspirin Chewable) 81 mg PO DAILY [facility] Last Admin: 01/25/18 10:56 Dose: 81 mg Bisacodyl (Dulcolax) 5 mg PO DAILY [facility] Last Admin: 01/25/18 10:57 Dose: 5 mg Divalproex Sodium (Depakote Dr) 500 mg PO BID [facility] Last Admin: 01/25/18 10:59 Dose: 500 mg Docusate Sodium (Colace) 100 mg PO HS [facility] Last Admin: 01/23/18 21:36 Dose: 100 mg Dorzolamide HCl (Trusopt) 0 ml OU TID [facility] Last Admin: 01/25/18 14:49 Dose: 1 drop Enoxaparin Sodium (Lovenox) 40 mg SC DAILY [facility] Last Admin: 01/25/18 10:57 Dose: 40 mg Ceftriaxone Sodium 2 gm/ (Sodium Chloride) 100 mls @ 100 mls/hr IVPB Q24H [facility] PRN Reason: Protocol Last Admin: 01/25/18 12:31 Dose: 100 mls/hr Insulin Aspart (Novolog) 0 unit SC ACHS [facility] PRN Reason: Protocol Last Admin: 01/25/18 12:29 Dose: 2 unit Insulin Detemir (Levemir) 35 unit SC HS [facility] Last Admin: 01/23/18 21:36 Dose: 35 unit Latanoprost (Xalatan Opht) 0 ml OU HS [facility] Last Admin: 01/23/18 21:35 Dose: 2.5 ml Losartan Potassium (Cozaar) 100 mg PO DAILY [facility] Last Admin: 01/25/18 10:56 Dose: 100 mg Metformin HCl (Glucophage Xr) 1,000 mg PO DAILY [facility] Last Admin: 01/25/18 10:59 Dose: 1,000 mg Multivitamins (Hexavitamin) 1 tab PO DAILY [facility] Last Admin: 01/25/18 10:56 Dose: 1 tab Oxcarbazepine (Trileptal) 150 mg PO DAILY [facility] Last Admin: 01/25/18 11:00 Dose: 150 mg Rosuvastatin Calcium (Crestor) 20 mg PO HS [facility] Last Admin: 01/23/18 21:35 Dose: 20 mg Sertraline HCl (Zoloft) 50 mg PO DAILY [facility] Last Admin: 01/25/18 10:56 Dose: 50 mg Sitagliptin Phosphate (Januvia) 100 mg PO DAILY [facility] Last Admin: 01/25/18 10:59 Dose: 100 mg - Labs Labs: 01/25/18 07:57 01/25/18 07:57 PT 16.5 SECONDS (9.7-12.2) H 01/21/18 12:43 INR 1.5 01/21/18 12:43 APTT 30 SECONDS (21-34) 01/21/18 12:43 Assessment and Plan (1) Pneumonia Status: Acute (2) Dizziness Status: Acute (3) CVA, old, hemiparesis Status: Acute
[2018-01-25 17:22] VITALS: BP 154/80; PULSE 87; TEMP 98.6; O2SAT 95
--- NOTE | 2018-01-26 04:39 | DS ---
HISTORY OF PRESENT ILLNESS: I saw him resting comfortably in bed. He is alert. He is eating comfortable. No chest pain or shortness of breath. No abdominal pain. He is in good spirits. MEDICATIONS: He is on aspirin, ceftriaxone, IV fluids, Colace, Cozaar, Crestor, Depakote, Dulcolax, Glucophage, multivitamins, Januvia, Levemir, Lovenox, Norvasc, NovoLog, IV fluids, Trileptal, Trusopt, Tylenol, Xalatan, Zoloft. PHYSICAL EXAMINATION: VITAL SIGNS: Temperature 97.7, pulse 66, blood pressure 139/84, respiratory rate 18, 98% O2 sat on 2 liters nasal cannula. GENERAL: He is comfortable. He is alert, he has had no complaints. He is smiling. He is eating. HEENT: Head is atraumatic, normocephalic. HEART: Regular rate and rhythm with decrease breath sounds but clear. ABDOMEN: Soft. EXTREMITIES: No edema. LABORATORY DATA: Yesterday his labs showed a 5.7 white count with a 9.1 hemoglobin, platelets of 171. His chemistry reveals 134 sodium, potassium 3.8, BUN 19, creatinine 0.6, sugar 208. Liver enzymes shows AST 122, ALT 142, alk phos 100 and were elevated. I have GI on the case, so I think so far could be medication, antibiotics related secondary to his pneumonia. I went through this morning liver enzymes tablets. We discharged him today. Most of his liver enzymes on the outpatient are that is my plan for today. Await for the labs to come back. Chest x-ray showing right pneumonia and elevated liver enzymes secondary to palliative treatment. There is an old craniotomy and brain surgery. Gilmar Valentino DO MTDD
== END 2018-01-25 17:45 | disposition home or self-care (01) | DRG 194 ==
LOC: C.ER 11:53 → C.9E 14:00 → C.3T 14:21
PROVIDERS: ADMIT Family Medicine; ATTEND Family Medicine
DX: J18.9 Pneumonia, unspecified organism (principal); I69.354 Hemiplegia and hemiparesis following cerebral infarction affecting left non-dominant side; E86.0 Dehydration; I10 Essential (primary) hypertension; E11.9 Type 2 diabetes mellitus without complications; G40.909 Epilepsy, unspecified, not intractable, without status epilepticus; F32.9 Major depressive disorder, single episode, unspecified; E78.00 Pure hypercholesterolemia, unspecified; H83.2X9 Labyrinthine dysfunction, unspecified ear; H54.61 Unqualified visual loss, right eye, normal vision left eye; R26.2 Difficulty in walking, not elsewhere classified; Z79.4 Long term (current) use of insulin; Z79.82 Long term (current) use of aspirin

== ENCOUNTER 2018-06-20 20:54 | Emergency (ER) | payer MEDICAID, MEDICARE ==
[2018-06-20 20:54] VITALS: BMI 27.3
--- NOTE | 2018-06-20 21:19 | C.PDOC ---
History Of Present Illness 62 y/o male brought to the ED via EMS for psychiatric evaluation. Patient called the ambulance from home for complaints of feeling depressed and hearing voices. He believes the customer experience associate of his house wants to kick him out. Patient states he wants to kill himself. Denies any associated fever, chills, nausea, vomiting, or other complaints. Time Seen by Provider: 06/20/18 21:19 Chief Complaint (Nursing): Psychiatric Evaluation History Per: Patient History/Exam Limitations: no limitations Onset/Duration Of Symptoms: Days Current Symptoms Are (Timing): Still Present Suicide/Self Injury Attempted (Context): None Associated Symptoms: Depression, Suicidal Thoughts Involuntary Hold By: None Additional History Per: EMS Past Medical History Reviewed: Historical Data, Nursing Documentation, Vital Signs Vital Signs: Last Vital Signs Temp 98.2 F 06/20/18 22:52 Pulse 78 06/21/18 03:36 Resp 16 06/21/18 03:36 BP 158/70 H 06/21/18 03:36 Pulse Ox 98 06/21/18 05:51 - Medical History PMH: Arthritis (BACK), Depression, Diabetes, HTN, Hypercholesterolemia (high lipids), Seizures, TIA Denies: Chronic Kidney Disease Surgical History: Tonsillectomy - [facility] Procedures INJECT/INFUSE ELECTROLYT (05/04/14) INJECT/INFUSE NEC (09/20/14) PSYCHIAT DRUG THERAP NEC (09/06/13) Family History: States: Unknown Family Hx, Diabetes - Social History Hx Tobacco Use: No Hx Alcohol Use: No Hx Substance Use: No - Immunization History Hx Tetanus Toxoid Vaccination: No Hx Influenza Vaccination: Yes Hx Pneumococcal Vaccination: No Review Of Systems Constitutional: Negative for: Fever, Chills Gastrointestinal: Negative for: Nausea, Vomiting Psych: Positive for: Depression, Suicidal ideation, Other (Auditory hallucinations) Physical Exam - Physical Exam Appears: Non-toxic, No Acute Distress, Unkempt Skin: Warm, Dry Head: Normacephalic, Other (Craniotomy scar noted) Eye(s): bilateral: Normal Inspection Oral Mucosa: Dry Neck: Trachea Midline, Supple Chest: Symmetrical Cardiovascular: Rhythm Regular Respiratory: No Rales, No Rhonchi, No Wheezing Gastrointestinal/Abdominal: Bowel Sounds (good), Soft, No Tenderness Back: No CVA Tenderness Male Genital: Other (dried feces in diaper) Extremity: No Swelling Extremity: Bilateral: Other (not moving) Pulses: Left Dorsalis Pedis: Normal, Right Dorsalis Pedis: Normal Neurological/Psych: Oriented x3, Other (Patient is wheelchair bound) Gait: Unable To Assess ED Course And Treatment - Laboratory Results Result Diagrams: 06/20/18 21:36 06/20/18 21:36 ECG: Interpreted By Me, Viewed By Me ECG Rhythm: Sinus Rhythm (90), Nonspecific Changes O2 Sat by Pulse Oximetry: 98 (RA) Pulse Ox Interpretation: Normal - Radiology CXR: Interpreted by Me, Viewed By Me CXR Interpretation: Yes: Other (mild venous congestion). No: Infiltrates, Fracture, Pnemothorax Progress Note: Labs, EKG, and chest x-ray ordered. utility worker driver will evaluate patient in the ED. Patient medically cleared for psych admission. 5:50AM Pt was accepted by dr reid to [facility]. Disposition Counseled Patient/Family Regarding: Studies Performed, Diagnosis - Disposition Disposition: OTHER INSTITUTION Disposition Time: 21:19 Condition: FAIR Forms: [employer] (Tamazight) - Clinical Impression Clinical Impression: Major depressive disorder with psychotic features - Scribe Statement The provider has reviewed the documentation as recorded by the Scribe (Shakira Mercedes) Provider Attestation: All medical record entries made by the Scribe were at my direction and personally dictated by me. I have reviewed the chart and agree that the record accurately reflects my personal performance of the history, physical exam, medical decision making, and the department course for this patient. I have also personally directed, reviewed, and agree with the discharge instructions and disposition. Physician Patient Turnover Patient Signed Over To: Jamila Galloway Handoff Comments: pending transfer to [facility]
[2018-06-20 21:43] LABS: BASO % 0.7 % (0.0-2.0); EOS # 0.1 K/uL (0.0-0.7); HEMOGLOBIN 11.1 g/dL (12.0-18.0); LYMPH # 1.8 K/uL (1.0-4.3); LYMPH % 41.3 % (20.0-40.0); MEAN CELL VOLUME 87.3 fL (80.0-94.0); MEAN CORPUSCULAR HEMOGLOBIN 31.3 pg (27.0-31.0); MEAN CORPUSCULAR HGB CONC 35.9 g/dL (33.0-37.0); MEAN PLATELET VOLUME 7.2 fL (7.2-11.7); MONO # 0.4 K/uL (0.0-0.8); MONO % 8.4 % (0.0-10.0); NEUT % 46.6 % (50.0-75.0); NRBC % 0.1 % (0.0-2.0); RBC 3.53 Mil/uL (4.40-5.90); RED CELL DISTRIBUTION WIDTH 14.1 % (11.5-14.5); WHITE BLOOD COUNT 4.4 K/uL (4.8-10.8)
[2018-06-20 22:03] LABS: ALB/GLOB RATIO 1.6 (1.0-2.1); ALBUMIN 3.9 g/dL (3.5-5.0); ALT/SGPT 19 U/L (21-72); AST/SGOT 12 U/L (17-59); BLOOD UREA NITROGEN 22 mg/dL (9-20); CALCIUM 9.6 mg/dl (8.6-10.4); GFR NON-AFRICAN AMERICAN > 60
[2018-06-20 22:25] LABS: SQUAMOUS EPITHIAL < 1 /hpf (0-5); URINE BACTERIA OCC (<OCC); URINE BILIRUBIN NEGATIVE (NEGATIVE); URINE CLARITY Clear (Clear); URINE COLOR Yellow (YELLOW); URINE GLUCOSE (UA) NORMAL (Normal); URINE LEUKOCYTE ESTERASE NEG Leu/uL (Negative); URINE PROTEIN 1+ mg/dL (NEGATIVE); URINE UROBILINOGEN NORMAL mg/dL (0.2-1.0)
[2018-06-20 22:36] LABS: URINE BLOOD TRACE (NEGATIVE)
[2018-06-20 22:50] LABS: BARBITURATES, UR NEGATIVE (NEGATIVE); BENZODIAZEPINES, UR NEGATIVE (NEGATIVE); OPIATES, UR NEGATIVE (NEGATIVE); PHENCYCLIDINE, UR NEGATIVE (NEGATIVE)
[2018-06-21 03:37] VITALS: PULSE 78
[2018-06-21 07:36] VITALS: BP 150/84; RESP 14; TEMP 98.6; O2SAT 97
--- NOTE | 2018-06-21 07:43 | RAD ---
Date of service: 06/20/2018 PROCEDURE: CHEST RADIOGRAPH, 1 VIEW HISTORY: Detox/Psy COMPARISON: Portable chest 01/21/2018. FINDINGS: LUNGS: Limited patchy airspace disease question in the medial right base with none on the left. PLEURA: No pneumothorax or pleural fluid seen. CARDIOVASCULAR: Normal. OSSEOUS STRUCTURES: No significant abnormalities. VISUALIZED UPPER ABDOMEN: Normal. OTHER FINDINGS: None. IMPRESSION: Borderline infiltrate right medial base. Examination otherwise unremarkable.
--- NOTE | 2018-06-21 16:46 | CARD ---
APPROVED REPORT Date of service: 06/20/2018 EKG Measurement Heart [id number] <Conclusion> Normal sinus rhythm Normal ECG
== END 2018-06-21 07:35 | disposition short-term general hospital (02) ==
LOC: C.ER 20:54
DX: F32.3 Major depressive disorder, single episode, severe with psychotic features (principal); E11.9 Type 2 diabetes mellitus without complications; I10 Essential (primary) hypertension; E78.00 Pure hypercholesterolemia, unspecified; Z86.73 Personal history of transient ischemic attack (TIA), and cerebral infarction without residual deficits
CPT/HCPCS: 71045; 80053; 81001; 82948; 85025; 93005; 99284; G0480

== ENCOUNTER 2019-01-08 23:35 | Emergency (ER) | payer MEDICARE, OTHER ==
[2019-01-08 23:35] VITALS: BMI 23.5
[2019-01-08 23:48] VITALS: O2SAT 97
--- NOTE | 2019-01-09 00:01 | C.PDOC ---
History Of Present Illness 63 year old male, with remote history of stroke with left-sided weakness, presents to the ED for evaluation of left arm pain which began after falling out of bed this morning. Patient complains of mild pain to his left shoulder and wrist. He denies head injury, LOC, extremity numbness/weakness. Additional information limited secondary to patient being a poor historian. Time Seen by Provider: 01/08/19 23:54 Chief Complaint (Nursing): Upper Extremity Problem/Injury History Per: Patient History/Exam Limitations: other (poor historian ) Onset/Duration Of Symptoms: Hrs Current Symptoms Are (Timing): Still Present Quality: "Pain" Additional History Per: Patient Past Medical History Reviewed: Historical Data, Nursing Documentation, Vital Signs Vital Signs: Last Vital Signs Temp 99.4 F 01/08/19 23:45 Pulse 91 H 01/08/19 23:45 Resp 16 01/08/19 23:45 BP 139/81 01/08/19 23:45 Pulse Ox 97 01/08/19 23:45 - Medical History PMH: Anxiety, Arthritis (BACK), Depression, Diabetes, Gall Bladder Disease (gallstones), HTN, Hypercholesterolemia, Peripheral Edema (left hand +2 swollen/contracted), Seizures, TIA Denies: Hepatitis, HIV, Chronic Kidney Disease, Sexually Transmitted Disease Surgical History: Tonsillectomy - [facility] Procedures GROUP PSYCHOTHERAPY (06/21/18) INJECT/INFUSE ELECTROLYT (05/04/14) INJECT/INFUSE NEC (09/20/14) PSYCHIAT DRUG THERAP NEC (09/06/13) Family History: States: Diabetes - Social History Hx Tobacco Use: No Hx Alcohol Use: No Hx Substance Use: No - Immunization History Hx Tetanus Toxoid Vaccination: No Hx Influenza Vaccination: Yes Hx Pneumococcal Vaccination: No Review Of Systems Musculoskeletal: Positive for: Shoulder Pain (left), Arm Pain (left ), Other (left wrist pain ) Neurological: Negative for: Weakness, Numbness, Other (head injury, LOC ) Physical Exam - Physical Exam Appears: Non-toxic, No Acute Distress Skin: Normal Color, Warm, Dry Head: Atraumatic, Normacephalic Eye(s): bilateral: Normal Inspection Oral Mucosa: Moist Neck: Normal ROM, Supple Chest: Symmetrical, No Deformity, No Tenderness Cardiovascular: Rhythm Regular, No Murmur Respiratory: Normal Breath Sounds, No Rales, No Rhonchi, No Wheezing Extremity: Tenderness (mild, to left forearm and left wrist ), Capillary Refill (less than 2 seconds ) Neurological/Psych: Normal Speech, Normal Cognition ED Course And Treatment O2 Sat by Pulse Oximetry: 97 (on RA ) Pulse Ox Interpretation: Normal Medical Decision Making Medical Decision Making: sp fall. pt well appearing c/o of minimal shoulder and forearm pain Progress: Left forearm and left shoulder XR ordered and reviewed. xr neg as read by me. in nad. stable for d.c Disposition - Disposition Disposition: HOME/ ROUTINE Disposition Time: 01:36 Condition: STABLE Additional Instructions: please follow up with your doctor/clinic. return to er with worsening. Instructions: Shoulder Sprain, Wrist Sprain (DC) Forms: [employer] (Italian) - Clinical Impression Clinical Impression: Fall, Arm sprain - Scribe Statement The provider has reviewed the documentation as recorded by the Scribe (Lyndsey Echols) Provider Attestation: All medical record entries made by the Scribe were at my direction and personally dictated by me. I have reviewed the chart and agree that the record accurately reflects my personal performance of the history, physical exam, m edical decision making, and the department course for this patient. I have also personally directed, reviewed, and agree with the discharge instructions and disposition.
[2019-01-09 01:39] VITALS: BP 150/90; PULSE 90; RESP 20; TEMP 98.9
--- NOTE | 2019-01-09 08:25 | RAD ---
Date of service: 01/09/2019 PROCEDURE: Radiographs of the Left Shoulder HISTORY: trauma COMPARISON: No prior. FINDINGS: BONES: No fracture seen. JOINTS: . Glenohumeral and acromioclavicular arthrosis. Thoracic and cervical spondylosis. SOFT TISSUES: Diffuse soft tissue subcutaneous reticulated edema. There is also paucity of muscle bundle mass OTHER FINDINGS: None. IMPRESSION: No fracture or dislocation. Multifocal arthrosis
--- NOTE | 2019-01-09 08:34 | RAD ---
Date of service: 01/09/2019 PROCEDURE: Radiographs of the Left Forearm HISTORY: trauma COMPARISON: None available. TECHNIQUE: Frontal and lateral views obtained. 2 views obtained. FINDINGS: BONES: There is partial clipping of the most proximal radius and ulna. To better assess this area recommend left elbow x-rays. There also altered anatomy over the carpal bone and particularly the proximal metacarpals-if there is any clinical suspicion of pathology here, a left wrist x-ray is advised. Potential fractures at these 2 segments cannot be excluded. The middle segment of the radius and ulna are without fracture. There areas of some diffuse cortical thickening and heavy atherosclerotic vascular calcifications present. There is paucity of muscle muscle mass also noted (and also noted on the left shoulder exam on this patient performed on the same day) There is marked osteopenia and osseous hypertrophy particularly limited assessment of the carpal bones and radiocarpal joint proper and metacarpal-carpal bone joints. As mentioned above pathology here in these carpal area cannot be excluded. If any clinical suspicion of pathology here exists a left wrist x-ray is advised. JOINT SPACES: Arthrosis radiocarpal joint-incomplete anatomical inclusion of the left elbow-left elbow x-rays recommended. OTHER FINDINGS: Atherosclerotic vascular calcifications present. IMPRESSION: Limited exam for reasons stated above. The middle to 3rd segments of the radius and ulna are without fracture. Extensive arthrosis and juxta-articular osteopenia at the elbow and carpal and intercarpal and metacarpophalangeal joints is noted. Please note the above comments and considerations. Clinical correlation with point of tenderness is needed.
== END 2019-01-09 01:38 | disposition home or self-care (01) ==
LOC: C.ER 23:35
DX: S43.402A Unspecified sprain of left shoulder joint, initial encounter (principal); W06.XXXA Fall from bed, initial encounter